=== PATIENT | female | born 1980 | race Caucasian/White ===

== ENCOUNTER 2017-06-05 00:28 | Emergency (ER) | payer OTHER ==
[~2017-06-05] VITALS: Ht 152.4 cm; Wt 79.4 kg
[~2017-06-05 00:28] MED LIST: 'PARAFON FORTE500 M1 PO; AMOXICILLIN500 M2 PO; ANAPROX DS550 MG PO; ATIVAN1 MG PO; AUGMENTIN 875 M1 TAB PO; AUGMENTIN 875875 MG PO; BENTYL10 MG PO; CIPRO500 MG PO; CIPROFLOXACIN500 MG PO; CLARITIN10 MG PO; CLINDAMYCIN HC300 MG PO; DARVOCET N 1001 TAB PO; DIFLUCAN150 MG PO; DOXYCYCLINE100 M3 PO; ELIMITE 5%60 GM T; FLAGYL500 MG PO; HYDROCODONE BIT1 T11 PO; IBU800 MG PO; LOMOTIL 0.025 M1 TAB PO; MOTRIN800 MG PO; Motrin,Rufen800 MG PO; NAPROSYN500 MG PO; NAPROXEN500 M1 PO; NORCO 325 MG-51 TAB PO; PEN-VEE K500 MG PO; PERCOCET 325 MG1 TA2 PO; PREDNISONE10 MG PO; PREDNISONE20 M1 PO; Phenergan25 MG PO; TRAMADOL HCL50 MG PO; ULTRAM50 MG PO; VALIUM10 MG PO; VENTOLIN H0.09 MG/AC INH; VIBRAMYCIN100 MG PO; VICODIN 5-3001 EACH PO; ZOFRAN ODT4 MG SL; ZOFRAN4 MG PO
[2017-06-05 01:07] LABS: BASO # 0.1 10*3/uL (0.0-0.1); BASO % 0.6 % (0.0-1.0); EOS # 0.3 10*3/uL (0.0-0.4); EOS % 2.5 % (1.0-4.0); HEMATOCRIT 42.4 % (37.0-47.0); HEMOGLOBIN 14.4 g/dl (12.0-16.0); LYMPH % 38.3 % (27.0-41.0); MEAN CELL VOLUME 93.8 fl (81.0-99.0); MEAN CORPUSCULAR HGB 31.9 pg (27.0-31.0); MEAN PLATELET VOLUME 9.5 fl (9.6-12.3); MONO # 0.7 10*3/uL (0.1-1.0); MONO % 6.8 % (3.0-9.0); NEUT # 5.4 10*3/uL (2.3-7.9); NEUT % 51.5 % (47.0-73.0); PLATELET COUNT AUTOMATED 262 10*3/uL (130-400); RED BLOOD COUNT 4.52 10*6/uL (4.10-5.10); RED CELL DISTRI WIDTH 12.7 % (0-14.5); WHITE BLOOD COUNT 10.5 10*3/uL (4.8-10.8)
[2017-06-05 01:23] LABS: ALBUMIN 3.4 gm/dl (3.1-4.5); ALKALINE PHOSPHATASE 91 U/L (45-117); BUN 11 mg/dl (7-24); CHLORIDE 106 mmol/L (98-107); CREATININE 0.93 mg/dL (0.55-1.02); POTASSIUM 3.8 mmol/L (3.5-5.1); SGOT/AST 13 IU/L (3-35); SGPT/ALT 15 U/L (12-78); SODIUM 140 mmol/L (136-145); TOTAL PROTEIN 6.9 gm/dL (6.4-8.2)
[2017-06-05 01:28] LABS: BILIRUBIN NEGATIVE (NEGATIVE); BLOOD 1+ (NEGATIVE); CLARITY CLEAR (CLEAR); COLOR YELLOW (YELLOW); GLUCOSE NEGATIVE (NEGATIVE); KETONE NEGATIVE (NEGATIVE); LEUKO ESTERASE 1+ (NEGATIVE); NITRITE NEGATIVE (NEGATIVE); SPECIFIC GRAVITY 1.015 (1.005-1.030)
[2017-06-05 01:35] LABS: BACTERIA 1+; RBC 16-20 rbc/hpf (0-2)
[2017-06-05] MEDS ORDERED: PYRIDIUM100 MG PO (02:51)
[2017-06-05] MEDS ORDERED: CIPRO500 MG PO (02:51)
== END 2017-06-05 03:07 | disposition home or self-care (01) ==
LOC: ED 00:28
PROVIDERS: Nurse Practitioner
DX: N39.0 Urinary tract infection, site not specified (principal); R10.32 Left lower quadrant pain; F17.200 Nicotine dependence, unspecified, uncomplicated; Z90.89 Acquired absence of other organs; Z90.710 Acquired absence of both cervix and uterus; Z88.2 Allergy status to sulfonamides

== ENCOUNTER 2017-08-14 13:25 | Emergency (ER) | payer OTHER ==
[~2017-08-14] VITALS: Ht 157.4 cm; Wt 81.6 kg
[~2017-08-14 13:25] MED LIST changes: +PYRIDIUM100 MG PO
[2017-08-14 14:11] LABS: BILIRUBIN 1+ (NEGATIVE); BLOOD 2+ (NEGATIVE); CLARITY SL CLOUDY (CLEAR); COLOR YELLOW (YELLOW); GLUCOSE NEGATIVE (NEGATIVE); KETONE TRACE (NEGATIVE); LEUKO ESTERASE TRACE (NEGATIVE); NITRITE NEGATIVE (NEGATIVE); PH 5.5 (5.0-9.0); SPECIFIC GRAVITY >= 1.030 (1.005-1.030)
[2017-08-14 14:13] LABS: BASO # 0.1 10*3/uL (0.0-0.1); BASO % 0.7 % (0.0-1.0); EOS # 0.2 10*3/uL (0.0-0.4); EOS % 2.1 % (1.0-4.0); HEMATOCRIT 44.7 % (37.0-47.0); LYMPH # 2.3 10*3/uL (1.3-4.4); LYMPH % 26.3 % (27.0-41.0); MEAN CELL VOLUME 92.5 fl (81.0-99.0); MEAN CORPUSCULAR HGB 31.1 pg (27.0-31.0); MEAN CORPUSCULAR HGB CONC 33.6 g/dl (33.0-37.0); MEAN PLATELET VOLUME 9.6 fl (9.6-12.3); MONO # 0.6 10*3/uL (0.1-1.0); MONO % 7.5 % (3.0-9.0); NEUT # 5.4 10*3/uL (2.3-7.9); PLATELET COUNT AUTOMATED 321 10*3/uL (130-400); RED BLOOD COUNT 4.83 10*6/uL (4.10-5.10); RED CELL DISTRI WIDTH 12.6 % (0-14.5); WHITE BLOOD COUNT 8.6 10*3/uL (4.8-10.8)
[2017-08-14 14:30] LABS: YEAST 2+
[2017-08-14 14:31] LABS: BACTERIA 1+; EPITHELIAL CELLS TNTC; MUCOUS 2+; RBC TNTC rbc/hpf (0-2)
[2017-08-14 14:38] LABS: ALBUMIN 3.2 gm/dl (3.1-4.5); ALKALINE PHOSPHATASE 110 U/L (45-117); BUN 3 mg/dl (7-24); CHLORIDE 105 mmol/L (98-107); LIPASE 80 U/L (73-393); POTASSIUM 3.5 mmol/L (3.5-5.1); SGOT/AST 15 IU/L (3-35); SGPT/ALT 15 U/L (12-78); SODIUM 139 mmol/L (136-145); TOTAL PROTEIN 7.1 gm/dL (6.4-8.2)
== END 2017-08-14 16:48 | disposition home or self-care (01) ==
LOC: ED 13:25
PROVIDERS: Physician Assistant
DX: B37.9 Candidiasis, unspecified (principal); R10.32 Left lower quadrant pain; Z88.2 Allergy status to sulfonamides; Z79.899 Other long term (current) drug therapy; Z90.89 Acquired absence of other organs

== ENCOUNTER 2018-02-01 12:26 | Emergency (ER) | payer OTHER ==
[~2018-02-01] VITALS: Ht 157.4 cm; Wt 66.7 kg
[2018-02-01] MEDS ORDERED: DOXYCYCLINE100 M3 PO (12:50)
[2018-02-01] MEDS ORDERED: NORCO 5-325 TA1 EACH PO (12:50)
[2018-02-01] MEDS ORDERED: Motrin,Rufen800 MG PO (12:50)
== END 2018-02-01 13:55 | disposition home or self-care (01) ==
LOC: ED 12:26
DX: L02.31 Cutaneous abscess of buttock (principal); Z88.2 Allergy status to sulfonamides

== ENCOUNTER 2018-04-12 16:33 | Emergency (ER) | payer OTHER ==
[~2018-04-12] VITALS: Ht 157.4 cm; Wt 63.5 kg
[~2018-04-12 16:33] MED LIST changes: +NORCO 5-325 TA1 EACH PO
[2018-04-12] MEDS ORDERED: CLINDAMYCIN HC300 MG PO (18:00)
[2018-04-12] MEDS ORDERED: NAPROSYN500 MG PO (18:00)
[2018-04-12] MEDS ORDERED: TYLENOL325 M1 PO (18:00)
== END 2018-04-12 18:05 | disposition home or self-care (01) ==
LOC: ED 16:33
DX: L02.31 Cutaneous abscess of buttock (principal); L73.2 Hidradenitis suppurativa; Z88.2 Allergy status to sulfonamides; F17.200 Nicotine dependence, unspecified, uncomplicated

== ENCOUNTER 2018-07-31 19:34 | Inpatient (IN) | payer SELFPAY ==
[~2018-07-31] VITALS: Ht 157.5 cm; Wt 57.4 kg
--- NOTE | ~2018-07-31 | CON ---
[place], [place] REPORT OF CONSULTATION NAME: BALDEV WALLS [facility] #: [id number] UNIT #: [id number] ROOM: 516 DOCTOR: BRANDIN REYES MD BIRTHDATE: [birth year] DOS: 08/02/2018 GASTROENDOSCOPIC REPORT HISTORY OF PRESENT ILLNESS: This is a 38-year-old patient who presented with chief complaint of diarrhea, abdominal cramp to Emergency Room. The patient has to be admitted for her investigation. Her white blood cell was 8.6, H and H of 14 and 40, differential within normal limits. Comprehensive metabolic panel, GFR greater than 60. Potassium was 3.2, which was supplemented. Liver function tests were normal. Surprisingly, her C-reactive protein was normal. Beta hCG urine was negative. Urinalysis, trace of blood, 3+ bacteria. CT scan of the abdomen done and diffuse mucosal thickening noticed of diffuse mucosal thickening noted of the distal and terminal ileum. The findings concerning for ileitis, possibly secondary to infectious diseases or inflammatory bowel diseases as we will address. Her potassium was corrected. B12, folate was done that was both low, folic 3.9. Vitamin D was 24. Vitamin B was 320 normal, stool cultures negative. C. diff negative, ova and parasite negative. No GERD, no cryptosporidium. PAST MEDICAL HISTORY: Associated with abdominal cramp and diarrhea. Concerned about diverticulitis, diverticulosis, irritable bowel syndrome, they all have been entertained as differential in her. PAST SURGICAL HISTORY: Cholecystectomy, appendectomy, bowel resection, hysterectomy, renal stent, T and A. SOCIAL HISTORY: Smoker, nonalcohol consumer. FAMILY HISTORY: Noncontributory. ALLERGIES: SULFA. MEDICATIONS: List has been reviewed including naproxen and ibuprofen and hydrocodone. REVIEW OF SYSTEMS: HEENT: Denies double vision, blurred vision. RESPIRATORY: Denies acute shortness of breath. CARDIOVASCULAR: Denies acute chest pain. DIGESTIVE SYSTEM: Abdominal pain, cramp, diarrhea. PHYSICAL EXAMINATION: VITAL SIGNS: Stable. HEENT: Within normal limit. NECK: Supple, no thyromegaly, no cervical lymphadenopathy. CHEST: Symmetric anatomy, equal expansion. No wheeze, no rhonchi. HEART: Normal sinus rhythm, no gallop, no murmur. ABDOMEN: Soft. No hepato-organomegaly. Bowel sounds within normal limits. EXTREMITIES: No cyanosis, no pedal edema. NEUROLOGIC: Alert, oriented to time, place, and person. [place], [place] REPORT OF CONSULTATION NAME: BALDEV WALLS UNIT #: [id number] ROOM: 516 DOCTOR: ERIC HODGE,BRANDIN BIRTHDATE: [birth year] IMPRESSION: Abdominal pain, diarrhea, ruling out Crohn's disease. Labs reviewed, hypokalemia has been corrected. Infectious Disease has been ruled out. Diverticulosis is known, renal stent UTI possibilities, work in progress for colonoscopy today. BRANDIN REYES MD CM:CONSTR:REPORT OF CONSULTATION 1122 08/02/18 7032 interface
--- NOTE | ~2018-07-31 | O ---
[place], [place] OPERATIVE NOTE NAME: BALDEV WALLS UNIT #: [id number] ROOM: 516 DOCTOR: ERIC HODGE,BRANDIN BIRTHDATE: [birth year] DOS: 08/02/2018 The patient has presented with abdominal pain, cramp, diarrhea has been already investigated hematologically and radiologically. PROCEDURE: Today's procedure part of investigation is colonoscopy plus biopsies. PREMEDICATION: Propofol. SCOPE: Olympus forwarding colonoscope 10L video. REPORT: After putting the patient in left lateral position and application of lubricant to the scope, the scope was introduced. Thereafter, under direct visualization, advanced through the length of colon without difficulty. Base of the cecum explored, appendiceal orifice identified except diverticulosis, no other pathology is seen. Terminal ileum with difficulty intubated. There is a long segment of terminal ileitis with ulceration, mucosal thickening, photographed, multiple biopsies obtained for documentation of Crohn's disease. The patient extubated, tolerated the procedure well. IMPRESSION AND PLAN: Crohn's disease, status post biopsy and photographic documentation. This patient requires to be on medication, optimal medication for her would be, except mesalamine, would be Humira; however, that is not available as inpatient coverage, I trust. I am going to see if Pentasa is covered for her. If it, so therefore, 1 gram q.i.d. of Pentasa total if it is 250 mg or 500 mg depending on availability and pharmacy and after that I am sure we are going to end up with Humira or Stelara or otherwise what biologic insurance company covers. Awaiting biopsy results for confirmation. Diet would be regular and activity ad jenny so far. BRANDIN REYES MD CM:OPRECORD:OPERATIVE NOTE 1122 12 BRANDIN REYES MD 08/02/182312 interface
[~2018-07-31 19:34] MED LIST changes: +TYLENOL325 M1 PO
[2018-07-31 19:36] VITALS: BP 117/85
[2018-07-31 20:15] LABS: BASO # 0.1 10*3/uL (0.0-0.1); BASO % 0.7 % (0.0-1.0); EOS # 0.3 10*3/uL (0.0-0.4); EOS % 3.1 % (1.0-4.0); HEMATOCRIT 40.9 % (37.0-47.0); LYMPH # 2.6 10*3/uL (1.3-4.4); LYMPH % 29.9 % (27.0-41.0); MEAN CELL VOLUME 94.7 fl (81.0-99.0); MEAN CORPUSCULAR HGB 32.4 pg (27.0-31.0); MEAN CORPUSCULAR HGB CONC 34.2 g/dl (33.0-37.0); MEAN PLATELET VOLUME 9.2 fl (9.6-12.3); MONO # 0.6 10*3/uL (0.1-1.0); MONO % 7.2 % (3.0-9.0); NEUT # 5.1 10*3/uL (2.3-7.9); NEUT % 58.8 % (47.0-73.0); PLATELET COUNT AUTOMATED 308 10*3/uL (130-400); RED BLOOD COUNT 4.32 10*6/uL (4.10-5.10); RED CELL DISTRI WIDTH 12.7 % (0-14.5); WHITE BLOOD COUNT 8.6 10*3/uL (4.8-10.8)
[2018-07-31 20:30] LABS: ALBUMIN 3.1 gm/dl (3.1-4.5); ALKALINE PHOSPHATASE 82 U/L (45-117); BUN 8 mg/dl (7-24); CHLORIDE 105 mmol/L (98-107); CREATININE 0.69 mg/dL (0.55-1.02); LIPASE 138 U/L (73-393); POTASSIUM 3.2 mmol/L (3.5-5.1); SGOT/AST 11 IU/L (3-35); SGPT/ALT 18 U/L (12-78); SODIUM 140 mmol/L (136-145); TOTAL PROTEIN 6.2 gm/dL (6.4-8.2)
[2018-07-31 20:40] VITALS: BP 127/78
[2018-07-31 21:01] LABS: BILIRUBIN NEGATIVE (NEGATIVE); BLOOD TRACE-INTACT (NEGATIVE); CLARITY SL CLOUDY (CLEAR); COLOR YELLOW (YELLOW); GLUCOSE NEGATIVE (NEGATIVE); KETONE NEGATIVE (NEGATIVE); LEUKO ESTERASE NEGATIVE (NEGATIVE); NITRITE NEGATIVE (NEGATIVE); SPECIFIC GRAVITY 1.015 (1.005-1.030); UROBILINOGEN 0.2 E.U./dl (0.2-1.0)
[2018-07-31 21:10] LABS: BACTERIA 3+
[2018-07-31 21:11] LABS: MUCOUS 2+; WBC 0-2 wbc/hpf (0-5)
[2018-07-31 22:00] VITALS: BP 102/56
[2018-08-01 00:45] VITALS: BP 101/70
[2018-08-01 04:00] VITALS: BP 111/63
[2018-08-01 06:41] LABS: BASO # 0.1 10*3/uL (0.0-0.1); BASO % 0.5 % (0.0-1.0); EOS # 0.1 10*3/uL (0.0-0.4); EOS % 1.5 % (1.0-4.0); HEMATOCRIT 41.1 % (37.0-47.0); HEMOGLOBIN 13.6 g/dl (12.0-16.0); LYMPH % 20.9 % (27.0-41.0); MEAN CELL VOLUME 97.2 fl (81.0-99.0); MEAN CORPUSCULAR HGB 32.2 pg (27.0-31.0); MEAN CORPUSCULAR HGB CONC 33.1 g/dl (33.0-37.0); MEAN PLATELET VOLUME 9.4 fl (9.6-12.3); MONO # 0.5 10*3/uL (0.1-1.0); MONO % 5.8 % (3.0-9.0); NEUT # 6.7 10*3/uL (2.3-7.9); NEUT % 71.1 % (47.0-73.0); PLATELET COUNT AUTOMATED 268 10*3/uL (130-400); RED BLOOD COUNT 4.23 10*6/uL (4.10-5.10); RED CELL DISTRI WIDTH 12.9 % (0-14.5); WHITE BLOOD COUNT 9.4 10*3/uL (4.8-10.8)
[2018-08-01 07:12] LABS: ALBUMIN 2.9 gm/dl (3.1-4.5); BUN 7 mg/dl (7-24); CHLORIDE 110 mmol/L (98-107); CHOLESTEROL 93 mg/dL (<200); CREATININE 0.67 mg/dL (0.55-1.02); PHOSPHOROUS 3.4 mg/dL (2.5-4.9); SGOT/AST 45 IU/L (3-35); SGPT/ALT 36 U/L (12-78); SODIUM 140 mmol/L (136-145); TOTAL PROTEIN 5.9 gm/dL (6.4-8.2); TRIGLYCERIDES 84 mg/dl (<150); VLDL CHOLESTEROL 17 mg/dL (6-40)
[2018-08-01 07:18] LABS: ALKALINE PHOSPHATASE 97 U/L (45-117); HDL CHOLESTEROL 32 mg/dl (40-60); LDL CHOLESTEROL 44 mg/dL (9-159)
[2018-08-01 07:25] LABS: POTASSIUM 4.2 mmol/L (3.5-5.1)
[2018-08-01 08:46] LABS: VITAMIN D, 25-HYDROXY 24.5 ng/mL (30-100)
[2018-08-01 12:00] VITALS: BP 102/69
[2018-08-01 16:00] VITALS: BP 101/59
[2018-08-01 20:00] VITALS: BP 89/51
[2018-08-01 20:10] VITALS: BP 82/62
[2018-08-02] VITALS (9 sets, daily range): BP systolic 11–123; BP diastolic 40–70
[2018-08-02 06:36] LABS: BASO # 0.1 10*3/uL (0.0-0.1); BASO % 0.8 % (0.0-1.0); EOS # 0.2 10*3/uL (0.0-0.4); HEMATOCRIT 38.6 % (37.0-47.0); HEMOGLOBIN 12.8 g/dl (12.0-16.0); LYMPH # 2.3 10*3/uL (1.3-4.4); MEAN CELL VOLUME 96.7 fl (81.0-99.0); MEAN CORPUSCULAR HGB 32.1 pg (27.0-31.0); MEAN CORPUSCULAR HGB CONC 33.2 g/dl (33.0-37.0); MEAN PLATELET VOLUME 9.7 fl (9.6-12.3); MONO # 0.5 10*3/uL (0.1-1.0); MONO % 6.2 % (3.0-9.0); NEUT # 4.9 10*3/uL (2.3-7.9); NEUT % 61.7 % (47.0-73.0); PLATELET COUNT AUTOMATED 263 10*3/uL (130-400); RED BLOOD COUNT 3.99 10*6/uL (4.10-5.10); RED CELL DISTRI WIDTH 12.8 % (0-14.5); WHITE BLOOD COUNT 7.9 10*3/uL (4.8-10.8)
[2018-08-02 06:53] LABS: BUN 6 mg/dl (7-24); CHLORIDE 107 mmol/L (98-107); CREATININE 0.58 mg/dL (0.55-1.02); PHOSPHOROUS 2.7 mg/dL (2.5-4.9); POTASSIUM 3.3 mmol/L (3.5-5.1); SODIUM 139 mmol/L (136-145)
[2018-08-03] VITALS: BP 93/59
[2018-08-03 06:34] LABS: BASO # 0.1 10*3/uL (0.0-0.1); BASO % 0.8 % (0.0-1.0); EOS # 0.2 10*3/uL (0.0-0.4); EOS % 2.9 % (1.0-4.0); HEMATOCRIT 36.3 % (37.0-47.0); HEMOGLOBIN 11.9 g/dl (12.0-16.0); LYMPH # 2.2 10*3/uL (1.3-4.4); LYMPH % 34.1 % (27.0-41.0); MEAN CELL VOLUME 97.1 fl (81.0-99.0); MEAN CORPUSCULAR HGB 31.8 pg (27.0-31.0); MEAN CORPUSCULAR HGB CONC 32.8 g/dl (33.0-37.0); MEAN PLATELET VOLUME 9.7 fl (9.6-12.3); MONO # 0.5 10*3/uL (0.1-1.0); MONO % 7.4 % (3.0-9.0); NEUT # 3.6 10*3/uL (2.3-7.9); NEUT % 54.5 % (47.0-73.0); PLATELET COUNT AUTOMATED 248 10*3/uL (130-400); RED BLOOD COUNT 3.74 10*6/uL (4.10-5.10); WHITE BLOOD COUNT 6.5 10*3/uL (4.8-10.8)
[2018-08-03 06:44] LABS: CHLORIDE 109 mmol/L (98-107); POTASSIUM 3.9 mmol/L (3.5-5.1); SODIUM 138 mmol/L (136-145)
[2018-08-03 06:51] LABS: ALBUMIN 2.4 gm/dl (3.1-4.5); ALKALINE PHOSPHATASE 71 U/L (45-117); BUN 7 mg/dl (7-24); SGOT/AST 10 IU/L (3-35); SGPT/ALT 20 U/L (12-78)
[2018-08-03 08:00] VITALS: BP 88/50
[2018-08-03 12:00] VITALS: BP 109/69
[2018-08-03 16:00] VITALS: BP 148/77
[2018-08-03 20:00] VITALS: BP 116/73
[2018-08-04] VITALS: BP 95/56
[2018-08-04 06:24] LABS: BASO % 0.6 % (0.0-1.0); EOS # 0.2 10*3/uL (0.0-0.4); EOS % 3.1 % (1.0-4.0); HEMATOCRIT 36.7 % (37.0-47.0); HEMOGLOBIN 12.2 g/dl (12.0-16.0); LYMPH # 1.9 10*3/uL (1.3-4.4); LYMPH % 26.3 % (27.0-41.0); MEAN CELL VOLUME 96.1 fl (81.0-99.0); MEAN CORPUSCULAR HGB 31.9 pg (27.0-31.0); MEAN CORPUSCULAR HGB CONC 33.2 g/dl (33.0-37.0); MEAN PLATELET VOLUME 9.4 fl (9.6-12.3); MONO # 0.5 10*3/uL (0.1-1.0); MONO % 7.5 % (3.0-9.0); NEUT # 4.4 10*3/uL (2.3-7.9); NEUT % 62.2 % (47.0-73.0); PLATELET COUNT AUTOMATED 245 10*3/uL (130-400); RED BLOOD COUNT 3.82 10*6/uL (4.10-5.10); RED CELL DISTRI WIDTH 12.9 % (0-14.5)
[2018-08-04 06:53] LABS: ALBUMIN 2.4 gm/dl (3.1-4.5); BUN 7 mg/dl (7-24); CHLORIDE 108 mmol/L (98-107); CREATININE 0.64 mg/dL (0.55-1.02); POTASSIUM 4.1 mmol/L (3.5-5.1); SGOT/AST 11 IU/L (3-35); SGPT/ALT 18 U/L (12-78); SODIUM 140 mmol/L (136-145)
[2018-08-04 06:55] LABS: ALKALINE PHOSPHATASE 65 U/L (45-117); TOTAL PROTEIN 5.5 gm/dL (6.4-8.2)
[2018-08-04 08:00] VITALS: BP 94/62
[2018-08-04 12:00] VITALS: BP 108/60
[2018-08-04] MEDS ORDERED: HUMIRA40 MG/0.3 SQ (15:11)
[2018-08-04] MEDS ORDERED: HUMIRA PEN80 MG/0.8 SQ (15:11)
[2018-08-04] MEDS ORDERED: NATURE'S BLEND F1 MG PO (15:11)
[2018-08-04] MEDS ORDERED: VITAMIN D32000 UNI1 PO (15:11)
== END 2018-08-04 17:30 | disposition home or self-care (01) | DRG 386 ==
LOC: ED 19:34 → EDHOLD 23:27 → 5E 23:27
PROVIDERS: Internal Medicine; Student in an Organized Health Care Education/Training Program
PROC: 0DBB8ZX Excision of Ileum, Via Natural or Artificial Opening Endoscopic, Diagnostic (ICD-10-PCS; principal; 2018-08-02)
DX: K50.00 Crohn's disease of small intestine without complications (principal); E44.0 Moderate protein-calorie malnutrition; K63.3 Ulcer of intestine; K52.9 Noninfective gastroenteritis and colitis, unspecified; E87.6 Hypokalemia; E86.0 Dehydration; R31.29 Other microscopic hematuria; R82.71 Bacteriuria; N20.0 Calculus of kidney; K57.90 Diverticulosis of intestine, part unspecified, without perforation or abscess without bleeding; Z90.49 Acquired absence of other specified parts of digestive tract; Z91.09 Other allergy status, other than to drugs and biological substances; Z72.0 Tobacco use; Z71.6 Tobacco abuse counseling; Z88.2 Allergy status to sulfonamides; Z87.440 Personal history of urinary (tract) infections; Z90.710 Acquired absence of both cervix and uterus; Z84.89 Family history of other specified conditions; Z68.23 Body mass index [BMI] 23.0-23.9, adult

== ENCOUNTER → 2018-09-07 | Outpatient (CLI) | payer SELFPAY ==
[~2018-09-07] MED LIST changes: +BALSALAZIDE DI750 MG PO; +Carafate1 GM/10 ML PO; +HUMIRA PEN80 MG/0.8 SQ; +HUMIRA40 MG/0.3 SQ; +NATURE'S BLEND F1 MG PO; +PANTOPRAZOLE SO40 MG PO; +VITAMIN D32000 UNI1 PO; +[UNRECOGNIZED DRUG - REMARK] PO
== END | disposition home or self-care (01) ==
LOC: RESCLI 02:44
DX: Z00.00 Encounter for general adult medical examination without abnormal findings (principal); K50.918 Crohn's disease, unspecified, with other complication; E55.9 Vitamin D deficiency, unspecified; E53.8 Deficiency of other specified B group vitamins; F17.210 Nicotine dependence, cigarettes, uncomplicated; Z79.899 Other long term (current) drug therapy; Z90.49 Acquired absence of other specified parts of digestive tract; Z71.6 Tobacco abuse counseling; Z88.2 Allergy status to sulfonamides; Z91.010 Allergy to peanuts

== ENCOUNTER 2018-10-29 03:47 | Inpatient (IN) | payer SELFPAY ==
[2018-10-29] VITALS (22 sets, daily range): BP systolic 84–112; BP diastolic 50–70
[~2018-10-29] VITALS: Ht 157.4 cm; Wt 59.4 kg
--- NOTE | ~2018-10-29 | O ---
[place], [place] OPERATIVE NOTE [id number] UN[facility] #: [id number] ROOM: 415 DOCTOR: BRANDIN REYES MD BIRTHDATE: [birth year] DOS: 10/30/2018 INDICATIONS: This is a 38-year-old patient, who is presented with chief complaint of abdominal pain, undergoing investigation. The patient with known history of established Crohn's colitis, status post bowel resection. She is on Humira therapy. PROCEDURE: Today's procedure part of investigation is panendoscopy plus biopsy. PREMEDICATION: Propofol. SCOPE: Olympus forward-viewing gastroscope Q10 video. REPORT: After putting the patient in left lateral position and application of lubricant to the scope, the scope was introduced. Thereafter, under direct visualization, advanced through the length of esophagus without difficulty. Gastric pouch was entered. Evidence of gastritis was noticed. As I entered the duodenum irregularity of the duodenum consistent with duodenitis and superficial ulcerations, multiple in D2 of the anatomy was noticed. Multiple biopsies obtained. Scope was gradually withdrawn. The patient extubated, tolerated the procedure well. IMPRESSION: Duodenitis, duodenal ulcers, status post multiple biopsies, gastritis, and history of Crohn's disease. PLAN AND DISCUSSION: We will continue with the scheduled Humira every other week. Supportive management otherwise. Labs and records have been reviewed. There is no point of acute concern. Followup with her own collarette separator. BRANDIN REYES MD CM:OPRECORD:OPERATIVE NOTE 1154 1209 BRANDIN REYES MD 11/01/18 5820 interface
--- NOTE | ~2018-10-29 | EKG ---
[place], [place] ELECTROCARDIOGRAM REPORT NAME: BALDEV WALLS UNIT #: [id number] ROOM: 415 DOCTOR: IANANY DRAFT REPORT BIRTHDATE: [birth year] [facility] Test Date: 2018-10-29 Test Time: 04:09:49 Pat Name: BALDEV WALLS Department: Room: 415 Gender: F Paramedical Aide: Janine Galarza : 1980 Requested By: MARTHA FLETCHER Order Number: [id number] Reading MD: Loretta Ojeda MD Measurements Intervals [place] Rate: 81 P: 68 LA: 156 QRS: 79 QRSD: 110 T: 52 QT: 386 QTc: 448 Interpretive Statements Sinus rhythm RSR' in V1 or V2, right VCD or RVH No previous ECG available for comparison Electronically Signed On 10-29-2018 7:27:26 PST by Loretta Ojeda MD CM:EKGRPT:ELECTROCARDIOGRAM REPORT [id number] MARTHA FLETCHER MD EPIPHANY DRAFT REPORT MARTHA FLETCHER MD
--- NOTE | ~2018-10-29 | CON ---
[place], [place] REPORT OF CONSULTATION NAME: BALDEV WALLS [facility] #: [id number] UNIT #: [id number] ROOM: 415 DOCTOR: BRANDIN REYES MD BIRTHDATE: [birth year] DOS: 10/30/2018 GASTROENDOSCOPIC CONSULTATION REPORT HISTORY OF PRESENT ILLNESS: A 38-year-old patient who presented with chief complaint of epigastric abdominal pain, undergoing investigation. The patient has been admitted through Emergency Room with white blood cell of 8, H and H of 13 and 38, differential within normal limit. Lactic acid normal. Comprehensive metabolic panel, INR 0.9. Chest x-ray, no acute cardiopulmonary. Comprehensive metabolic panel reassessed again, normal findings. Liver function tests, kidneys normal. CT scan of the abdomen and pelvis was done consistent with subtle ileitis, presumably inflammatory given history of Crohn's, so this is presumed be secondary to carrying a history of Crohn's disease; however, none substantiated. Urine cultures negative. CBC differentials within normal limits. PAST MEDICAL HISTORY: Diverticulosis, Crohn's, nephrolithiasis, irritable bowel syndrome, scabies. PAST SURGICAL HISTORY: Cholecystectomy, hysterectomy, renal stent, tonsillectomy, adenoidectomy, appendectomy. SOCIAL HISTORY: Smoker of a pack of cigarettes daily. Nonalcohol consumer. She is consumer of 6-pack of carbonated soda drinks per day. FAMILY HISTORY: Noncontributory. ALLERGIES: SULFA. MEDICATIONS: List was reviewed. She is on Humira for her Crohn's disease. REVIEW OF SYSTEMS: In general, HEENT: Denies double vision, blurred vision. RESPIRATORY: Denies shortness of breath. CARDIOVASCULAR: Denies chest pain. DIGESTIVE SYSTEM: Epigastric abdominal pain. PHYSICAL EXAMINATION: VITAL SIGNS: Stable. HEENT: Head normocephalic, nontraumatic. Mouth and buccal mucosa benign. NECK: Supple, no thyromegaly, no cervical lymphadenopathy. CHEST: Symmetric anatomy, equal expansion. No wheeze. No rhonchi. COPD pattern, however. HEART: Normal sinus rhythm, no gallop, no murmur. ABDOMEN: Soft. No hepato-organomegaly. Bowel sounds present. No pulsatile mass. EXTREMITIES: No cyanosis. No pedal edema. NEUROLOGIC: Alert, oriented to time, place, person. IMPRESSION: Epigastric abdominal pain, history of Crohn's disease, history of [place], [place] REPORT OF CONSULTATION NAME: BALDEV WALLS [facility] #: [id number] UNIT #: [id number] ROOM: 415 DOCTOR: ERIC HODGE,BRANDIN BIRTHDATE: [birth year] irritable bowel syndrome, the patient is on Humira. CT scan readings wall thickening and mucosal enhancement of the terminal ileum. This history has already been confirmed. Anastomotic sutures has been noticed in the abdomen. PLAN AND DISCUSSION: We are going to endoscopically assess the patient making sure she does not have peptic ulcer disease. As far as her Crohn's disease is concerned, she is already confirmed to have the disease and on medication. BRANDIN REYES MD CM:CONSTR:REPORT OF CONSULTATION 1140 10/31/18 0018 interface
[~2018-10-29 03:47] MED LIST changes: -BALSALAZIDE DI750 MG PO; -Carafate1 GM/10 ML PO; -PANTOPRAZOLE SO40 MG PO; -[UNRECOGNIZED DRUG - REMARK] PO
[2018-10-29 04:16] LABS: BASO % 0.5 % (0.0-1.0); EOS # 0.2 10*3/uL (0.0-0.4); EOS % 2.4 % (1.0-4.0); HEMATOCRIT 38.7 % (37.0-47.0); HEMOGLOBIN 13.2 g/dl (12.0-16.0); LYMPH # 2.5 10*3/uL (1.3-4.4); LYMPH % 31.4 % (27.0-41.0); MEAN CELL VOLUME 93.3 fl (81.0-99.0); MEAN CORPUSCULAR HGB 31.8 pg (27.0-31.0); MEAN CORPUSCULAR HGB CONC 34.1 g/dl (33.0-37.0); MEAN PLATELET VOLUME 9.4 fl (9.6-12.3); MONO # 0.6 10*3/uL (0.1-1.0); MONO % 7.7 % (3.0-9.0); NEUT # 4.7 10*3/uL (2.3-7.9); NEUT % 57.9 % (47.0-73.0); PLATELET COUNT AUTOMATED 275 10*3/uL (130-400); RED BLOOD COUNT 4.15 10*6/uL (4.10-5.10); WHITE BLOOD COUNT 8.1 10*3/uL (4.8-10.8)
[2018-10-29 04:26] LABS: INTERNATIONAL NORM RATIO 0.9 (2.0-3.5)
--- NOTE | 2018-10-29 04:38 | NUR ---
PATIENT REPORTS PAIN RELIEF WITH MEDICATION
[2018-10-29 04:39] LABS: ALBUMIN 2.7 gm/dl (3.1-4.5); ALKALINE PHOSPHATASE 86 U/L (45-117); BUN 16 mg/dl (7-24); CHLORIDE 103 mmol/L (98-107); CREATININE 0.64 mg/dL (0.55-1.02); LIPASE 133 U/L (73-393); POTASSIUM 4.1 mmol/L (3.5-5.1); SGOT/AST 9 IU/L (3-35); SGPT/ALT 10 U/L (12-78); SODIUM 137 mmol/L (136-145); TOTAL PROTEIN 6.2 gm/dL (6.4-8.2)
[2018-10-29 05:12] LABS: BILIRUBIN NEGATIVE (NEGATIVE); BLOOD NEGATIVE (NEGATIVE); CLARITY SL CLOUDY (CLEAR); COLOR YELLOW (YELLOW); GLUCOSE NEGATIVE (NEGATIVE); KETONE NEGATIVE (NEGATIVE); LEUKO ESTERASE NEGATIVE (NEGATIVE); NITRITE NEGATIVE (NEGATIVE); SPECIFIC GRAVITY <= 1.005 (1.005-1.030); UROBILINOGEN 0.2 E.U./dl (0.2-1.0)
[2018-10-29 05:22] LABS: BACTERIA 3+
--- NOTE | 2018-10-29 05:23 | NUR ---
PATIENT NOTED TO BE HYPOTENSIVE ON MONITOR. SPO2 91% ON ROOM AIR. UPON ENTERING THE PATIENT'S ROOM, SHE IS ASLEEP. 2L NC APPLIED. SPO2 NOW 95% ON 2L. DR GUERRERO AWARE. ANOTHER NS BOLUS STARTED.
--- NOTE | 2018-10-29 06:05 | NUR ---
PATIENT PLACED BACK ON O2 AFTER BEING REMOVED APPROX 5 MINUTES AGO FOR SPO2 OF 100% ON 2LNC. SPO2 DROPPED TO 91% WITHOUT O2
--- NOTE | 2018-10-29 07:23 | NUR ---
A 38, admitted to , under the services of FRANCESCO Esqueda DO with a diagnosis of ILEITIS, TERMINAL. Chief complaint is DIARRHEA. Patient arrived via bed from ER. Initial assessment completed. Vital signs taken and recorded. FRANCESCO ESQUEDA DO notified of admission to the unit. Orders received. See assessment for past medical history, medications and allergies. Patient and/or family oriented to unit. [facility] visitation policy reviewed. Clothing/patient valuable form completed. JERAMY MOLINA
--- NOTE | 2018-10-29 08:09 | NUR ---
24 HR chart check completed. Patient resting quietly with no c/o discomfort. Respirations easy and regular. Vital signs stable. No overt distress. ELLYN BOWER
[2018-10-29] MEDS ORDERED: [UNRECOGNIZED DRUG - REMARK] PO (08:57)
--- NOTE | 2018-10-29 09:05 | NUR ---
MEDICATED WITH PO NORCO ORDERED PER PT REQUEST FOR C/O PAIN TO LUQ RATED 10/10 AND "HURTING TO EVEN TALK".
[2018-10-29] MEDS ORDERED: BALSALAZIDE DI750 MG PO (10:34)
--- NOTE | 2018-10-29 11:00 | NUR ---
DR LEARY NOTIFIED THAT PT'S MEDS ARE RECONCILED.
--- NOTE | 2018-10-29 11:14 | NUR ---
MEDICATION EFFECTIVE FOR PAIN.
--- NOTE | 2018-10-29 14:32 | NUR ---
MEDICATED WITH PO NORCO ORDERED PER PT REQUEST FOR C/O LUQ PAIN RATED 10/10. PREVIOUS DOSE SOMEWHAT EFFECTIVE.
--- NOTE | 2018-10-29 16:08 | NUR ---
DR LEARY NOTIFIED OF PT'S C/O THAT PAIN MEDICATION IS NOT CURRENTLY EFFECTIVE AND THAT SHE WANTS A NICOTINE PATCH.
--- NOTE | 2018-10-29 17:43 | NUR ---
DR LEARY AWARE OF CONTINUED PAIN COMPLAINTS BY PT AND STATES TO GIVE NORCO NOW.
--- NOTE | 2018-10-29 18:00 | NUR ---
MEDICATED WITH PO NORCO ORDERED PER PT REQUEST FOR C/O PAIN TO LUQ. PREVIOUS DOSE NOT EFFECTIVE.
--- NOTE | 2018-10-29 18:45 | NUR ---
MEDICATION EFFECTIVE FOR PAIN AT THIS TIME.
[2018-10-30] VITALS (9 sets, daily range): BP systolic 101–138; BP diastolic 49–89
--- NOTE | 2018-10-30 02:32 | NUR ---
ZOFRAN GIVEN PER C/O NAUSEA WILL CONT TO MONTIOR
--- NOTE | 2018-10-30 03:31 | NUR ---
TYLENOL GIVEN PER REQUEST FOR C/O ABDOMINAL PAIN
[2018-10-30 06:09] LABS: BASO % 0.1 % (0.0-1.0); HEMATOCRIT 37.1 % (37.0-47.0); HEMOGLOBIN 12.4 g/dl (12.0-16.0); LYMPH % 14.8 % (27.0-41.0); MEAN CELL VOLUME 93.9 fl (81.0-99.0); MEAN CORPUSCULAR HGB 31.4 pg (27.0-31.0); MEAN CORPUSCULAR HGB CONC 33.4 g/dl (33.0-37.0); MEAN PLATELET VOLUME 9.9 fl (9.6-12.3); MONO # 0.2 10*3/uL (0.1-1.0); MONO % 2.2 % (3.0-9.0); NEUT # 5.6 10*3/uL (2.3-7.9); NEUT % 82.5 % (47.0-73.0); PLATELET COUNT AUTOMATED 268 10*3/uL (130-400); RED BLOOD COUNT 3.95 10*6/uL (4.10-5.10); RED CELL DISTRI WIDTH 11.9 % (0-14.5); WHITE BLOOD COUNT 6.7 10*3/uL (4.8-10.8)
[2018-10-30 06:23] LABS: BUN 10 mg/dl (7-24); CHLORIDE 109 mmol/L (98-107); CHOLESTEROL 102 mg/dL (<200); CREATININE 0.57 mg/dL (0.55-1.02); PHOSPHOROUS 2.4 mg/dL (2.5-4.9); POTASSIUM 4.2 mmol/L (3.5-5.1); SODIUM 140 mmol/L (136-145); TRIGLYCERIDES 61 mg/dl (<150); VLDL CHOLESTEROL 12 mg/dL (6-40)
--- NOTE | 2018-10-30 06:28 | NUR ---
PT NPO FOR EGD WITH DR REYES
[2018-10-30 06:32] LABS: HDL CHOLESTEROL 41 mg/dl (40-60); LDL CHOLESTEROL 49 mg/dL (9-159); THYROID STIM HORMONE (HS) 0.224 uIU/ml (0.358-4.75)
--- NOTE | 2018-10-30 09:00 | NUR ---
Lamp Assembler in to talk to patient. Patient states lives at home with ava. There are few steps in the home. Physician: [facility]acy: [facility] Home health services: none Patient's level of ADLs: INDEPENDENT Patient has working utilities: all working DME: none Follow-up physician's appointment after d/c: will be made by [facility] nurse director upon discharge Does patient want to access PORTAL?: no Discharge plan discussed with patient, patient lives at home with ava, she states she is independent in adls and ambulation, works, drives, patient states she will be going home when able and denies any home needs. BAILEE EDWARDS
--- NOTE | 2018-10-30 09:00 | NUR ---
case management also discussed with patient her not having any insurance, informed her that Janae from [employer] would be talking with her regaring help with paying the hospital bill. 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
[2018-10-30 09:09] LABS: VITAMIN D, 25-HYDROXY 30.8 ng/mL (30-100)
--- NOTE | 2018-10-30 10:00 | NUR ---
Pt taken off floor to OR for EGD.
--- NOTE | 2018-10-30 14:16 | NUR ---
Medicated with norco per prn order for complaints of abdominal pain.
--- NOTE | 2018-10-30 15:18 | NUR ---
Pt states she is still experiencing abdominal pain, pt is tearful holding left lower quad of abdomen. Pt had just finished eating lunch. Pt states norco given earlier has not helped. Spoke with Dr. Rodrigez, he states he is here on 4th floor and will come and see pt.
--- NOTE | 2018-10-30 15:36 | NUR ---
Medicated with morphine iv per prn order for complaints of abdominal pain.
--- NOTE | 2018-10-30 16:03 | NUR ---
Pt states that morphine was effective.
--- NOTE | 2018-10-30 20:59 | NUR ---
MEDICATED WITH PO NORCO ORDERED PER PT REQUEST FOR C/O PAIN RATED 5/10 TO ABDOMEN.
[2018-10-31] VITALS: BP 89/50
[2018-10-31 07:17] LABS: HEMOGLOBIN 12.3 g/dl (12.0-16.0); LYMPH # 1.7 10*3/uL (1.3-4.4); LYMPH % 27.2 % (27.0-41.0); MEAN CELL VOLUME 95.2 fl (81.0-99.0); MEAN CORPUSCULAR HGB 30.8 pg (27.0-31.0); MEAN CORPUSCULAR HGB CONC 32.4 g/dl (33.0-37.0); MEAN PLATELET VOLUME 9.6 fl (9.6-12.3); MONO # 0.3 10*3/uL (0.1-1.0); MONO % 5.4 % (3.0-9.0); NEUT # 4.2 10*3/uL (2.3-7.9); NEUT % 66.9 % (47.0-73.0); PLATELET COUNT AUTOMATED 267 10*3/uL (130-400); RED BLOOD COUNT 3.99 10*6/uL (4.10-5.10); WHITE BLOOD COUNT 6.3 10*3/uL (4.8-10.8)
[2018-10-31 07:38] LABS: BUN 9 mg/dl (7-24); CHLORIDE 108 mmol/L (98-107); CREATININE 0.54 mg/dL (0.55-1.02); POTASSIUM 4.1 mmol/L (3.5-5.1); SODIUM 141 mmol/L (136-145)
[2018-10-31 08:00] VITALS: BP 121/77
--- NOTE | 2018-10-31 09:00 | NUR ---
case management visits with patient, patient states she will be going home when able and denies any home needs
--- NOTE | 2018-10-31 09:34 | NUR ---
PT REQUESTED NORCO, ABDOMINAL PAIN 03/14.
[2018-10-31] MEDS ORDERED: NORCO 5-325 TA1 EACH PO (10:28)
[2018-10-31] MEDS ORDERED: PREDNISONE10 MG PO (10:28)
--- NOTE | 2018-10-31 11:45 | NUR ---
Discharge instructions reviewed with patient/family. Patient receptive and verbalizes understanding. Follow-up care understood, pt has seen resident clinic in the past and will call to make an appointment. understands to follow up with . iv removed, dressing applied. Written instructions given to patient/family. pt given norco rx. declined wheelchair for discharge SILVERIO MENDEZ
[2018-11-16] MEDS ORDERED: Carafate1 GM/10 ML PO (14:28)
[2018-11-16] MEDS ORDERED: PANTOPRAZOLE SO40 MG PO (14:28)
[2018-11-16] MEDS ORDERED: NORCO 5-325 TA1 EACH PO (14:59)
[2019-01-16] MEDS ORDERED: MEDROL DOSEPAK4 MG PO (10:00)
[2019-01-16] MEDS ORDERED: LOMOTIL 2.5-0.1 EACH PO (10:01)
[2019-02-08] MEDS ORDERED: IMURAN50 MG PO (09:31)
[2019-02-08] MEDS ORDERED: CARAFATE1 G1 PO (09:32)
[2019-02-11] MEDS ORDERED: IMURAN50 MG PO (10:26)
[2019-02-11] MEDS ORDERED: PREDNISONE10 MG PO (10:26)
[2019-02-11] MEDS ORDERED: BALSALAZIDE DI750 MG PO (10:26)
== END 2018-10-31 11:45 | disposition home or self-care (01) | DRG 385 ==
LOC: ED 03:47 → 4E 05:25 → EDHOLD 05:25 → 4E 05:39
PROVIDERS: Emergency Medicine Emergency Medical Services; Internal Medicine; ADMIT Internal Medicine
PROC: 0DB78ZX Excision of Stomach, Pylorus, Via Natural or Artificial Opening Endoscopic, Diagnostic (ICD-10-PCS; principal; 2018-10-30)
DX: K50.00 Crohn's disease of small intestine without complications (principal); E43 Unspecified severe protein-calorie malnutrition; I95.9 Hypotension, unspecified; K29.80 Duodenitis without bleeding; K26.9 Duodenal ulcer, unspecified as acute or chronic, without hemorrhage or perforation; K29.70 Gastritis, unspecified, without bleeding; R00.1 Bradycardia, unspecified; E87.8 Other disorders of electrolyte and fluid balance, not elsewhere classified; F17.210 Nicotine dependence, cigarettes, uncomplicated; K57.90 Diverticulosis of intestine, part unspecified, without perforation or abscess without bleeding; Z71.6 Tobacco abuse counseling; Z87.442 Personal history of urinary calculi; Z90.49 Acquired absence of other specified parts of digestive tract; Z90.710 Acquired absence of both cervix and uterus; Z88.2 Allergy status to sulfonamides; Z79.899 Other long term (current) drug therapy; Z82.0 Family history of epilepsy and other diseases of the nervous system; Z68.23 Body mass index [BMI] 23.0-23.9, adult

== ENCOUNTER 2018-11-24 12:27 | Inpatient (IN) | payer OTHER ==
[~2018-11-24] VITALS: Ht 157.4 cm; Wt 59.0 kg
[~2018-11-24 12:27] MED LIST changes: +BALSALAZIDE DI750 MG PO; +Carafate1 GM/10 ML PO; +PANTOPRAZOLE SO40 MG PO; +[UNRECOGNIZED DRUG - REMARK] PO
[2018-11-24 12:28] VITALS: BP 124/81
[2018-11-24 13:52] LABS: BILIRUBIN NEGATIVE (NEGATIVE); BLOOD 2+ (NEGATIVE); CLARITY CLEAR (CLEAR); COLOR YELLOW (YELLOW); GLUCOSE NEGATIVE (NEGATIVE); KETONE NEGATIVE (NEGATIVE); LEUKO ESTERASE NEGATIVE (NEGATIVE); NITRITE NEGATIVE (NEGATIVE); PH 5.5 (5.0-9.0); SPECIFIC GRAVITY 1.015 (1.005-1.030); UROBILINOGEN 0.2 E.U./dl (0.2-1.0)
[2018-11-24 13:56] LABS: BASO # 0.1 10*3/uL (0.0-0.1); BASO % 0.7 % (0.0-1.0); EOS # 0.2 10*3/uL (0.0-0.4); EOS % 2.2 % (1.0-4.0); HEMATOCRIT 44.8 % (37.0-47.0); LYMPH # 2.8 10*3/uL (1.3-4.4); LYMPH % 36.4 % (27.0-41.0); MEAN CELL VOLUME 95.1 fl (81.0-99.0); MEAN CORPUSCULAR HGB 31.8 pg (27.0-31.0); MEAN CORPUSCULAR HGB CONC 33.5 g/dl (33.0-37.0); MEAN PLATELET VOLUME 9.2 fl (9.6-12.3); MONO # 0.5 10*3/uL (0.1-1.0); MONO % 6.8 % (3.0-9.0); NEUT # 4.1 10*3/uL (2.3-7.9); NEUT % 53.6 % (47.0-73.0); PLATELET COUNT AUTOMATED 291 10*3/uL (130-400); RED BLOOD COUNT 4.71 10*6/uL (4.10-5.10); RED CELL DISTRI WIDTH 12.7 % (0-14.5); WHITE BLOOD COUNT 7.6 10*3/uL (4.8-10.8)
[2018-11-24 14:04] LABS: BACTERIA TRACE; MUCOUS 1+; WBC 0-2 wbc/hpf (0-5)
[2018-11-24 14:28] LABS: ALBUMIN 3.2 gm/dl (3.1-4.5); ALKALINE PHOSPHATASE 73 U/L (45-117); BUN 8 mg/dl (7-24); CHLORIDE 107 mmol/L (98-107); CREATININE 0.61 mg/dL (0.55-1.02); LIPASE 128 U/L (73-393); POTASSIUM 3.8 mmol/L (3.5-5.1); SGOT/AST 11 IU/L (3-35); SGPT/ALT 16 U/L (12-78); SODIUM 138 mmol/L (136-145); TOTAL PROTEIN 6.8 gm/dL (6.4-8.2)
--- NOTE | 2018-11-24 16:20 | NUR ---
THE FENTANYL DID HELP WITH THE PATIENTS PAIN LEVEL
[2018-11-24 17:00] VITALS: BP 107/62
--- NOTE | 2018-11-24 17:00 | NUR ---
A 38, admitted to , under the services of ISMAEL Murray DO with a diagnosis of EXACERBATION OF CROHNS DISEASE. Chief complaint is ABDOMINAL PAIN. Patient arrived via wheel chair from ER. Monitor applied. Initial assessment completed. Vital signs taken and recorded. ISMAEL MURRAY DO notified of admission to the unit. Orders received. See assessment for past medical history, medications and allergies. Patient and/or family oriented to unit. [facility] visitation policy reviewed. Clothing/patient valuable form completed. SHIRIN CUEVAS
--- NOTE | 2018-11-24 18:45 | NUR ---
PHYSICIAN NOTIFIED THAT PT MED REC IS UP TO DATE AT THIS TIME.
[2018-11-24 20:00] VITALS: BP 110/64
--- NOTE | 2018-11-24 20:18 | NUR ---
RAMONACO GIVEN PER ORDER FOR ABD PAIN RATED "8". SEE MAR.
--- NOTE | 2018-11-24 21:15 | NUR ---
DIAN EFFECTIVE PER PT.
[2018-11-25] VITALS: BP 102/69
--- NOTE | 2018-11-25 01:31 | NUR ---
24 HR chart check completed.
--- NOTE | 2018-11-25 02:02 | NUR ---
NORCO GIVEN PER ORDER FOR ABD PAIN RATED "7-8" PER PTAmeya GUY.
--- NOTE | 2018-11-25 04:00 | NUR ---
SLEEPING NO DISTRESS NOTED.
[2018-11-25 06:23] LABS: ALBUMIN 2.5 gm/dl (3.1-4.5); ALKALINE PHOSPHATASE 62 U/L (45-117); BASO % 0.1 % (0.0-1.0); BUN 9 mg/dl (7-24); CHLORIDE 110 mmol/L (98-107); CREATININE 0.47 mg/dL (0.55-1.02); EOS % 0.1 % (1.0-4.0); HEMOGLOBIN 12.5 g/dl (12.0-16.0); LYMPH # 1.4 10*3/uL (1.3-4.4); MEAN CELL VOLUME 95.6 fl (81.0-99.0); MEAN CORPUSCULAR HGB 32.2 pg (27.0-31.0); MEAN CORPUSCULAR HGB CONC 33.7 g/dl (33.0-37.0); MEAN PLATELET VOLUME 9.8 fl (9.6-12.3); MONO # 0.4 10*3/uL (0.1-1.0); MONO % 4.1 % (3.0-9.0); NEUT # 7.2 10*3/uL (2.3-7.9); NEUT % 79.3 % (47.0-73.0); PHOSPHOROUS 3.1 mg/dL (2.5-4.9); PLATELET COUNT AUTOMATED 247 10*3/uL (130-400); POTASSIUM 3.9 mmol/L (3.5-5.1); RED BLOOD COUNT 3.88 10*6/uL (4.10-5.10); RED CELL DISTRI WIDTH 12.6 % (0-14.5); SGOT/AST 10 IU/L (3-35); SGPT/ALT 13 U/L (12-78); SODIUM 140 mmol/L (136-145); TOTAL PROTEIN 5.5 gm/dL (6.4-8.2)
[2018-11-25 06:24] LABS: HEMATOCRIT 37.1 % (37.0-47.0)
[2018-11-25 06:29] LABS: ACT PARTIAL THROMBO TIME 23.4 SECONDS (20.8-31.5); INTERNATIONAL NORM RATIO 0.9 (2.0-3.5)
[2018-11-25 08:00] VITALS: BP 112/74
--- NOTE | 2018-11-25 08:45 | NUR ---
AWAKE, RESTING IN BED. RESPIRATIONS EASY. LUNGS CLEAR. PULSE OX 99% RA. ABD SOFT WITH NORMOACTIVE BOWEL SOUNDS. MEDCIATED WITH ZOFRAN IV PER PRN ORDER FOR COMPLAINTS OF NAUSEA PRIOR TO INITIATED CT PREP. OFFERED AND EDUCATED REGARDING TEDS, DECLINED. IV FLUIDS INFUSING PER ORDER. CALL LIGHT WITHIN REACH.
--- NOTE | 2018-11-25 09:45 | NUR ---
CT PREP COMPLETE
--- NOTE | 2018-11-25 10:00 | NUR ---
CT CANCELLED PER DR FONTAINE
--- NOTE | 2018-11-25 10:15 | NUR ---
dr saldana here to assess patient and discuss plan of care
--- NOTE | 2018-11-25 10:22 | NUR ---
MEDCIATED WITH NORCO PER PRN ORDER FOR COMPLAINTS OF ABD PAIN RATING AN 8. CALL LIGHT WITHIN REACH. WILL MONITOR
[2018-11-25 12:00] VITALS: BP 121/68
--- NOTE | 2018-11-25 12:00 | NUR ---
STATES RELIEF FROM EARLIER MEDS. CALL LIGHT WITHIN REACH. NO VOICED FURTHER COMPLAINTS
--- NOTE | 2018-11-25 13:00 | NUR ---
AMBULATED TO SHOWER.
--- NOTE | 2018-11-25 14:00 | NUR ---
RESTING IN BED WITH NO ACUTE DISTRESS NOTED. TOLERATING MEALS
[2018-11-25 16:00] VITALS: BP 119/72
--- NOTE | 2018-11-25 17:01 | NUR ---
REQUESTED AND RECEIVED NORCO PER PRN ORDER FOR COMPLAINTS OF ABD OAIN RATING A 9. CALL LIGHT WITHIN REACH. WILL MONITOR FOR EFFECTIVENESS
--- NOTE | 2018-11-25 18:00 | NUR ---
STATES RELIEF FROM EARLIER PAIN MEDS. CALL LIGHT WITHIN REACH. NO FURTHER VOICED COMPLAINTS
--- NOTE | 2018-11-25 19:45 | NUR ---
TYLENOL GIVEN PER ORDER FOR ABD PAIN RATED "7" PT. MORE BLOATED SINCE DRINKING PREP. ENCOURAGE PATIENT TO WALK TO HELP MOVE BOWELS. PT. UNDERSTOOD.
[2018-11-25 20:00] VITALS: BP 103/51
--- NOTE | 2018-11-25 22:00 | NUR ---
UP TO BATHROOM HAD FORMED STOOL
--- NOTE | 2018-11-25 23:12 | NUR ---
NORCO GIVEN PER ORDER FOR ABD PAIN RATED "7"
[2018-11-26] VITALS: BP 102/60
--- NOTE | 2018-11-26 00:12 | NUR ---
NORCO EFFECTIVE FOR ABD PAIN.
--- NOTE | 2018-11-26 03:06 | NUR ---
24 HR chart check completed.
[2018-11-26 06:20] LABS: BASO % 0.6 % (0.0-1.0); EOS # 0.1 10*3/uL (0.0-0.4); EOS % 1.1 % (1.0-4.0); HEMATOCRIT 36.7 % (37.0-47.0); HEMOGLOBIN 12.1 g/dl (12.0-16.0); LYMPH # 2.8 10*3/uL (1.3-4.4); LYMPH % 39.3 % (27.0-41.0); MEAN CELL VOLUME 96.3 fl (81.0-99.0); MEAN CORPUSCULAR HGB 31.8 pg (27.0-31.0); MEAN PLATELET VOLUME 9.4 fl (9.6-12.3); MONO # 0.5 10*3/uL (0.1-1.0); MONO % 7.3 % (3.0-9.0); NEUT # 3.7 10*3/uL (2.3-7.9); NEUT % 51.1 % (47.0-73.0); PLATELET COUNT AUTOMATED 234 10*3/uL (130-400); RED BLOOD COUNT 3.81 10*6/uL (4.10-5.10); RED CELL DISTRI WIDTH 12.6 % (0-14.5); WHITE BLOOD COUNT 7.2 10*3/uL (4.8-10.8)
--- NOTE | 2018-11-26 06:30 | NUR ---
NORCO GIVEN PER ORDER FOR ABD PAIN RATED "7".
[2018-11-26 06:57] LABS: ALBUMIN 2.6 gm/dl (3.1-4.5); ALKALINE PHOSPHATASE 59 U/L (45-117); BUN 11 mg/dl (7-24); CHLORIDE 108 mmol/L (98-107); CREATININE 0.54 mg/dL (0.55-1.02); POTASSIUM 3.8 mmol/L (3.5-5.1); SGOT/AST 13 IU/L (3-35); SGPT/ALT 15 U/L (12-78); SODIUM 141 mmol/L (136-145); TOTAL PROTEIN 5.6 gm/dL (6.4-8.2)
--- NOTE | 2018-11-26 07:25 | NUR ---
DIAN EFFECTIVE PER PT.
[2018-11-26 08:00] VITALS: BP 118/70
[2018-11-26] MEDS ORDERED: Carafate1 GM/10 ML PO (10:30)
[2018-11-26] MEDS ORDERED: PREDNISONE20 M1 PO (10:30)
[2018-11-26] MEDS ORDERED: HYDROCODONE-AC1 EAC1 PO (10:30)
--- NOTE | 2018-11-26 12:07 | NUR ---
Discharge instructions reviewed with patient/family. Patient receptive and verbalizes understanding. Follow-up care arranged. Written instructions given to patient/family. HEPLOCK REMOVED 2X2 APPLIED. AMBULATORY OFF THE FLOOR FOR DISCHARGE. PRESCRIPTIONS GIVEN TO PT. NATHANAEL SANTOS
[2019-01-16] MEDS ORDERED: MEDROL DOSEPAK4 MG PO (10:00)
[2019-01-16] MEDS ORDERED: LOMOTIL 2.5-0.1 EACH PO (10:01)
[2019-02-08] MEDS ORDERED: IMURAN50 MG PO (09:31)
[2019-02-08] MEDS ORDERED: CARAFATE1 G1 PO (09:32)
[2019-02-11] MEDS ORDERED: BALSALAZIDE DI750 MG PO (10:26)
[2019-02-11] MEDS ORDERED: IMURAN50 MG PO (10:26)
[2019-02-11] MEDS ORDERED: PREDNISONE10 MG PO (10:26)
== END 2018-11-26 12:08 | disposition home or self-care (01) | DRG 386 ==
LOC: ED 12:27 → EDHOLD 14:56 → 5E 16:06
PROVIDERS: Emergency Medicine; Internal Medicine; Internal Medicine Nephrology; ADMIT Internal Medicine
DX: K50.019 Crohn's disease of small intestine with unspecified complications (principal); E44.0 Moderate protein-calorie malnutrition; K57.30 Diverticulosis of large intestine without perforation or abscess without bleeding; N20.0 Calculus of kidney; L73.2 Hidradenitis suppurativa; K52.9 Noninfective gastroenteritis and colitis, unspecified; F17.210 Nicotine dependence, cigarettes, uncomplicated; Z90.49 Acquired absence of other specified parts of digestive tract; Z91.09 Other allergy status, other than to drugs and biological substances; Z88.2 Allergy status to sulfonamides; Z71.6 Tobacco abuse counseling; Z82.0 Family history of epilepsy and other diseases of the nervous system; Z68.23 Body mass index [BMI] 23.0-23.9, adult

== ENCOUNTER 2018-12-06 10:43 | Emergency (ER) | payer OTHER ==
[~2018-12-06] VITALS: Ht 157.4 cm; Wt 59.0 kg
[~2018-12-06 10:43] MED LIST changes: +HYDROCODONE-AC1 EAC1 PO
[2018-12-06 11:15] LABS: BASO # 0.1 10*3/uL (0.0-0.1); BASO % 0.5 % (0.0-1.0); EOS # 0.1 10*3/uL (0.0-0.4); EOS % 0.9 % (1.0-4.0); HEMOGLOBIN 14.5 g/dl (12.0-16.0); LYMPH # 3.3 10*3/uL (1.3-4.4); LYMPH % 32.5 % (27.0-41.0); MEAN CELL VOLUME 94.5 fl (81.0-99.0); MEAN CORPUSCULAR HGB 31.9 pg (27.0-31.0); MEAN CORPUSCULAR HGB CONC 33.7 g/dl (33.0-37.0); MEAN PLATELET VOLUME 8.7 fl (9.6-12.3); MONO # 0.5 10*3/uL (0.1-1.0); MONO % 4.9 % (3.0-9.0); NEUT # 6.1 10*3/uL (2.3-7.9); NEUT % 60.6 % (47.0-73.0); PLATELET COUNT AUTOMATED 328 10*3/uL (130-400); RED BLOOD COUNT 4.55 10*6/uL (4.10-5.10); RED CELL DISTRI WIDTH 12.8 % (0-14.5)
[2018-12-06 11:36] LABS: ALBUMIN 2.8 gm/dl (3.1-4.5); ALKALINE PHOSPHATASE 70 U/L (45-117); BUN 9 mg/dl (7-24); CHLORIDE 106 mmol/L (98-107); CREATININE 0.74 mg/dL (0.55-1.02); POTASSIUM 3.4 mmol/L (3.5-5.1); SGOT/AST 9 IU/L (3-35); SGPT/ALT 16 U/L (12-78); SODIUM 141 mmol/L (136-145); TOTAL PROTEIN 6.4 gm/dL (6.4-8.2)
[2018-12-06 11:50] LABS: BILIRUBIN NEGATIVE (NEGATIVE); BLOOD TRACE-INTACT (NEGATIVE); CLARITY SL CLOUDY (CLEAR); COLOR YELLOW (YELLOW); GLUCOSE NEGATIVE (NEGATIVE); KETONE NEGATIVE (NEGATIVE); LEUKO ESTERASE NEGATIVE (NEGATIVE); NITRITE NEGATIVE (NEGATIVE); PH 5.5 (5.0-9.0); SPECIFIC GRAVITY >= 1.030 (1.005-1.030); UROBILINOGEN 0.2 E.U./dl (0.2-1.0)
[2018-12-06] MEDS ORDERED: PREPARATION H26 GM T (14:06)
[2018-12-06] MEDS ORDERED: LOMOTIL 2.5-0.1 EACH PO (14:08)
[2019-01-16] MEDS ORDERED: MEDROL DOSEPAK4 MG PO (10:00)
[2019-01-16] MEDS ORDERED: LOMOTIL 2.5-0.1 EACH PO (10:01)
[2019-02-08] MEDS ORDERED: IMURAN50 MG PO (09:31)
[2019-02-08] MEDS ORDERED: CARAFATE1 G1 PO (09:32)
[2019-02-11] MEDS ORDERED: PREDNISONE10 MG PO (10:26)
[2019-02-11] MEDS ORDERED: BALSALAZIDE DI750 MG PO (10:26)
[2019-02-11] MEDS ORDERED: IMURAN50 MG PO (10:26)
== END 2018-12-06 14:17 | disposition home or self-care (01) ==
LOC: ED 10:43
PROVIDERS: Emergency Medicine
DX: R10.9 Unspecified abdominal pain (principal); R19.7 Diarrhea, unspecified; F12.90 Cannabis use, unspecified, uncomplicated; F17.210 Nicotine dependence, cigarettes, uncomplicated; K21.9 Gastro-esophageal reflux disease without esophagitis; Z90.89 Acquired absence of other organs; Z90.710 Acquired absence of both cervix and uterus; Z90.49 Acquired absence of other specified parts of digestive tract; Z98.890 Other specified postprocedural states; Z88.2 Allergy status to sulfonamides; Z79.899 Other long term (current) drug therapy

== ENCOUNTER 2018-12-08 08:25 | Inpatient (IN) | payer OTHER ==
[~2018-12-08] VITALS: Ht 157.4 cm; Wt 59.4 kg
[2018-12-08] VITALS (7 sets, daily range): BP systolic 100–124; BP diastolic 65–79
--- NOTE | ~2018-12-08 | CON ---
[place], [place] REPORT OF CONSULTATION NAME: BALDEV WALLS UNIT #: [id number] ROOM: 531 DOCTOR: BRANDIN REYES MD BIRTHDATE: [birth year] DOS: 12/08/2018 HISTORY OF PRESENT ILLNESS: The patient is a 38-year-old patient who presented with a chief complaint of abdominal pain, diarrhea, nausea, vomiting, history of Crohn's disease, on Humira. She presented to the Emergency Room with abdominal pain. PAST MEDICAL HISTORY: Associated nephrolithiasis, irritable bowel syndrome, as well as Crohn's disease, diverticulosis, on Crohn's therapy. PAST SURGICAL HISTORY: Appendectomy, cholecystectomy, bowel resection, renal stent, T and A, hysterectomy. SOCIAL HISTORY: Smoker of marijuana and carbonated soda consumer. ALLERGIES: SULFA. FAMILY HISTORY: Noncontributory. MEDICATIONS: List reviewed. REVIEW OF SYSTEMS: HEENT: Denies double vision or blurred vision. RESPIRATORY: Denies shortness of breath. CARDIOVASCULAR: Denies acute chest pain. DIGESTIVE SYSTEM: Nausea, vomiting, epigastric pain, diarrhea. PHYSICAL EXAMINATION: VITAL SIGNS: Stable. HEENT: Within normal limits. NECK: Supple. No thyromegaly. No cervical lymphadenopathy. CHEST: Symmetric anatomy, equal expansion. No wheeze. No rhonchi. HEART: Normal sinus rhythm. No gallop. No murmur. ABDOMEN: Soft. No hepato-organomegaly. Bowel sounds present. EXTREMITIES: There is no cyanosis. No pedal edema. NEUROLOGIC: Alert and oriented to time, place and person. LABORATORY DATA: Reviewed. Records reviewed. White blood cells of 11, otherwise differential within normal limits. Comprehensive metabolic panel, electrolyte balance. Bilirubin 0.1. Liver function test was normal. Urinalysis was appreciated. Lactic acid baseline 1.6. IMPRESSION: Crohn's disease, diarrhea, and possible unresponsiveness to even Humira therapy. PLAN AND DISCUSSION: We are going to proceed with colonoscopic and endoscopic evaluation for the patient's history of persistent epigastric abdominal pain and Crohn's disease [place], [place] REPORT OF CONSULTATION NAME: BALDEV WALLS UNIT #: [id number] ROOM: 531 DOCTOR: BRANDIN REYES MDDATE: [birth year] BRANDIN REYES MD CM:CONSTR:REPORT OF CONSULTATION 1507 12/09/18 0704 interface
--- NOTE | ~2018-12-08 | O ---
[place], [place] OPERATIVE NOTE NAME: BALDEV WALLS UNIT #: [id number] ROOM: 531 DOCTOR: ERIC HODGEBRANDIN BIRTHDATE: [birth year] DOS: 12/08/2018 IDENTIFICATION: The patient is a 38-year-old patient who presented with a chief complaint of epigastric abdominal pain, undergoing investigation for nausea, vomiting, diarrhea, Crohn's disease, on Humira therapy. PROCEDURE: Today's procedure part of investigation is panendoscopy and colonoscopy. PREMEDICATION: Propofol. SCOPE: Olympus forward-viewing gastroscope Q10 video. REPORT: After putting the patient in left lateral position and application of lubricant to the scope, the scope was introduced, thereafter under direct visualization advanced through the length of esophagus without difficulty. Esophagus, cervicothoracic distally carefully examined. Gastric pouch was entered, gastritis noted. Antral biopsy was obtained, duodenal patency, second and third part within normal limits. The patient was extubated, tolerated the procedure well. IMPRESSION: Gastritis status post biopsy. PLAN AND DISCUSSION: We are going to proceed with colonoscopy. IDENTIFICATION: The patient has presented with a chief complaint of epigastric abdominal pain, diarrhea, Crohn's, cramps, on Humira. PROCEDURE #2: Today's procedure part of investigation is colonoscopy and terminal ileoscopy and biopsy. PREMEDICATION: Propofol. SCOPE: Olympus forward-viewing colonoscope 10L video. REPORT: After putting the patient in left lateral position and application of lubricant to the scope, the scope was introduced, thereafter under direct visualization advanced through the length of colon without difficulty. Colon mucosa and vascularity carefully examined. Terminal ileum was entered. Diffuse ulceration of the terminal ileum was photographed. Multiple biopsies obtained. [place] Crohn's disease in the terminal ileum was identified. The patient was extubated after biopsy, tolerated the procedure well. IMPRESSION: Colonoscopy and status post terminal ileoscopy and biopsies, advanced Crohn's disease in the terminal ileum has been expressed. PLAN AND DISCUSSION: Continuation with Humira and supportive management. I am going to start her on a trial of metronidazole as well IV. Thank you very much indeed. [place], [place] OPERATIVE NOTE NAME: BALDEV WALLS UNIT #: [id number] ROOM: 531 DOCTOR: BRANDIN REYES MD BIRTHDATE: [birth year] BRANDIN REYES MD CM:OPRECORD:OPERATIVE NOTE 1507 [id number] BRANDIN REYES MD 12/09/18 0714 interface
[~2018-12-08 08:25] MED LIST changes: +LOMOTIL 2.5-0.1 EACH PO; +PREPARATION H26 GM T
--- NOTE | 2018-12-08 10:30 | NUR ---
Time: 1029 A 38 year old FEMALE admitted to under services of SAGAR DEVINE DO. Pt. arrived via ambulatory from ADMITTING Chief complaint: N/V/D. ANDREW FRAIRE
[2018-12-08 11:06] LABS: BASO # 0.1 10*3/uL (0.0-0.1); BASO % 0.5 % (0.0-1.0); EOS # 0.1 10*3/uL (0.0-0.4); EOS % 0.8 % (1.0-4.0); HEMATOCRIT 42.1 % (37.0-47.0); LYMPH # 3.4 10*3/uL (1.3-4.4); MEAN CELL VOLUME 95.2 fl (81.0-99.0); MEAN CORPUSCULAR HGB 31.7 pg (27.0-31.0); MEAN CORPUSCULAR HGB CONC 33.3 g/dl (33.0-37.0); MONO # 0.6 10*3/uL (0.1-1.0); MONO % 5.4 % (3.0-9.0); NEUT # 6.9 10*3/uL (2.3-7.9); NEUT % 61.8 % (47.0-73.0); PLATELET COUNT AUTOMATED 313 10*3/uL (130-400); RED BLOOD COUNT 4.42 10*6/uL (4.10-5.10); RED CELL DISTRI WIDTH 12.8 % (0-14.5); WHITE BLOOD COUNT 11.1 10*3/uL (4.8-10.8)
[2018-12-08 11:31] LABS: ALBUMIN 2.8 gm/dl (3.1-4.5); ALKALINE PHOSPHATASE 66 U/L (45-117); BUN 14 mg/dl (7-24); CHLORIDE 107 mmol/L (98-107); CREATININE 0.67 mg/dL (0.55-1.02); SGOT/AST 17 IU/L (3-35); SGPT/ALT 17 U/L (12-78); SODIUM 141 mmol/L (136-145); TOTAL PROTEIN 6.3 gm/dL (6.4-8.2)
--- NOTE | 2018-12-08 13:28 | NUR ---
2 3/4 L TAP WATER ENEMA & FLEETS UNTIL CLEAR. PT UNABLE TO TOLERATE ANY MORE AT THIS TIME. NOTIFIED OR. PT TRANSFERRED VIA BED TO OR FOR COLO.
--- NOTE | 2018-12-08 18:16 | NUR ---
NORCO 5/325 MG GIVEN FOR C/O PAIN TO ABD,04/14.
--- NOTE | 2018-12-08 22:00 | NUR ---
PATIENT'S HOME MED REQ UP TO DATE. DENIES COMPLAINTS OF PAIN OR DISCOMFORT AT THIS TIME. RESPIRATIONS REGULAR AND NON-LABORED. WILL CONTINUE TO MONITOR. CALL LIGHT IN REACH.
[2018-12-09] VITALS: BP 93/60
[2018-12-09 06:23] LABS: BASO # 0.1 10*3/uL (0.0-0.1); BASO % 0.7 % (0.0-1.0); EOS # 0.2 10*3/uL (0.0-0.4); EOS % 1.8 % (1.0-4.0); HEMATOCRIT 42.2 % (37.0-47.0); HEMOGLOBIN 13.5 g/dl (12.0-16.0); LYMPH # 3.6 10*3/uL (1.3-4.4); LYMPH % 39.8 % (27.0-41.0); MEAN CELL VOLUME 97.9 fl (81.0-99.0); MEAN CORPUSCULAR HGB 31.3 pg (27.0-31.0); MEAN PLATELET VOLUME 9.4 fl (9.6-12.3); MONO # 0.6 10*3/uL (0.1-1.0); MONO % 6.7 % (3.0-9.0); NEUT # 4.5 10*3/uL (2.3-7.9); NEUT % 50.3 % (47.0-73.0); PLATELET COUNT AUTOMATED 277 10*3/uL (130-400); RED BLOOD COUNT 4.31 10*6/uL (4.10-5.10); RED CELL DISTRI WIDTH 13.1 % (0-14.5)
[2018-12-09 06:52] LABS: ALBUMIN 2.8 gm/dl (3.1-4.5); ALKALINE PHOSPHATASE 59 U/L (45-117); BUN 10 mg/dl (7-24); CHLORIDE 109 mmol/L (98-107); PHOSPHOROUS 3.4 mg/dL (2.5-4.9); POTASSIUM 4.1 mmol/L (3.5-5.1); SGOT/AST 14 IU/L (3-35); SGPT/ALT 16 U/L (12-78); SODIUM 142 mmol/L (136-145); TOTAL PROTEIN 5.7 gm/dL (6.4-8.2)
[2018-12-09 08:00] VITALS: BP 102/60
[2018-12-09 12:00] VITALS: BP 115/85
[2018-12-09 16:00] VITALS: BP 115/85
[2018-12-09 20:00] VITALS: BP 112/66
[2018-12-10] VITALS: BP 104/71
[2018-12-10 08:00] VITALS: BP 105/63
[2018-12-10 12:00] VITALS: BP 110/73
--- NOTE | 2018-12-10 12:30 | NUR ---
MEDICATED WITH PRN NORCO PER ORDER AND REQUEST.
--- NOTE | 2018-12-10 15:11 | NUR ---
Discharge instructions reviewed with patient/family. Patient receptive and verbalizes understanding. Follow-up care arranged. Written instructions given to patient/family. MILLY JIANG
[2019-01-16] MEDS ORDERED: MEDROL DOSEPAK4 MG PO (10:00)
[2019-01-16] MEDS ORDERED: LOMOTIL 2.5-0.1 EACH PO (10:01)
[2019-02-08] MEDS ORDERED: IMURAN50 MG PO (09:31)
[2019-02-08] MEDS ORDERED: CARAFATE1 G1 PO (09:32)
[2019-02-11] MEDS ORDERED: PREDNISONE10 MG PO (10:26)
[2019-02-11] MEDS ORDERED: IMURAN50 MG PO (10:26)
[2019-02-11] MEDS ORDERED: BALSALAZIDE DI750 MG PO (10:26)
== END 2018-12-10 15:11 | disposition home or self-care (01) | DRG 392 ==
LOC: RESCLI 08:25 → 5E 09:43
PROVIDERS: Registered Nurse; ADMIT Emergency Medicine
PROC: 0DBB8ZX Excision of Ileum, Via Natural or Artificial Opening Endoscopic, Diagnostic (ICD-10-PCS; principal; 2018-12-08)
PROC: 0DB78ZX Excision of Stomach, Pylorus, Via Natural or Artificial Opening Endoscopic, Diagnostic (ICD-10-PCS; principal; 2018-12-08)
DX: K29.70 Gastritis, unspecified, without bleeding (principal); E44.0 Moderate protein-calorie malnutrition; K63.3 Ulcer of intestine; K57.90 Diverticulosis of intestine, part unspecified, without perforation or abscess without bleeding; L73.2 Hidradenitis suppurativa; E83.51 Hypocalcemia; F17.210 Nicotine dependence, cigarettes, uncomplicated; K58.0 Irritable bowel syndrome with diarrhea; Z87.442 Personal history of urinary calculi; Z90.49 Acquired absence of other specified parts of digestive tract; Z90.710 Acquired absence of both cervix and uterus; Z88.2 Allergy status to sulfonamides; Z79.899 Other long term (current) drug therapy; Z71.6 Tobacco abuse counseling; Z68.23 Body mass index [BMI] 23.0-23.9, adult

== ENCOUNTER → 2018-12-14 | Outpatient (CLI) | payer OTHER ==
[~2018-12-14] MED LIST changes: +CARAFATE1 G1 PO; +DICYCLOMINE HYD10 MG PO; +IMURAN50 MG PO; +MEDROL DOSEPAK4 MG PO
== END | disposition home or self-care (01) ==
LOC: RESCLI 02:59
DX: Z09 Encounter for follow-up examination after completed treatment for conditions other than malignant neoplasm (principal); K50.00 Crohn's disease of small intestine without complications; E43 Unspecified severe protein-calorie malnutrition; K50.918 Crohn's disease, unspecified, with other complication; E55.9 Vitamin D deficiency, unspecified; R19.7 Diarrhea, unspecified; K26.9 Duodenal ulcer, unspecified as acute or chronic, without hemorrhage or perforation; F17.200 Nicotine dependence, unspecified, uncomplicated; Z71.6 Tobacco abuse counseling; Z79.899 Other long term (current) drug therapy; Z88.2 Allergy status to sulfonamides; Z88.8 Allergy status to other drugs, medicaments and biological substances

== ENCOUNTER 2018-12-21 16:17 | Emergency (ER) | payer OTHER ==
[~2018-12-21] VITALS: Ht 157.4 cm; Wt 59.0 kg
[~2018-12-21 16:17] MED LIST changes: -CARAFATE1 G1 PO; -DICYCLOMINE HYD10 MG PO; -IMURAN50 MG PO; -MEDROL DOSEPAK4 MG PO
[2018-12-21 16:50] LABS: BASO # 0.1 10*3/uL (0.0-0.1); BASO % 0.8 % (0.0-1.0); EOS # 0.1 10*3/uL (0.0-0.4); EOS % 1.6 % (1.0-4.0); HEMOGLOBIN 13.9 g/dl (12.0-16.0); LYMPH # 3.1 10*3/uL (1.3-4.4); LYMPH % 40.7 % (27.0-41.0); MEAN CELL VOLUME 94.7 fl (81.0-99.0); MEAN CORPUSCULAR HGB 32.1 pg (27.0-31.0); MEAN CORPUSCULAR HGB CONC 33.9 g/dl (33.0-37.0); MEAN PLATELET VOLUME 9.4 fl (9.6-12.3); MONO # 0.5 10*3/uL (0.1-1.0); MONO % 6.9 % (3.0-9.0); NEUT # 3.8 10*3/uL (2.3-7.9); NEUT % 49.7 % (47.0-73.0); PLATELET COUNT AUTOMATED 304 10*3/uL (130-400); RED BLOOD COUNT 4.33 10*6/uL (4.10-5.10); RED CELL DISTRI WIDTH 12.6 % (0-14.5); WHITE BLOOD COUNT 7.7 10*3/uL (4.8-10.8)
[2018-12-21 17:00] LABS: ACT PARTIAL THROMBO TIME 25.1 SECONDS (20.8-31.5); INTERNATIONAL NORM RATIO 0.9 (2.0-3.5)
[2018-12-21 17:03] LABS: ALBUMIN 2.9 gm/dl (3.1-4.5); ALKALINE PHOSPHATASE 76 U/L (45-117); BUN 9 mg/dl (7-24); CHLORIDE 109 mmol/L (98-107); CREATININE 0.78 mg/dL (0.55-1.02); LIPASE 92 U/L (73-393); POTASSIUM 3.5 mmol/L (3.5-5.1); SGOT/AST 11 IU/L (3-35); SGPT/ALT 19 U/L (12-78); SODIUM 141 mmol/L (136-145); TOTAL PROTEIN 6.3 gm/dL (6.4-8.2)
[2018-12-21 17:14] LABS: BILIRUBIN NEGATIVE (NEGATIVE); BLOOD TRACE-INTACT (NEGATIVE); CLARITY CLEAR (CLEAR); COLOR YELLOW (YELLOW); GLUCOSE NEGATIVE (NEGATIVE); KETONE NEGATIVE (NEGATIVE); LEUKO ESTERASE NEGATIVE (NEGATIVE); NITRITE NEGATIVE (NEGATIVE); UROBILINOGEN 0.2 E.U./dl (0.2-1.0)
[2018-12-21 17:20] LABS: BACTERIA TRACE; RBC 0-2 rbc/hpf (0-2); WBC 0-2 wbc/hpf (0-5)
[2018-12-21] MEDS ORDERED: ZOFRAN4 MG PO (17:34)
[2019-01-16] MEDS ORDERED: MEDROL DOSEPAK4 MG PO (10:00)
[2019-01-16] MEDS ORDERED: LOMOTIL 2.5-0.1 EACH PO (10:01)
[2019-02-08] MEDS ORDERED: IMURAN50 MG PO (09:31)
[2019-02-08] MEDS ORDERED: CARAFATE1 G1 PO (09:32)
[2019-02-11] MEDS ORDERED: PREDNISONE10 MG PO (10:26)
[2019-02-11] MEDS ORDERED: BALSALAZIDE DI750 MG PO (10:26)
[2019-02-11] MEDS ORDERED: IMURAN50 MG PO (10:26)
== END 2018-12-21 18:02 | disposition home or self-care (01) ==
LOC: ED 16:17
PROVIDERS: Emergency Medicine
DX: K27.9 Peptic ulcer, site unspecified, unspecified as acute or chronic, without hemorrhage or perforation (principal); K21.9 Gastro-esophageal reflux disease without esophagitis; R19.7 Diarrhea, unspecified; R11.0 Nausea; R10.84 Generalized abdominal pain; F12.90 Cannabis use, unspecified, uncomplicated; F17.210 Nicotine dependence, cigarettes, uncomplicated; Z90.49 Acquired absence of other specified parts of digestive tract; Z90.710 Acquired absence of both cervix and uterus; Z98.890 Other specified postprocedural states; Z88.2 Allergy status to sulfonamides; Z79.899 Other long term (current) drug therapy

== ENCOUNTER → 2019-01-23 | Outpatient (CLI) | payer OTHER ==
[~2019-01-23] MED LIST changes: +CARAFATE1 G1 PO; +DICYCLOMINE HYD10 MG PO; +IMURAN50 MG PO; +MEDROL DOSEPAK4 MG PO
== END | disposition home or self-care (01) ==
LOC: RESCLI 01:32
DX: K50.00 Crohn's disease of small intestine without complications (principal); R19.7 Diarrhea, unspecified; E55.9 Vitamin D deficiency, unspecified; F17.200 Nicotine dependence, unspecified, uncomplicated; Z79.899 Other long term (current) drug therapy; Z88.2 Allergy status to sulfonamides; Z88.8 Allergy status to other drugs, medicaments and biological substances

== ENCOUNTER → 2019-03-01 | Outpatient (CLI) | payer OTHER | END | disposition home or self-care (01) | LOC: RESCLI 01:15 | DX: K50.919 Crohn's disease, unspecified, with unspecified complications (principal); J42 Unspecified chronic bronchitis; E55.9 Vitamin D deficiency, unspecified; E53.8 Deficiency of other specified B group vitamins; K26.9 Duodenal ulcer, unspecified as acute or chronic, without hemorrhage or perforation; Z71.6 Tobacco abuse counseling; Z72.0 Tobacco use; Z79.899 Other long term (current) drug therapy ==

== ENCOUNTER 2019-04-09 14:46 | Emergency (ER) | payer OTHER ==
[~2019-04-09] VITALS: Ht 157.4 cm; Wt 59.0 kg
[~2019-04-09 14:46] MED LIST changes: -DICYCLOMINE HYD10 MG PO
[2019-04-09 15:10] LABS: BASO # 0.1 10*3/uL (0.0-0.1); BASO % 0.8 % (0.0-1.0); EOS # 0.1 10*3/uL (0.0-0.4); EOS % 1.3 % (1.0-4.0); HEMOGLOBIN 14.4 g/dl (12.0-16.0); LYMPH # 2.4 10*3/uL (1.3-4.4); LYMPH % 33.6 % (27.0-41.0); MEAN CELL VOLUME 93.5 fl (81.0-99.0); MEAN CORPUSCULAR HGB 31.3 pg (27.0-31.0); MEAN CORPUSCULAR HGB CONC 33.5 g/dl (33.0-37.0); MEAN PLATELET VOLUME 9.6 fl (9.6-12.3); MONO # 0.4 10*3/uL (0.1-1.0); MONO % 5.3 % (3.0-9.0); NEUT # 4.2 10*3/uL (2.3-7.9); NEUT % 58.7 % (47.0-73.0); PLATELET COUNT AUTOMATED 323 10*3/uL (130-400); RED CELL DISTRI WIDTH 12.2 % (0-14.5); WHITE BLOOD COUNT 7.2 10*3/uL (4.8-10.8)
[2019-04-09 15:28] LABS: ALBUMIN 3.1 gm/dl (3.1-4.5); BUN 8 mg/dl (7-24); CHLORIDE 107 mmol/L (98-107); CREATININE 0.75 mg/dL (0.55-1.02); LIPASE 98 U/L (73-393); POTASSIUM 3.5 mmol/L (3.5-5.1); SGOT/AST 13 IU/L (3-35); SGPT/ALT 11 U/L (12-78); SODIUM 138 mmol/L (136-145); TOTAL PROTEIN 6.6 gm/dL (6.4-8.2)
[2019-04-09 15:29] LABS: ALKALINE PHOSPHATASE 92 U/L (45-117)
[2019-04-09 16:09] LABS: BILIRUBIN NEGATIVE (NEGATIVE); BLOOD NEGATIVE (NEGATIVE); CLARITY CLEAR (CLEAR); COLOR YELLOW (YELLOW); GLUCOSE NEGATIVE (NEGATIVE); KETONE NEGATIVE (NEGATIVE); LEUKO ESTERASE NEGATIVE (NEGATIVE); NITRITE NEGATIVE (NEGATIVE); UROBILINOGEN 0.2 E.U./dl (0.2-1.0)
[2019-04-09 16:18] LABS: BACTERIA 1+
[2019-04-09] MEDS ORDERED: DICYCLOMINE HYD10 MG PO (17:02)
== END 2019-04-09 17:12 | disposition home or self-care (01) ==
LOC: ED 14:46
PROVIDERS: Nurse Practitioner Family
DX: R10.32 Left lower quadrant pain (principal); R19.7 Diarrhea, unspecified; Z88.2 Allergy status to sulfonamides; Z79.899 Other long term (current) drug therapy; Z90.49 Acquired absence of other specified parts of digestive tract; Z90.710 Acquired absence of both cervix and uterus; F17.200 Nicotine dependence, unspecified, uncomplicated

== ENCOUNTER → 2019-04-16 | Outpatient (CLI) | payer OTHER ==
[~2019-04-16] MED LIST changes: +DICYCLOMINE HYD10 MG PO
[2019-04-17 06:07] LABS: HEPATITIS B SURFACE AB 006395 Non Reactive (.); HEPATITIS B SURFACE AG Negative (Negative)
== END | disposition home or self-care (01) ==
LOC: LAB 15:18
DX: R10.32 Left lower quadrant pain (principal); R93.89 Abnormal findings on diagnostic imaging of other specified body structures; R63.4 Abnormal weight loss; R19.7 Diarrhea, unspecified

== ENCOUNTER → 2019-05-22 | Outpatient (CLI) | payer OTHER ==
[2019-05-22 12:15] LABS: BASO # 0.1 10*3/uL (0.0-0.1); BASO % 0.8 % (0.0-1.0); EOS # 0.2 10*3/uL (0.0-0.4); EOS % 1.8 % (1.0-4.0); HEMATOCRIT 43.4 % (37.0-47.0); HEMOGLOBIN 14.5 g/dl (12.0-16.0); LYMPH # 3.7 10*3/uL (1.3-4.4); LYMPH % 43.4 % (27.0-41.0); MEAN CELL VOLUME 92.7 fl (81.0-99.0); MEAN CORPUSCULAR HGB CONC 33.4 g/dl (33.0-37.0); MEAN PLATELET VOLUME 9.3 fl (9.6-12.3); MONO # 0.5 10*3/uL (0.1-1.0); MONO % 5.8 % (3.0-9.0); NEUT # 4.1 10*3/uL (2.3-7.9); PLATELET COUNT AUTOMATED 349 10*3/uL (130-400); RED BLOOD COUNT 4.68 10*6/uL (4.10-5.10); RED CELL DISTRI WIDTH 12.3 % (0-14.5); WHITE BLOOD COUNT 8.5 10*3/uL (4.8-10.8)
[2019-05-22 12:49] LABS: ALBUMIN 3.2 gm/dl (3.1-4.5); ALKALINE PHOSPHATASE 98 U/L (45-117); BUN 9 mg/dl (7-24); CHLORIDE 106 mmol/L (98-107); CREATININE 0.65 mg/dL (0.55-1.02); POTASSIUM 3.6 mmol/L (3.5-5.1); SGOT/AST 11 IU/L (3-35); SGPT/ALT 12 U/L (12-78); SODIUM 137 mmol/L (136-145); TOTAL PROTEIN 6.8 gm/dL (6.4-8.2)
[2019-05-23 08:05] LABS: HEP B CORE AB TOTAL 006718 Negative (Negative); HEPATITIS B SURFACE AB 006395 Non Reactive (.)
[2019-05-29 02:05] LABS: TPMT GENOTYPE *1/*1 (.)
[2019-05-29 04:02] LABS: TPMT ACTIVITY 23.1 (.)
== END | disposition home or self-care (01) ==
LOC: LAB 11:15
PROVIDERS: Nurse Practitioner Family
DX: K50.018 Crohn's disease of small intestine with other complication (principal); R19.7 Diarrhea, unspecified

== ENCOUNTER 2019-09-26 09:50 | Inpatient (IN) | payer OTHER ==
[~2019-09-26] VITALS: Ht 157.5 cm; Wt 62.2 kg
--- NOTE | 2019-09-26 00:30 | NUR ---
PRN TORADOL EFFECTIVE, PT SLEEPING
[2019-09-26 09:53] VITALS: BP 112/68
[2019-09-26 11:20] LABS: BASO # 0.1 10*3/uL (0.0-0.1); BASO % 0.9 % (0.0-1.0); EOS # 0.1 10*3/uL (0.0-0.4); EOS % 1.7 % (1.0-4.0); HEMATOCRIT 46.8 % (37.0-47.0); HEMOGLOBIN 15.7 g/dl (12.0-16.0); LYMPH # 2.7 10*3/uL (1.3-4.4); LYMPH % 39.5 % (27.0-41.0); MEAN CELL VOLUME 99.6 fl (81.0-99.0); MEAN CORPUSCULAR HGB 33.4 pg (27.0-31.0); MEAN CORPUSCULAR HGB CONC 33.5 g/dl (33.0-37.0); MEAN PLATELET VOLUME 9.3 fl (9.6-12.3); MONO # 0.5 10*3/uL (0.1-1.0); MONO % 7.5 % (3.0-9.0); NEUT # 3.5 10*3/uL (2.3-7.9); NEUT % 50.1 % (47.0-73.0); PLATELET COUNT AUTOMATED 293 10*3/uL (130-400); WHITE BLOOD COUNT 6.9 10*3/uL (4.8-10.8)
[2019-09-26 11:37] LABS: ALBUMIN 3.7 gm/dl (3.1-4.5); ALKALINE PHOSPHATASE 74 U/L (45-117); BUN 10 mg/dl (7-24); CHLORIDE 108 mmol/L (98-107); CREATININE 0.78 mg/dL (0.55-1.02); LIPASE 120 U/L (73-393); POTASSIUM 4.1 mmol/L (3.5-5.1); SGOT/AST 13 IU/L (3-35); SGPT/ALT 20 U/L (12-78); SODIUM 138 mmol/L (136-145); TOTAL PROTEIN 7.2 gm/dL (6.4-8.2)
[2019-09-26 11:51] LABS: BILIRUBIN NEGATIVE (NEGATIVE); BLOOD 1+ (NEGATIVE); CLARITY CLOUDY (CLEAR); COLOR YELLOW (YELLOW); GLUCOSE NEGATIVE (NEGATIVE); KETONE NEGATIVE (NEGATIVE); SPECIFIC GRAVITY 1.025 (1.005-1.030)
[2019-09-26 11:52] LABS: LEUKO ESTERASE NEGATIVE (NEGATIVE); NITRITE NEGATIVE (NEGATIVE); UROBILINOGEN 0.2 E.U./dl (0.2-1.0)
[2019-09-26 11:56] LABS: BACTERIA TRACE; MUCOUS TRACE
[2019-09-26 12:06] VITALS: BP 92/53
--- NOTE | 2019-09-26 13:20 | NUR ---
THE PT IS RESTING ON THE BED. CALL LIGHT IS ON THE BED BESIDE THE PATIENT.
[2019-09-26 14:50] VITALS: BP 101/65
--- NOTE | 2019-09-26 14:50 | NUR ---
Time: 1449 A 39 year old FEMALE admitted to 5E under services of FRANCESCO ESQUEDA DO. Pt. arrived via wheel chair from ER. Chief complaint: FACIAL CELLULITIS, EXAC OF CHRONS. NATHANAEL SANTOS
[2019-09-26] MEDS ORDERED: PRILOSEC20 M1 PO (15:28)
[2019-09-26] MEDS ORDERED: PREDNISONE20 M1 PO (15:28)
[2019-09-26] MEDS ORDERED: REMICADE100 MG IM (15:29)
--- NOTE | 2019-09-26 15:33 | NUR ---
CALLED DR. BLANCO AWARE MEDICATIONS NEED ORDERED.
[2019-09-26 16:00] VITALS: BP 101/65
--- NOTE | 2019-09-26 17:02 | NUR ---
PT C/O HEADACHE AND RIGHT EAR PAIN. STATE TYLENOL WON'T HELP. MADE DR. BLANCO AWARE PT REQUESTING SOMETHING FOR PAIN. THEY WILL LOOK INTO IT. CALL LIGHT IN [facility].
--- NOTE | 2019-09-26 17:43 | NUR ---
PT GIVEN 1 TIME DOSE OF IV TORADOL PER PRN ORDER FOR C/O EAR PAIN. RATES PAIN /. EAR RED AND SWOLLEN. WILL MONITOR EFFECTIVENESS. IV ZOSYN INITATED AT THIS TIME PER SCHEDULED. CALL LIGHT WITHIN REACH.
[2019-09-26 20:00] VITALS: BP 90/60
--- NOTE | 2019-09-26 23:40 | NUR ---
SPOKE WITH DR. POSADA, PATIENT IS COMPLAINING OF EAR PAIN AND RECIEVED TORADOL EARLIER THAT WAS EFFECTIVE. ORDER RECIEVED FOR ONE TIME DOSE OF TORADOL 15MG.
[2019-09-27] VITALS: BP 112/66
[2019-09-27 06:24] LABS: BASO % 0.3 % (0.0-1.0); EOS # 0.1 10*3/uL (0.0-0.4); EOS % 1.9 % (1.0-4.0); HEMATOCRIT 41.8 % (37.0-47.0); HEMOGLOBIN 14.1 g/dl (12.0-16.0); LYMPH # 1.2 10*3/uL (1.3-4.4); LYMPH % 17.9 % (27.0-41.0); MEAN CORPUSCULAR HGB 32.7 pg (27.0-31.0); MEAN CORPUSCULAR HGB CONC 33.7 g/dl (33.0-37.0); MEAN PLATELET VOLUME 9.8 fl (9.6-12.3); MONO # 0.1 10*3/uL (0.1-1.0); MONO % 1.5 % (3.0-9.0); NEUT # 5.3 10*3/uL (2.3-7.9); NEUT % 78.1 % (47.0-73.0); PLATELET COUNT AUTOMATED 249 10*3/uL (130-400); RED BLOOD COUNT 4.31 10*6/uL (4.10-5.10); RED CELL DISTRI WIDTH 12.7 % (0-14.5); WHITE BLOOD COUNT 6.8 10*3/uL (4.8-10.8)
[2019-09-27 06:37] LABS: BUN 10 mg/dl (7-24); CHLORIDE 112 mmol/L (98-107); CREATININE 0.69 mg/dL (0.55-1.02); POTASSIUM 4.5 mmol/L (3.5-5.1); SODIUM 140 mmol/L (136-145)
[2019-09-27 08:00] VITALS: BP 124/74
--- NOTE | 2019-09-27 08:45 | NUR ---
PT SITTING UP IN BED. RESP-EASY AND REGULAR. C/O RIGHT EAR PAIN/HEADACHE AND ABD PAIN, RATES PAIN 6 ON PAIN SCALE 0-10. MEDICATED WITH NORCO PO PER PRN ORDER, SEE EMAR. CALL LIGHT IN REACH.
--- NOTE | 2019-09-27 10:00 | NUR ---
AMBULATORY IN ROOM. RESP-EASY AND REGULAR. STATES PAIN MEDICATION HELPED. CALL LIGHT IN REACH.
--- NOTE | 2019-09-27 10:30 | NUR ---
Dial Lathe Operator in to talk to patient. Patient states lives at home with her children. There are 16 steps in the home. [facility]ician[facility] Home health services: none Patient's level of ADLs: INDEPENDENT Patient has working utilities: yes DME: none Follow-up physician's appointment after d/c: she would like to follow up with Dr. Ocampo, will make appt prior to discharge Does patient want to access PORTAL?: no Discharge plan discussed with patient. She lives at home with her children. She is independent in her ADLs and ambulation. Discussed home health care services and she denies any home needs at this time. She would like to see Dr. Ocampo on discharge. When medically stable she will be discharged to home. She states he father will provide transportation on discharge. BRITTANY GRADY
[2019-09-27 12:00] VITALS: BP 130/96
[2019-09-27 16:00] VITALS: BP 130/79
--- NOTE | 2019-09-27 16:33 | NUR ---
PT MEDICATED WITH PO NORCO PER PRN ORDER FOR C/O ABD AND EAR PAIN. RATES PAIN 05/15. WILL MONITOR EFFECTIVENESS.
--- NOTE | 2019-09-27 18:15 | NUR ---
DIAN RELIEVING PAIN PER PT.
[2019-09-27 20:00] VITALS: BP 117/67
--- NOTE | 2019-09-27 21:13 | NUR ---
NOTIFIED DR. BLAKE OF PATIENT COMPLAINING OF EAR PAIN AND THAT THE PAIN PILL DIDN'T HELP AT ALL. NOTIFIED HER THAT PATIENT RECIEVED 15MG OF TORADOL LAST NIGHT AND SLEPT THROUGHOUT THE NIGHT WITHOUT PROBLEM. SHE STATED SHE WOULD PUT SOMETHING IN
--- NOTE | 2019-09-27 22:00 | NUR ---
PRN TORADOL EFFECTIVE FOR EAR PAIN PER PT
[2019-09-28] VITALS: BP 120/62; BP 136/90
[2019-09-28 06:36] LABS: HEMATOCRIT 39.7 % (37.0-47.0); HEMOGLOBIN 13.5 g/dl (12.0-16.0); MEAN CELL VOLUME 96.6 fl (81.0-99.0); MEAN CORPUSCULAR HGB 32.8 pg (27.0-31.0); PLATELET COUNT AUTOMATED 261 10*3/uL (130-400); RED BLOOD COUNT 4.11 10*6/uL (4.10-5.10); RED CELL DISTRI WIDTH 12.8 % (0-14.5); WHITE BLOOD COUNT 11.9 10*3/uL (4.8-10.8)
[2019-09-28 06:53] LABS: BUN 9 mg/dl (7-24); CHLORIDE 113 mmol/L (98-107); CREATININE 0.64 mg/dL (0.55-1.02); POTASSIUM 3.9 mmol/L (3.5-5.1); SODIUM 141 mmol/L (136-145)
[2019-09-28 06:58] LABS: TOTAL CELLS COUNTED 100 #CELLS
[2019-09-28 06:59] LABS: PLATELET SUFFICIENCY NORMAL (NORMAL)
[2019-09-28 08:00] VITALS: BP 113/81
[2019-09-28] MEDS ORDERED: AUGMENTIN 875-875 MG PO (11:02)
[2019-09-28] MEDS ORDERED: CIPROFLOXACIN2.5 M1 OT (11:02)
--- NOTE | 2019-09-28 11:34 | NUR ---
DR BLANCO CALLED RE: PT REQUESTING NORCO, MEDICATION NOT DUE FOR ANOTHER HOUR. NORCO IS ORDERED Q6. ORDERS RECEIVED- OK TO GIVE NOW.
--- NOTE | 2019-09-28 12:54 | NUR ---
Discharge instructions reviewed with patient/family. Patient receptive and verbalizes understanding. Follow-up care arranged. Written instructions given to patient/family. NITHIN PASCUAL
== END 2019-09-28 12:54 | disposition home or self-care (01) | DRG 115 ==
LOC: ED 09:50 → 5E 14:03 → EDHOLD 14:03 → 5E 14:34
PROVIDERS: Internal Medicine; Physician Assistant; ADMIT Internal Medicine
DX: H60.11 Cellulitis of right external ear (principal); K52.9 Noninfective gastroenteritis and colitis, unspecified; F17.210 Nicotine dependence, cigarettes, uncomplicated; K50.918 Crohn's disease, unspecified, with other complication; K27.9 Peptic ulcer, site unspecified, unspecified as acute or chronic, without hemorrhage or perforation; I95.89 Other hypotension; E86.1 Hypovolemia; E87.8 Other disorders of electrolyte and fluid balance, not elsewhere classified; Z88.1 Allergy status to other antibiotic agents; Z90.49 Acquired absence of other specified parts of digestive tract; Z79.899 Other long term (current) drug therapy

== ENCOUNTER 2019-10-14 18:51 | Inpatient (IN) | payer OTHER ==
[~2019-10-14] VITALS: Ht 157.5 cm; Wt 63.2 kg
[~2019-10-14 18:51] MED LIST changes: +AUGMENTIN 875-875 MG PO; +CIPROFLOXACIN2.5 M1 OT; +PRILOSEC20 M1 PO; +REMICADE100 MG IM
[2019-10-14 19:00] VITALS: BP 104/60
[2019-10-14 19:51] LABS: BILIRUBIN NEGATIVE (NEGATIVE); BLOOD 3+ (NEGATIVE); CLARITY SL CLOUDY (CLEAR); COLOR YELLOW (YELLOW); GLUCOSE NEGATIVE (NEGATIVE); KETONE NEGATIVE (NEGATIVE); LEUKO ESTERASE TRACE (NEGATIVE); NITRITE NEGATIVE (NEGATIVE); UROBILINOGEN 0.2 E.U./dl (0.2-1.0)
[2019-10-14 20:00] LABS: BACTERIA 1+; EPITHELIAL CELLS TNTC; MUCOUS 1+; RBC 21-30 rbc/hpf (0-2)
[2019-10-14 20:00] LABS: BASO # 0.1 10*3/uL (0.0-0.1); BASO % 0.7 % (0.0-1.0); EOS # 0.2 10*3/uL (0.0-0.4); EOS % 2.8 % (1.0-4.0); HEMOGLOBIN 13.8 g/dl (12.0-16.0); LYMPH # 3.1 10*3/uL (1.3-4.4); LYMPH % 35.8 % (27.0-41.0); MEAN CELL VOLUME 97.1 fl (81.0-99.0); MEAN CORPUSCULAR HGB 33.5 pg (27.0-31.0); MEAN CORPUSCULAR HGB CONC 34.5 g/dl (33.0-37.0); MEAN PLATELET VOLUME 9.4 fl (9.6-12.3); MONO # 0.7 10*3/uL (0.1-1.0); MONO % 7.7 % (3.0-9.0); NEUT # 4.6 10*3/uL (2.3-7.9); NEUT % 52.8 % (47.0-73.0); PLATELET COUNT AUTOMATED 255 10*3/uL (130-400); RED BLOOD COUNT 4.12 10*6/uL (4.10-5.10); RED CELL DISTRI WIDTH 12.7 % (0-14.5); WHITE BLOOD COUNT 8.6 10*3/uL (4.8-10.8)
[2019-10-14 20:16] LABS: ALBUMIN 3.1 gm/dl (3.1-4.5); ALKALINE PHOSPHATASE 67 U/L (45-117); BUN 8 mg/dl (7-24); CHLORIDE 110 mmol/L (98-107); CREATININE 0.75 mg/dL (0.55-1.02); POTASSIUM 3.6 mmol/L (3.5-5.1); SGOT/AST 18 IU/L (3-35); SGPT/ALT 28 U/L (12-78); SODIUM 142 mmol/L (136-145)
--- NOTE | 2019-10-14 20:25 | NUR ---
THE MORPHINE HAS HELPED WITH THE PATIENTS ABDOMINAL PAIN
[2019-10-14 21:17] VITALS: BP 95/58
--- NOTE | 2019-10-14 21:18 | NUR ---
PT RESTING IN BED STATES THAT SHE IS FEELING IMPROVED.
[2019-10-15 01:30] VITALS: BP 118/82
--- NOTE | 2019-10-15 01:30 | NUR ---
A 39, admitted to , under the services of SAGAR Devine DO with a diagnosis of ILEITIS, EXAC OF CROHNS. Chief complaint is ABD PAIN. Patient arrived via stretcher from ER. Monitor applied. Initial assessment completed. Vital signs taken and recorded. SAGAR DEVINE DO notified of admission to the unit. Orders received. See assessment for past medical history, medications and allergies. Patient and/or family oriented to unit. [facility] visitation policy reviewed. Clothing/patient valuable form completed. ROEL MORTENSEN
[2019-10-15 02:11] VITALS: BP 118/82
[2019-10-15 06:39] LABS: BASO # 0.1 10*3/uL (0.0-0.1); EOS # 0.3 10*3/uL (0.0-0.4); EOS % 3.9 % (1.0-4.0); HEMATOCRIT 39.4 % (37.0-47.0); HEMOGLOBIN 13.2 g/dl (12.0-16.0); LYMPH # 2.8 10*3/uL (1.3-4.4); LYMPH % 39.5 % (27.0-41.0); MEAN CELL VOLUME 99.7 fl (81.0-99.0); MEAN CORPUSCULAR HGB 33.4 pg (27.0-31.0); MEAN CORPUSCULAR HGB CONC 33.5 g/dl (33.0-37.0); MEAN PLATELET VOLUME 9.6 fl (9.6-12.3); MONO # 0.6 10*3/uL (0.1-1.0); MONO % 8.8 % (3.0-9.0); NEUT # 3.2 10*3/uL (2.3-7.9); NEUT % 46.5 % (47.0-73.0); PLATELET COUNT AUTOMATED 231 10*3/uL (130-400); RED BLOOD COUNT 3.95 10*6/uL (4.10-5.10); RED CELL DISTRI WIDTH 12.8 % (0-14.5)
[2019-10-15 06:59] LABS: BUN 8 mg/dl (7-24); CHLORIDE 111 mmol/L (98-107); CREATININE 0.68 mg/dL (0.55-1.02); PHOSPHOROUS 3.4 mg/dL (2.5-4.9); POTASSIUM 3.6 mmol/L (3.5-5.1); SODIUM 140 mmol/L (136-145)
--- NOTE | 2019-10-15 07:30 | NUR ---
PT MEDICATED WITH PRN NORCO FOR C/O ABDOMINAL PAIN. PT RATES PAIN 03/14. WILL MONITOR. BREAKFAST ORDERED.
[2019-10-15 08:00] VITALS: BP 92/55
--- NOTE | 2019-10-15 08:30 | NUR ---
PRN NORCO EFFECTIVE PER PT.
[2019-10-15 12:00] VITALS: BP 102/63
--- NOTE | 2019-10-15 12:06 | NUR ---
PT MEDICATED WITH PRN NORCO FOR C/O ABDOMINAL DISCOMFORT. WILL MONITOR.
--- NOTE | 2019-10-15 12:07 | NUR ---
PT C/O RIGHT LOWER QUAD ABDOMINAL PAIN, RATES PAIN 6 ON PAIN SCALE 0-10. MEDICATED WITH NORCO PO PER PRN ORDER, SEE EMAR. CALL LIGHT IN REACH.
--- NOTE | 2019-10-15 12:28 | NUR ---
Cigar Packer in to talk to patient. Patient states lives at HOME with BOYFRIEND AND HER KIDS. There are FEW steps in the home. [facility]ician: [facility] Home health services: NONE Patient's level of ADLs: INDEPENDENT Patient has working utilities: YES DME: NONE Follow-up physician's appointment after d/c: WILL BE MADE BY HOSPITALIST NURSE DIRECTOR ON DISCHARGE Does patient want to access PORTAL?: NO Discharge plan PT LIVES AT HOME WITH HER BOYFRIEND AND INDEPENDENT IN HER CARE. DENIES SHE WILL HAVE ANY NEEDS ON DISCHARGE. PLANS TO RETURN HOME WHEN MEDICALLY STABLE. WILL CONTINUE TO FOLLOW. STATES SHE WILL HAVE A RIDE HOME.. CHANDNI ROJO
--- NOTE | 2019-10-15 13:00 | NUR ---
PRN NORCO EFFECTIVE PER PT.
--- NOTE | 2019-10-15 13:20 | NUR ---
DR. REYES NOTIFIED OF CONSULT.
[2019-10-15 16:00] VITALS: BP 101/78
--- NOTE | 2019-10-15 17:05 | NUR ---
PT MEDICATED WITH PRN NORCO FOR C/O ABDOMINAL PAIN. PT REPORTS APPETITE IS NORMAL. RATES PAIN 7/10. WILL MONITOR.
--- NOTE | 2019-10-15 18:41 | NUR ---
PRN NORCO EFFECTIVE PER PT.
--- NOTE | 2019-10-15 19:49 | NUR ---
24 HR chart check completed.
[2019-10-15 20:00] VITALS: BP 120/68
--- NOTE | 2019-10-15 21:00 | NUR ---
RESTING IN BED WITH NO ACUTE DISTRESS NOTED. RESPIRATIONS EASY. LUNGS DIMINISHED, CLEAR. PULSE OX 97% RA. ABD SOFT WITH HYPERACTIVE BS. IV FLUIDS INFUSING PER ORDER. CALL LIGHT WITHIN REACH. NO VOICED COMPLAINTS
--- NOTE | 2019-10-15 21:19 | NUR ---
REQUESTED AND RECEIVED NORCO AND RESTORIL PER PRN ORDER FOR COMPLAINTS OF ABD PAIN RATING A 7. CALL LIGHT WITHIN REACH. WILL MONITOR FOR EFFECTIVENESS
--- NOTE | 2019-10-15 22:00 | NUR ---
MEDS EFFECTIVE. SLEEPING. RESPIRATIONS EASY. CALL LIGHT WITHIN REACH/
[2019-10-16] VITALS: BP 105/63
--- NOTE | 2019-10-16 | NUR ---
SLEEPING. NO DISTRESS NOTED. RESPIRATIONS EASY. VSS. IV FLUIDS MAINTAINED
--- NOTE | 2019-10-16 03:00 | NUR ---
REQUESTED AND RECEIVED NORCO PER PRN ORDER FOR COMPLAINTS OF ABD PAIN RATING A 7. CALL LIGHT WITHIN REACH. WILL MONITOR
--- NOTE | 2019-10-16 04:00 | NUR ---
EARLIER MEDS APPEAR EFFECTIVE. SLEEPING. RESPIRATIONS EASY. IV FLUIDS MAINTAINED. CALL LIGHT WITHIN REACH
[2019-10-16 06:46] LABS: BASO % 0.1 % (0.0-1.0); HEMATOCRIT 40.6 % (37.0-47.0); HEMOGLOBIN 13.7 g/dl (12.0-16.0); LYMPH # 1.4 10*3/uL (1.3-4.4); LYMPH % 18.5 % (27.0-41.0); MEAN CELL VOLUME 98.5 fl (81.0-99.0); MEAN CORPUSCULAR HGB 33.3 pg (27.0-31.0); MEAN CORPUSCULAR HGB CONC 33.7 g/dl (33.0-37.0); MEAN PLATELET VOLUME 9.8 fl (9.6-12.3); MONO # 0.2 10*3/uL (0.1-1.0); MONO % 2.1 % (3.0-9.0); NEUT # 5.9 10*3/uL (2.3-7.9); NEUT % 78.8 % (47.0-73.0); PLATELET COUNT AUTOMATED 248 10*3/uL (130-400); RED BLOOD COUNT 4.12 10*6/uL (4.10-5.10); RED CELL DISTRI WIDTH 12.5 % (0-14.5); WHITE BLOOD COUNT 7.5 10*3/uL (4.8-10.8)
--- NOTE | 2019-10-16 07:04 | NUR ---
AWAKENS, REQUESTED AND RECEIVED NORCO PER PRN ORDER FOR COMPLAINTS OF ABD PAIN RATING A 7. CALL LIGHT WITHIN REACH. WILL MONITOR FOR EFFECTIVENESS
[2019-10-16 08:00] VITALS: BP 109/67
--- NOTE | 2019-10-16 08:40 | NUR ---
REMAINS AWAKE, STATES RELIEF FROM EARLIER MEDS. RESPIRATIONS EASY. LUNGS DIMINISHED, CLEAR. PULSE OX 98% RA. ABD SOFT WITH HYPER BS. IV FLUIDS INFUSING PER ORDER. TOLERATING DIET. CALL LIGHT WITHIN REACH. NO VOICED COMPLAINTS
--- NOTE | 2019-10-16 10:00 | NUR ---
IV DISCONNECTED TO ALLOW PATIENT TO SHOWER
--- NOTE | 2019-10-16 11:14 | NUR ---
PT CONTINUES TO DENY NEEDS ON DISCHARGE. WILL CONTINUE TO FOLLOW.
[2019-10-16 12:00] VITALS: BP 116/63
--- NOTE | 2019-10-16 12:16 | NUR ---
PT COMPLAIN OF ABDOMINAL PAIN 03/14, NORCO GIVEN. WILL MONITOR FOR EFFECTIVENESS.
[2019-10-16] MEDS ORDERED: PREDNISONE10 MG PO (12:42)
[2019-10-16] MEDS ORDERED: FLAGYL500 MG PO (12:43)
[2019-10-16] MEDS ORDERED: CIPRO500 MG PO (12:43)
--- NOTE | 2019-10-16 14:02 | NUR ---
Discharge instructions reviewed with patient/family. Patient receptive and verbalizes understanding. Follow-up care understood. Written instructions given to patient/family. iv removed, dressing applied. pt has no questions on discharge instructions. understands to pick up and delivery driver new rx at pharmacy. SILVERIO MENDEZ
== END 2019-10-16 14:08 | disposition home or self-care (01) | DRG 245 ==
LOC: ED 18:51 → 5E 23:00 → EDHOLD 23:00 → 5E 10-15 00:12
PROVIDERS: Emergency Medicine; Internal Medicine; Internal Medicine Gastroenterology; ADMIT Emergency Medicine
DX: K50.918 Crohn's disease, unspecified, with other complication (principal); K52.9 Noninfective gastroenteritis and colitis, unspecified; K27.9 Peptic ulcer, site unspecified, unspecified as acute or chronic, without hemorrhage or perforation; E44.1 Mild protein-calorie malnutrition; E83.51 Hypocalcemia; F17.210 Nicotine dependence, cigarettes, uncomplicated; F12.90 Cannabis use, unspecified, uncomplicated; Z90.710 Acquired absence of both cervix and uterus; Z90.49 Acquired absence of other specified parts of digestive tract; Z68.25 Body mass index [BMI] 25.0-25.9, adult; Z88.1 Allergy status to other antibiotic agents; Z79.899 Other long term (current) drug therapy

== ENCOUNTER 2019-10-25 09:49 | Inpatient (IN) | payer OTHER ==
[~2019-10-25] VITALS: Ht 157.4 cm; Wt 68.7 kg
[2019-10-25 10:04] VITALS: BP 126/74
[2019-10-25 11:06] LABS: BASO # 0.1 10*3/uL (0.0-0.1); BASO % 0.6 % (0.0-1.0); EOS # 0.4 10*3/uL (0.0-0.4); EOS % 3.4 % (1.0-4.0); HEMATOCRIT 43.9 % (37.0-47.0); HEMOGLOBIN 14.4 g/dl (12.0-16.0); LYMPH # 4.2 10*3/uL (1.3-4.4); LYMPH % 38.6 % (27.0-41.0); MEAN CELL VOLUME 101.2 fl (81.0-99.0); MEAN CORPUSCULAR HGB 33.2 pg (27.0-31.0); MEAN CORPUSCULAR HGB CONC 32.8 g/dl (33.0-37.0); MEAN PLATELET VOLUME 9.1 fl (9.6-12.3); MONO # 0.8 10*3/uL (0.1-1.0); MONO % 7.6 % (3.0-9.0); NEUT # 5.2 10*3/uL (2.3-7.9); NEUT % 48.7 % (47.0-73.0); PLATELET COUNT AUTOMATED 273 10*3/uL (130-400); RED BLOOD COUNT 4.34 10*6/uL (4.10-5.10); RED CELL DISTRI WIDTH 12.8 % (0-14.5); WHITE BLOOD COUNT 10.8 10*3/uL (4.8-10.8)
[2019-10-25 11:18] LABS: ACT PARTIAL THROMBO TIME 23.5 SECONDS (20.0-32.1); INTERNATIONAL NORM RATIO 0.9 (2.0-3.5)
[2019-10-25 11:23] LABS: ALBUMIN 2.8 gm/dl (3.1-4.5); ALKALINE PHOSPHATASE 51 U/L (45-117); BUN 9 mg/dl (7-24); CHLORIDE 109 mmol/L (98-107); CREATININE 0.94 mg/dL (0.55-1.02); LIPASE 166 U/L (73-393); POTASSIUM 3.5 mmol/L (3.5-5.1); SGOT/AST 10 IU/L (3-35); SGPT/ALT 19 U/L (12-78); SODIUM 141 mmol/L (136-145); TOTAL PROTEIN 5.7 gm/dL (6.4-8.2)
[2019-10-25 12:10] LABS: BILIRUBIN NEGATIVE (NEGATIVE); CLARITY CLEAR (CLEAR); COLOR YELLOW (YELLOW); GLUCOSE NEGATIVE (NEGATIVE); KETONE NEGATIVE (NEGATIVE)
[2019-10-25 12:11] LABS: BLOOD 2+ (NEGATIVE)
[2019-10-25 12:16] LABS: CALCIUM OXALATE CRYSTALS 1+; LEUKO ESTERASE NEGATIVE (NEGATIVE); MUCOUS 1+; NITRITE NEGATIVE (NEGATIVE); UROBILINOGEN 0.2 E.U./dl (0.2-1.0)
[2019-10-25 16:15] VITALS: BP 96/54
--- NOTE | 2019-10-25 16:15 | NUR ---
Time: 1614 A 39 year old FEMALE admitted to 5E under services of DR. GEMA HODGE,[facility]. Pt. arrived via bed from ER. Chief complaint: ABDOMINAL PAIN. ANDREW FRAIRE
--- NOTE | 2019-10-25 16:48 | NUR ---
DR REYES NOTIFIED OF NEW CONSULT FOR HX OF CROHN'S DISEASE,ORDER RECIEVED.
--- NOTE | 2019-10-25 19:38 | NUR ---
DR. REYES CALLED IN & GIVEN INFORMATION REGARDING PATIENT. NO NEW ORDERS RECEIVED. DR. REYES STATED THAT HE WOULD SEE HER IN THE MORNING.
[2019-10-25 20:00] VITALS: BP 98/53
--- NOTE | 2019-10-25 21:33 | NUR ---
MEDICATED WITH TORADOL FOR C/O ABDOMINAL PAIN RATED AN 8/10.
[2019-10-26] VITALS: BP 96/55
--- NOTE | 2019-10-26 02:00 | NUR ---
RESTING IN BED WITH EYES CLOSED; TORADOL APPARENTLY EFFECTIVE.
--- NOTE | 2019-10-26 03:55 | NUR ---
ASKING FOR PAIN MEDICATION; LET PATIENT KNOW THAT IT WAS TOO SOON. ASKED FOR A SLEEPING PILL & INFORMED PATIENT THAT I COULD NOT GIVE HER A SLEEPING PILL AT THIS TIME. VERBALIZED UNDERSTANDING. THEN ASKED ABOUT HER DIET & STATED THAT SHE PROBABLY HAD TO WAIT FOR THE DR. I TOLD HER THAT THE DR. WOULD HAVE TO BE THE ONE TO CHANGE HER DIET. VERBALIZED UNDERSTANDING. CALL LIGHT WITHIN REACH. NO DISTRESS NOTED.
--- NOTE | 2019-10-26 05:37 | NUR ---
MEDICATED WITH TORADOL FOR C/O ABDOMINAL PAIN.
[2019-10-26 06:03] LABS: BASO % 0.3 % (0.0-1.0); EOS # 0.3 10*3/uL (0.0-0.4); EOS % 3.3 % (1.0-4.0); HEMATOCRIT 40.9 % (37.0-47.0); HEMOGLOBIN 13.5 g/dl (12.0-16.0); LYMPH # 3.6 10*3/uL (1.3-4.4); LYMPH % 40.5 % (27.0-41.0); MEAN PLATELET VOLUME 9.4 fl (9.6-12.3); MONO # 0.7 10*3/uL (0.1-1.0); MONO % 7.6 % (3.0-9.0); NEUT # 4.1 10*3/uL (2.3-7.9); NEUT % 47.3 % (47.0-73.0); PLATELET COUNT AUTOMATED 239 10*3/uL (130-400); RED BLOOD COUNT 4.09 10*6/uL (4.10-5.10); RED CELL DISTRI WIDTH 12.8 % (0-14.5); WHITE BLOOD COUNT 8.8 10*3/uL (4.8-10.8)
[2019-10-26 06:33] LABS: BUN 7 mg/dl (7-24); CHLORIDE 110 mmol/L (98-107); POTASSIUM 3.8 mmol/L (3.5-5.1); SODIUM 141 mmol/L (136-145)
[2019-10-26 06:34] LABS: CREATININE 0.77 mg/dL (0.55-1.02)
[2019-10-26 08:00] VITALS: BP 118/86
--- NOTE | 2019-10-26 08:15 | NUR ---
Blast Furnace Keeper in to talk to patient. Patient states lives at home with her boyfriend and children. There are 16 steps in the home. Physician: Dr. Kenneth Ocampo [facility] Home health services: none Patient's level of ADLs: INDEPENDENT Patient has working utilities: yes DME: none Follow-up physician's appointment after d/c: she prefers to make her own follow up appt after discharge Does patient want to access PORTAL?: no Discharge plan discussed with patient. She lives at home with her boyfriend and children. She is independent in her ADLs and ambulation. Discussed home health care services and she denies any home needs at this time. When medically stable she will be discharged to home. She states her father will provide transportation on discharge. BRITTANY GRADY
[2019-10-26 12:00] VITALS: BP 122/82
[2019-10-26 15:07] VITALS: BP 127/80
--- NOTE | 2019-10-26 16:00 | NUR ---
TORADOL 15 MG GIVEN FOR C/O ABDOMINAL PAIN,03/14.
--- NOTE | 2019-10-26 18:23 | NUR ---
DR REYES ROUNDED AND SPOKE TO PT.
[2019-10-26 20:00] VITALS: BP 111/65
--- NOTE | 2019-10-26 22:00 | NUR ---
PT RESTING IN BED TOLERATED ROUTINE IV MEDICATION. NO C/O AT THIS TIME. CALL LIGHT IN REACH.
[2019-10-26 23:56] VITALS: BP 112/65
--- NOTE | 2019-10-27 00:20 | NUR ---
PT C/O ABDOMINAL PAIN, RATES PAIN 7 ON PAIN SCALE 0-10. MEDICATED WITH TORADOL IV PER PRN ORDER, SEE EMAR. CALL LIGHT IN REACH.
--- NOTE | 2019-10-27 01:10 | NUR ---
PT SLEEPING IN BED. RESP-EASY AND REGULAR. MEDICATION SEEMS TO BE EFFECTIVE. CALL LIGHT IN REACH.
--- NOTE | 2019-10-27 06:00 | NUR ---
TOLERATED ROUTINE IV MEDICATION. NO C/O AT THIS TIME. CALL LIGHT IN REACH.
[2019-10-27 08:00] VITALS: BP 125/89
[2019-10-27 12:00] VITALS: BP 130/79
[2019-10-27 16:00] VITALS: BP 118/93
[2019-10-27 20:00] VITALS: BP 115/71
--- NOTE | 2019-10-27 21:33 | NUR ---
CALLED DR. RAUSCH FOR SLEEPING PILL PER PT REQUEST. ORDERS TAKEN AND REVIEWED.
--- NOTE | 2019-10-27 22:00 | NUR ---
PT RESTING IN BED. RESP-EASY AND REGULAR. TOLERATING IV ANTIBIOTICS WITH NO PROBLEM. NO C/O AT THIS TIME. CALL LIGHT IN REACH.
--- NOTE | 2019-10-27 22:30 | NUR ---
IV started left wrist with #22 angiocath after 1 attempts. The IV site was prepped with Chloraprep. Heparin lock attached. Sterile dressing applied. Patient tolerated precedure well. Procedure performed according to [facility] policy & procedure. NATHANAEL SANTOS
[2019-10-28] VITALS: BP 137/90; BP 94/54
--- NOTE | 2019-10-28 | NUR ---
RESTING IN BED. NO C/O AT THIS TIME. CALL LIGHT IN REACH. SEE SHIFT ASSESSMENT.
--- NOTE | 2019-10-28 01:00 | NUR ---
RESTING IN BED WITH EYES CLOSED. RESP-EASY AND REGULAR. MEDICATION SEEMS TO BE EFFECTIVE. CALL LIGHT IN REACH.
--- NOTE | 2019-10-28 05:50 | NUR ---
PT TOLERATING ROUTINE IV MEDICATION. NO C/O AT THIS TIME. CALL LIGHT IN REACH.
[2019-10-28 06:39] LABS: BASO % 0.3 % (0.0-1.0); EOS # 0.2 10*3/uL (0.0-0.4); EOS % 1.5 % (1.0-4.0); HEMATOCRIT 44.2 % (37.0-47.0); HEMOGLOBIN 14.7 g/dl (12.0-16.0); LYMPH # 3.3 10*3/uL (1.3-4.4); LYMPH % 27.5 % (27.0-41.0); MEAN CELL VOLUME 99.5 fl (81.0-99.0); MEAN CORPUSCULAR HGB 33.1 pg (27.0-31.0); MEAN CORPUSCULAR HGB CONC 33.3 g/dl (33.0-37.0); MEAN PLATELET VOLUME 9.1 fl (9.6-12.3); MONO % 7.9 % (3.0-9.0); NEUT # 7.5 10*3/uL (2.3-7.9); NEUT % 62.1 % (47.0-73.0); PLATELET COUNT AUTOMATED 254 10*3/uL (130-400); RED BLOOD COUNT 4.44 10*6/uL (4.10-5.10); RED CELL DISTRI WIDTH 12.7 % (0-14.5); WHITE BLOOD COUNT 12.1 10*3/uL (4.8-10.8)
[2019-10-28 06:50] LABS: BUN 13 mg/dl (7-24); CHLORIDE 110 mmol/L (98-107); CREATININE 0.86 mg/dL (0.55-1.02); SODIUM 142 mmol/L (136-145)
[2019-10-28 08:00] VITALS: BP 125/68
--- NOTE | 2019-10-28 08:06 | NUR ---
24 HR chart check completed.
--- NOTE | 2019-10-28 09:11 | NUR ---
RESTING IN BED WATCHING TV. RESPIRATIONS EASY. LUNGS DIMINISHED, CLEAR. PULSE OX 98% RA. ABD SOFT WITH HYPERACTIVE BOWEL SOUNDS, DENIES N/V/D. REQUESTED AND RECEIVED TORADOL PER PRN ORDER FOR COMPLAINTS OF LOWER ABD PAIN RATING A 10. CALL LIGHT WITHIN REACH. WILL MONITOR FOR EFECTIVENESS
--- NOTE | 2019-10-28 10:00 | NUR ---
MEDS APPEAR EFFECTIVE. TOLERARING BREAKFAST. CALL LIGHT WITHIN REACH. NO FURTHER VOICED COMPLAINTS
[2019-10-28 12:00] VITALS: BP 122/79
[2019-10-28] MEDS ORDERED: FLAGYL500 MG PO (12:28)
[2019-10-28] MEDS ORDERED: CIPRO500 MG PO (12:28)
[2019-10-28] MEDS ORDERED: MEDROL DOSEPAK4 MG PO (12:33)
--- NOTE | 2019-10-28 13:00 | NUR ---
AMBULATORY IN [place]. NO DISTRESS NOTED. NO VOICED COMPLAINTS
--- NOTE | 2019-10-28 13:52 | NUR ---
Discharge instructions reviewed with patient/family. Patient receptive and verbalizes understanding. Written instructions given to patient/family. PATIENT OFFERED A WC FOR D/C, DECLINED. AMBULATED OFF FLOOR IN CARE OF BOYFRIENMYRTLE LOPEZ
== END 2019-10-28 13:52 | disposition home or self-care (01) | DRG 245 ==
LOC: ED 09:49 → EDHOLD 14:16 → 5E 14:16
PROVIDERS: Nurse Practitioner Family; ADMIT Internal Medicine
DX: K50.90 Crohn's disease, unspecified, without complications (principal); K52.9 Noninfective gastroenteritis and colitis, unspecified; E44.1 Mild protein-calorie malnutrition; E83.51 Hypocalcemia; F41.9 Anxiety disorder, unspecified; Z68.27 Body mass index [BMI] 27.0-27.9, adult; Z90.49 Acquired absence of other specified parts of digestive tract; Z88.1 Allergy status to other antibiotic agents; Z79.899 Other long term (current) drug therapy; Z90.710 Acquired absence of both cervix and uterus; Z83.2 Family history of diseases of the blood and blood-forming organs and certain disorders involving the immune mechanism

== ENCOUNTER 2020-03-11 18:21 | Emergency (ER) | payer OTHER ==
[~2020-03-11] VITALS: Ht 157.4 cm; Wt 72.6 kg
[2020-03-11 20:17] LABS: BASO # 0.1 10*3/uL (0.0-0.1); BASO % 1.5 % (0.0-1.0); EOS # 0.2 10*3/uL (0.0-0.4); EOS % 3.7 % (1.0-4.0); HEMATOCRIT 41.7 % (37.0-47.0); LYMPH # 2.6 10*3/uL (1.3-4.4); LYMPH % 48.2 % (27.0-41.0); MEAN CORPUSCULAR HGB 32.3 pg (27.0-31.0); MEAN CORPUSCULAR HGB CONC 34.1 g/dl (33.0-37.0); MEAN PLATELET VOLUME 9.6 fl (9.6-12.3); MONO # 0.4 10*3/uL (0.1-1.0); MONO % 7.1 % (3.0-9.0); NEUT # 2.1 10*3/uL (2.3-7.9); NEUT % 39.3 % (47.0-73.0); PLATELET COUNT AUTOMATED 258 10*3/uL (130-400); RED BLOOD COUNT 4.39 10*6/uL (4.10-5.10); RED CELL DISTRI WIDTH 13.4 % (0-14.5); WHITE BLOOD COUNT 5.4 10*3/uL (4.8-10.8)
[2020-03-11 20:34] LABS: ALBUMIN 3.3 gm/dl (3.1-4.5); ALKALINE PHOSPHATASE 69 U/L (45-117); BUN 4 mg/dl (7-24); CHLORIDE 108 mmol/L (98-107); CREATININE 0.83 mg/dL (0.55-1.02); POTASSIUM 3.8 mmol/L (3.5-5.1); SGOT/AST 21 IU/L (3-35); SGPT/ALT 23 U/L (12-78); SODIUM 139 mmol/L (136-145); TOTAL PROTEIN 6.7 gm/dL (6.4-8.2)
[2020-03-11] MEDS ORDERED: AMOXICILLIN500 M2 PO (22:24)
== END 2020-03-11 23:30 | disposition home or self-care (01) ==
LOC: ED 18:21
PROVIDERS: Emergency Medicine
DX: K04.7 Periapical abscess without sinus (principal); F17.200 Nicotine dependence, unspecified, uncomplicated; Z88.2 Allergy status to sulfonamides; Z79.899 Other long term (current) drug therapy

== ENCOUNTER 2020-04-25 19:05 | Emergency (ER) | payer OTHER ==
[~2020-04-25] VITALS: Ht 157.4 cm; Wt 68.0 kg
[2020-04-25 20:18] LABS: BASO % 0.7 % (0.0-1.0); EOS # 0.2 10*3/uL (0.0-0.4); EOS % 2.5 % (1.0-4.0); HEMATOCRIT 39.6 % (37.0-47.0); LYMPH # 2.9 10*3/uL (1.3-4.4); LYMPH % 48.3 % (27.0-41.0); MEAN CELL VOLUME 95.9 fl (81.0-99.0); MEAN CORPUSCULAR HGB 32.7 pg (27.0-31.0); MEAN CORPUSCULAR HGB CONC 34.1 g/dl (33.0-37.0); MEAN PLATELET VOLUME 9.3 fl (9.6-12.3); MONO # 0.5 10*3/uL (0.1-1.0); MONO % 7.9 % (3.0-9.0); NEUT # 2.4 10*3/uL (2.3-7.9); NEUT % 40.4 % (47.0-73.0); PLATELET COUNT AUTOMATED 274 10*3/uL (130-400); RED BLOOD COUNT 4.13 10*6/uL (4.10-5.10); RED CELL DISTRI WIDTH 13.2 % (0-14.5)
[2020-04-25 20:33] LABS: BILIRUBIN NEGATIVE; BLOOD TRACE-INTACT (NEGATIVE); CLARITY CLEAR (CLEAR); COLOR YELLOW (YELLOW); GLUCOSE NEGATIVE; KETONE NEGATIVE; SPECIFIC GRAVITY 1.005 (1.005-1.030)
[2020-04-25 20:34] LABS: BACTERIA 1+; LEUKO ESTERASE 1+ (NEGATIVE); NITRITE NEGATIVE (NEGATIVE); RBC 0-2 rbc/hpf (0-2); UROBILINOGEN 0.2 E.U./dl (0.2-1.0)
[2020-04-25 20:39] LABS: ALBUMIN 3.1 gm/dl (3.1-4.5); ALKALINE PHOSPHATASE 70 U/L (45-117); BUN 8 mg/dl (7-24); CHLORIDE 107 mmol/L (98-107); CREATININE 0.75 mg/dL (0.55-1.02); LIPASE 140 U/L (73-393); POTASSIUM 3.7 mmol/L (3.5-5.1); SGOT/AST 14 IU/L (3-35); SGPT/ALT 18 U/L (12-78); SODIUM 139 mmol/L (136-145); TOTAL PROTEIN 6.5 gm/dL (6.4-8.2)
[2020-04-25] MEDS ORDERED: FLAGYL500 MG PO (21:20)
[2020-04-25] MEDS ORDERED: CIPRO500 MG PO (21:20)
== END 2020-04-25 22:13 | disposition home or self-care (01) ==
LOC: ED 19:05
PROVIDERS: Physician Assistant
DX: K52.9 Noninfective gastroenteritis and colitis, unspecified (principal); A59.9 Trichomoniasis, unspecified; F17.200 Nicotine dependence, unspecified, uncomplicated; Z88.2 Allergy status to sulfonamides; Z79.899 Other long term (current) drug therapy

== ENCOUNTER 2020-06-01 12:17 | Emergency (ER) | payer OTHER ==
[~2020-06-01] VITALS: Ht 157.4 cm; Wt 72.6 kg
[2020-06-01 13:34] LABS: BASO # 0.1 10*3/uL (0.0-0.1); BASO % 0.8 % (0.0-1.0); EOS # 0.1 10*3/uL (0.0-0.4); EOS % 1.6 % (1.0-4.0); HEMATOCRIT 43.6 % (37.0-47.0); LYMPH # 2.5 10*3/uL (1.3-4.4); LYMPH % 39.7 % (27.0-41.0); MEAN CELL VOLUME 95.8 fl (81.0-99.0); MEAN CORPUSCULAR HGB 32.5 pg (27.0-31.0); MEAN CORPUSCULAR HGB CONC 33.9 g/dl (33.0-37.0); MEAN PLATELET VOLUME 9.2 fl (9.6-12.3); MONO # 0.4 10*3/uL (0.1-1.0); MONO % 6.7 % (3.0-9.0); NEUT # 3.2 10*3/uL (2.3-7.9); PLATELET COUNT AUTOMATED 288 10*3/uL (130-400); RED BLOOD COUNT 4.55 10*6/uL (4.10-5.10); RED CELL DISTRI WIDTH 12.7 % (0-14.5); WHITE BLOOD COUNT 6.3 10*3/uL (4.8-10.8)
[2020-06-01 13:51] LABS: ALBUMIN 3.4 gm/dl (3.1-4.5); ALKALINE PHOSPHATASE 75 U/L (45-117); BUN 9 mg/dl (7-24); CHLORIDE 107 mmol/L (98-107); CREATININE 0.73 mg/dL (0.55-1.02); POTASSIUM 3.8 mmol/L (3.5-5.1); SGOT/AST 16 IU/L (3-35); SGPT/ALT 22 U/L (12-78); SODIUM 138 mmol/L (136-145); TOTAL PROTEIN 6.9 gm/dL (6.4-8.2)
[2020-06-01] MEDS ORDERED: CEPHALEXIN500 M1 PO (15:06)
== END 2020-06-01 15:25 | disposition home or self-care (01) ==
LOC: ED 12:17
PROVIDERS: Physician Assistant
DX: L02.31 Cutaneous abscess of buttock (principal); R42 Dizziness and giddiness; R19.7 Diarrhea, unspecified; F17.200 Nicotine dependence, unspecified, uncomplicated; Z88.2 Allergy status to sulfonamides; Z79.899 Other long term (current) drug therapy

== ENCOUNTER 2020-08-18 20:35 | Emergency (ER) | payer OTHER ==
[~2020-08-18] VITALS: Ht 157.4 cm; Wt 72.6 kg
[~2020-08-18 20:35] MED LIST changes: +CEPHALEXIN500 M1 PO
[2020-08-18] MEDS ORDERED: LOMOTIL 2.5-0.1 EACH PO (21:00)
[2020-08-18] MEDS ORDERED: BENTYL PO (21:00)
[2020-08-18 21:36] LABS: BILIRUBIN Negative (Negative); BLOOD Negative (Negative); CLARITY Cloudy (Clear); COLOR Yellow (Yellow); GLUCOSE Negative (Negative); KETONE Negative (Negative); LEUKO ESTERASE Trace (Negative); NITRITE Negative (Negative); PH 7.5 (4.5-8.0)
[2020-08-18 21:40] LABS: BASO % 0.4 % (0.0-1.0); EOS # 0.1 10*3/uL (0.0-0.4); EOS % 1.9 % (1.0-4.0); LYMPH # 3.7 10*3/uL (1.3-4.4); LYMPH % 49.3 % (27.0-41.0); MEAN CELL VOLUME 95.4 fl (81.0-99.0); MEAN CORPUSCULAR HGB 31.9 pg (27.0-31.0); MEAN CORPUSCULAR HGB CONC 33.4 g/dl (33.0-37.0); MEAN PLATELET VOLUME 9.2 fl (9.6-12.3); MONO # 0.6 10*3/uL (0.1-1.0); MONO % 7.5 % (3.0-9.0); NEUT % 40.8 % (47.0-73.0); PLATELET COUNT AUTOMATED 297 10*3/uL (130-400); RED BLOOD COUNT 4.61 10*6/uL (4.10-5.10); RED CELL DISTRI WIDTH 12.6 % (0-14.5); WHITE BLOOD COUNT 7.4 10*3/uL (4.8-10.8)
[2020-08-18 21:54] LABS: BACTERIA 2+; RBC 0-2 rbc/hpf (0-2)
[2020-08-18 21:55] LABS: ALBUMIN 3.5 gm/dl (3.1-4.5); ALKALINE PHOSPHATASE 86 U/L (45-117); BUN 8 mg/dl (7-24); CHLORIDE 104 mmol/L (98-107); CREATININE 0.84 mg/dL (0.55-1.02); POTASSIUM 3.5 mmol/L (3.5-5.1); SGOT/AST 21 IU/L (3-35); SGPT/ALT 17 U/L (12-78); SODIUM 138 mmol/L (136-145); TOTAL PROTEIN 7.2 gm/dL (6.4-8.2)
== END 2020-08-19 01:49 | disposition home or self-care (01) ==
LOC: ED 20:35
PROVIDERS: Emergency Medicine
DX: R10.31 Right lower quadrant pain (principal); R10.32 Left lower quadrant pain; R19.7 Diarrhea, unspecified; Z88.2 Allergy status to sulfonamides; Z79.899 Other long term (current) drug therapy; Z87.891 Personal history of nicotine dependence

== ENCOUNTER 2020-10-11 13:21 | Inpatient (IN) | payer OTHER ==
[~2020-10-11] VITALS: Ht 157.4 cm; Wt 1.8 kg
[2020-10-11 13:38] VITALS: BP 136/87
[2020-10-11 14:08] LABS: BASO % 0.1 % (0.0-1.0); EOS % 0.1 % (1.0-4.0); HEMATOCRIT 47.8 % (37.0-47.0); LYMPH # 1.7 10*3/uL (1.3-4.4); LYMPH % 20.4 % (27.0-41.0); MEAN CORPUSCULAR HGB 32.8 pg (27.0-31.0); MEAN CORPUSCULAR HGB CONC 33.5 g/dl (33.0-37.0); MEAN PLATELET VOLUME 9.3 fl (9.6-12.3); MONO # 0.3 10*3/uL (0.1-1.0); MONO % 3.5 % (3.0-9.0); NEUT # 6.1 10*3/uL (2.3-7.9); NEUT % 75.5 % (47.0-73.0); PLATELET COUNT AUTOMATED 321 10*3/uL (130-400); RED BLOOD COUNT 4.88 10*6/uL (4.10-5.10); RED CELL DISTRI WIDTH 12.5 % (0-14.5); WHITE BLOOD COUNT 8.1 10*3/uL (4.8-10.8)
[2020-10-11 14:24] LABS: ALBUMIN 3.7 gm/dl (3.1-4.5); ALKALINE PHOSPHATASE 102 U/L (45-117); BUN 9 mg/dl (7-24); CHLORIDE 109 mmol/L (98-107); CREATININE 0.77 mg/dL (0.55-1.02); LIPASE 82 U/L (73-393); POTASSIUM 3.9 mmol/L (3.5-5.1); SGOT/AST 17 IU/L (3-35); SGPT/ALT 25 U/L (12-78); SODIUM 139 mmol/L (136-145); TOTAL PROTEIN 7.8 gm/dL (6.4-8.2)
[2020-10-11 17:14] VITALS: BP 122/79
[2020-10-11] MEDS ORDERED: VITAMIN D325 MCG PO (17:22)
[2020-10-11 20:00] VITALS: BP 123/78
[2020-10-12] VITALS: BP 111/72
[2020-10-12 07:14] LABS: BASO % 0.4 % (0.0-1.0); EOS # 0.1 10*3/uL (0.0-0.4); EOS % 1.9 % (1.0-4.0); HEMATOCRIT 40.2 % (37.0-47.0); LYMPH # 2.3 10*3/uL (1.3-4.4); LYMPH % 43.9 % (27.0-41.0); MEAN CELL VOLUME 98.3 fl (81.0-99.0); MEAN CORPUSCULAR HGB 32.5 pg (27.0-31.0); MEAN CORPUSCULAR HGB CONC 33.1 g/dl (33.0-37.0); MEAN PLATELET VOLUME 9.6 fl (9.6-12.3); MONO # 0.5 10*3/uL (0.1-1.0); MONO % 8.7 % (3.0-9.0); NEUT # 2.4 10*3/uL (2.3-7.9); NEUT % 44.9 % (47.0-73.0); PLATELET COUNT AUTOMATED 272 10*3/uL (130-400); RED BLOOD COUNT 4.09 10*6/uL (4.10-5.10); RED CELL DISTRI WIDTH 12.6 % (0-14.5); WHITE BLOOD COUNT 5.3 10*3/uL (4.8-10.8)
[2020-10-12 07:44] LABS: ALBUMIN 2.9 gm/dl (3.1-4.5); ALKALINE PHOSPHATASE 76 U/L (45-117); BUN 8 mg/dl (7-24); CHLORIDE 111 mmol/L (98-107); POTASSIUM 3.9 mmol/L (3.5-5.1); SGOT/AST 15 IU/L (3-35); SODIUM 140 mmol/L (136-145)
[2020-10-12 07:45] LABS: SGPT/ALT 21 U/L (12-78); TOTAL PROTEIN 6.1 gm/dL (6.4-8.2)
[2020-10-12 08:00] VITALS: BP 104/84
[2020-10-12 12:00] VITALS: BP 126/80
== END 2020-10-12 16:05 | disposition home or self-care (01) | DRG 241 ==
LOC: ED 13:21 → EDHOLD 16:43 → 5E 16:43
PROVIDERS: Student in an Organized Health Care Education/Training Program; ADMIT Internal Medicine; ATTEND Internal Medicine
DX: K29.70 Gastritis, unspecified, without bleeding (principal); Z96.0 Presence of urogenital implants; F17.210 Nicotine dependence, cigarettes, uncomplicated; K50.90 Crohn's disease, unspecified, without complications; K57.90 Diverticulosis of intestine, part unspecified, without perforation or abscess without bleeding; Z88.2 Allergy status to sulfonamides; Z79.899 Other long term (current) drug therapy; Z90.49 Acquired absence of other specified parts of digestive tract; Z90.710 Acquired absence of both cervix and uterus; Z87.442 Personal history of urinary calculi; Z87.11 Personal history of peptic ulcer disease; Z71.6 Tobacco abuse counseling

== ENCOUNTER → 2020-10-27 | Outpatient (CLI) | payer OTHER ==
[~2020-10-27] MED LIST changes: +VITAMIN D325 MCG PO
== END | disposition home or self-care (01) ==
LOC: MAMMO 09:00
PROVIDERS: ATTEND Internal Medicine
DX: Z12.31 Encounter for screening mammogram for malignant neoplasm of breast (principal); N64.89 Other specified disorders of breast

== ENCOUNTER 2020-12-20 21:39 | Emergency (ER) | payer OTHER ==
[~2020-12-20] VITALS: Ht 157.4 cm; Wt 81.6 kg
[2020-12-20] MEDS ORDERED: AMOXICILLIN500 M2 PO (22:27)
[2020-12-20] MEDS ORDERED: MEDROL DOSEPAK4 MG PO (22:27)
== END 2020-12-20 22:30 ==
LOC: ED 21:39
DX: S30.861A Insect bite (nonvenomous) of abdominal wall, initial encounter (principal); M54.16 Radiculopathy, lumbar region; H65.92 Unspecified nonsuppurative otitis media, left ear; J45.909 Unspecified asthma, uncomplicated; Z88.2 Allergy status to sulfonamides; Z79.899 Other long term (current) drug therapy; Z90.49 Acquired absence of other specified parts of digestive tract; Z98.890 Other specified postprocedural states; Z90.711 Acquired absence of uterus with remaining cervical stump; W57.XXXA Bitten or stung by nonvenomous insect and other nonvenomous arthropods, initial encounter; Y93.89 Activity, other specified; Y92.89 Other specified places as the place of occurrence of the external cause; Y99.8 Other external cause status

== ENCOUNTER → 2021-01-29 | Outpatient (CLI) | payer OTHER ==
[~2021-01-29] MED LIST changes: +MERCAPTOPURINE50 M1 PO
== END | disposition home or self-care (01) ==
LOC: US 08:34
PROVIDERS: ATTEND Internal Medicine
DX: K76.89 Other specified diseases of liver (principal); K50.00 Crohn's disease of small intestine without complications; Z90.710 Acquired absence of both cervix and uterus; Z90.49 Acquired absence of other specified parts of digestive tract

== ENCOUNTER 2021-02-23 18:09 | Emergency (ER) | payer OTHER ==
[~2021-02-23] VITALS: Wt 84.8 kg
[2021-02-23 20:25] LABS: BASO % 0.5 % (0.0-1.0); EOS % 0.4 % (1.0-4.0); HEMATOCRIT 43.3 % (37.0-47.0); LYMPH # 1.8 10*3/uL (1.3-4.4); LYMPH % 22.2 % (27.0-41.0); MEAN CELL VOLUME 97.3 fl (81.0-99.0); MEAN CORPUSCULAR HGB 33.7 pg (27.0-31.0); MEAN CORPUSCULAR HGB CONC 34.6 g/dl (33.0-37.0); MEAN PLATELET VOLUME 9.3 fl (9.6-12.3); MONO # 0.2 10*3/uL (0.1-1.0); MONO % 2.9 % (3.0-9.0); NEUT # 5.9 10*3/uL (2.3-7.9); NEUT % 73.6 % (47.0-73.0); PLATELET COUNT AUTOMATED 274 10*3/uL (130-400); RED BLOOD COUNT 4.45 10*6/uL (4.10-5.10)
[2021-02-23 20:40] LABS: ALBUMIN 3.5 gm/dl (3.1-4.5); ALKALINE PHOSPHATASE 66 U/L (45-117); BUN 8 mg/dl (7-24); CHLORIDE 106 mmol/L (98-107); CREATININE 0.85 mg/dL (0.55-1.02); POTASSIUM 4.2 mmol/L (3.5-5.1); SGOT/AST 16 IU/L (3-35); SGPT/ALT 21 U/L (12-78); SODIUM 138 mmol/L (136-145); TOTAL PROTEIN 6.9 gm/dL (6.4-8.2)
[2021-02-23 21:20] LABS: BILIRUBIN Negative (Negative); BLOOD Negative (Negative); CLARITY Cloudy (Clear); COLOR Yellow (Yellow); GLUCOSE Negative (Negative); KETONE Negative (Negative); LEUKO ESTERASE Negative (Negative); NITRITE Negative (Negative)
[2021-02-23 21:45] LABS: BACTERIA TRACE
[2021-02-23 21:46] LABS: WBC 0-2 wbc/hpf (0-5)
[2021-02-24] MEDS ORDERED: CLINDAMYCIN HC300 MG PO (00:21)
== END 2021-02-24 00:37 | disposition home or self-care (01) ==
LOC: ED 18:09
PROVIDERS: Emergency Medicine
DX: K04.7 Periapical abscess without sinus (principal); Z88.2 Allergy status to sulfonamides; Z79.899 Other long term (current) drug therapy; Z90.49 Acquired absence of other specified parts of digestive tract; Z98.890 Other specified postprocedural states; Z90.711 Acquired absence of uterus with remaining cervical stump

== ENCOUNTER 2021-03-14 20:24 | Emergency (ER) | payer OTHER ==
[~2021-03-14] VITALS: Ht 157.4 cm; Wt 86.2 kg
[2021-03-14 22:09] LABS: BASO % 0.4 % (0.0-1.0); EOS % 0.3 % (1.0-4.0); HEMATOCRIT 41.3 % (37.0-47.0); LYMPH # 1.6 10*3/uL (1.3-4.4); LYMPH % 22.6 % (27.0-41.0); MEAN CELL VOLUME 97.9 fl (81.0-99.0); MEAN CORPUSCULAR HGB 33.6 pg (27.0-31.0); MEAN CORPUSCULAR HGB CONC 34.4 g/dl (33.0-37.0); MEAN PLATELET VOLUME 9.4 fl (9.6-12.3); MONO # 0.4 10*3/uL (0.1-1.0); MONO % 5.2 % (3.0-9.0); NEUT # 5.1 10*3/uL (2.3-7.9); NEUT % 70.9 % (47.0-73.0); PLATELET COUNT AUTOMATED 291 10*3/uL (130-400); RED BLOOD COUNT 4.22 10*6/uL (4.10-5.10); RED CELL DISTRI WIDTH 12.9 % (0-14.5); WHITE BLOOD COUNT 7.3 10*3/uL (4.8-10.8)
[2021-03-14 22:26] LABS: ALBUMIN 3.3 gm/dl (3.1-4.5); ALKALINE PHOSPHATASE 56 U/L (45-117); BUN 6 mg/dl (7-24); CHLORIDE 107 mmol/L (98-107); CREATININE 0.75 mg/dL (0.55-1.02); POTASSIUM 3.9 mmol/L (3.5-5.1); SGOT/AST 14 IU/L (3-35); SGPT/ALT 23 U/L (12-78); SODIUM 139 mmol/L (136-145); TOTAL PROTEIN 6.6 gm/dL (6.4-8.2)
[2021-03-15] MEDS ORDERED: AMOXICILLIN500 M2 PO (01:08)
== END 2021-03-15 01:28 | disposition home or self-care (01) ==
LOC: ED 20:24
PROVIDERS: Emergency Medicine
DX: K02.9 Dental caries, unspecified (principal); R22.0 Localized swelling, mass and lump, head; F17.200 Nicotine dependence, unspecified, uncomplicated; Z88.2 Allergy status to sulfonamides; Z79.2 Long term (current) use of antibiotics; Z79.899 Other long term (current) drug therapy; Z87.42 Personal history of other diseases of the female genital tract; Z87.442 Personal history of urinary calculi; Z90.49 Acquired absence of other specified parts of digestive tract; Z90.711 Acquired absence of uterus with remaining cervical stump; Z90.89 Acquired absence of other organs

== ENCOUNTER 2021-05-14 08:22 | Emergency (ER) | payer MEDICARE, MEDICAID ==
[~2021-05-14] VITALS: Ht 157.4 cm; Wt 86.6 kg
[2021-05-14 09:10] LABS: BASO % 0.7 % (0.0-1.0); EOS # 0.1 10*3/uL (0.0-0.4); EOS % 1.8 % (1.0-4.0); HEMATOCRIT 41.6 % (37.0-47.0); LYMPH # 2.5 10*3/uL (1.3-4.4); LYMPH % 44.7 % (27.0-41.0); MEAN CELL VOLUME 97.7 fl (81.0-99.0); MEAN CORPUSCULAR HGB 33.6 pg (27.0-31.0); MEAN CORPUSCULAR HGB CONC 34.4 g/dl (33.0-37.0); MEAN PLATELET VOLUME 9.6 fl (9.6-12.3); MONO # 0.4 10*3/uL (0.1-1.0); NEUT # 2.5 10*3/uL (2.3-7.9); NEUT % 44.6 % (47.0-73.0); PLATELET COUNT AUTOMATED 256 10*3/uL (130-400); RED BLOOD COUNT 4.26 10*6/uL (4.10-5.10); RED CELL DISTRI WIDTH 12.9 % (0-14.5); WHITE BLOOD COUNT 5.5 10*3/uL (4.8-10.8)
[2021-05-14 09:22] LABS: BILIRUBIN Negative (Negative); BLOOD 1+ (Negative); CLARITY Clear (Clear); COLOR Yellow (Yellow); GLUCOSE Negative (Negative); KETONE Trace (Negative); LEUKO ESTERASE 2+ (Negative); NITRITE Negative (Negative)
[2021-05-14 09:33] LABS: BACTERIA TRACE; MUCOUS TRACE
[2021-05-14 09:46] LABS: ALKALINE PHOSPHATASE 69 U/L (45-117); BUN 7 mg/dl (7-24); CHLORIDE 109 mmol/L (98-107); LIPASE 117 U/L (73-393); POTASSIUM 4.1 mmol/L (3.5-5.1); SGOT/AST 21 IU/L (3-35); SGPT/ALT 25 U/L (12-78); SODIUM 137 mmol/L (136-145); TOTAL PROTEIN 6.8 gm/dL (6.4-8.2)
[2021-05-14] MEDS ORDERED: CIPRO500 MG PO (11:30)
== END 2021-05-14 11:34 | disposition home or self-care (01) ==
LOC: ED 08:22
PROVIDERS: Family Medicine
DX: N39.0 Urinary tract infection, site not specified (principal); F17.200 Nicotine dependence, unspecified, uncomplicated; Z88.2 Allergy status to sulfonamides; Z79.899 Other long term (current) drug therapy

== ENCOUNTER 2021-06-17 09:08 | Emergency (ER) | payer OTHER, MEDICAID ==
[~2021-06-17] VITALS: Ht 157.4 cm; Wt 86.2 kg
== END 2021-06-17 11:09 | disposition left against medical advice (07) ==
LOC: ED 09:08
DX: R10.9 Unspecified abdominal pain (principal); R51.9 Headache, unspecified; Z53.21 Procedure and treatment not carried out due to patient leaving prior to being seen by health care provider

== ENCOUNTER 2021-06-24 19:53 | Emergency (ER) | payer OTHER, MEDICAID ==
[~2021-06-24] VITALS: Ht 157.4 cm; Wt 86.2 kg
[2021-06-24] MEDS ORDERED: DICYCLOMINE HCL10 MG PO (20:01)
[2021-06-24] MEDS ORDERED: STELARA90 MG/1 ML SQ (20:02)
[2021-06-24 20:23] LABS: BASO # 0.1 10*3/uL (0.0-0.1); BASO % 0.9 % (0.0-1.0); EOS # 0.1 10*3/uL (0.0-0.4); EOS % 1.6 % (1.0-4.0); HEMATOCRIT 43.6 % (37.0-47.0); LYMPH # 2.6 10*3/uL (1.3-4.4); LYMPH % 39.8 % (27.0-41.0); MEAN CORPUSCULAR HGB 32.8 pg (27.0-31.0); MEAN CORPUSCULAR HGB CONC 34.2 g/dl (33.0-37.0); MEAN PLATELET VOLUME 9.4 fl (9.6-12.3); MONO # 0.5 10*3/uL (0.1-1.0); MONO % 7.6 % (3.0-9.0); NEUT # 3.2 10*3/uL (2.3-7.9); NEUT % 49.9 % (47.0-73.0); PLATELET COUNT AUTOMATED 286 10*3/uL (130-400); RED BLOOD COUNT 4.54 10*6/uL (4.10-5.10); RED CELL DISTRI WIDTH 12.3 % (0-14.5); WHITE BLOOD COUNT 6.4 10*3/uL (4.8-10.8)
[2021-06-24 20:42] LABS: ALBUMIN 3.2 gm/dl (3.1-4.5); ALKALINE PHOSPHATASE 78 U/L (45-117); BUN 7 mg/dl (7-24); CHLORIDE 107 mmol/L (98-107); LIPASE 112 U/L (73-393); POTASSIUM 3.8 mmol/L (3.5-5.1); SGOT/AST 30 IU/L (3-35); SGPT/ALT 30 U/L (12-78); SODIUM 138 mmol/L (136-145); TOTAL PROTEIN 6.9 gm/dL (6.4-8.2)
== END 2021-06-24 22:49 | disposition home or self-care (01) ==
LOC: ED 19:53
PROVIDERS: Physician Assistant
DX: R10.9 Unspecified abdominal pain (principal); R19.7 Diarrhea, unspecified; R11.0 Nausea; F17.200 Nicotine dependence, unspecified, uncomplicated; Z88.2 Allergy status to sulfonamides; Z79.899 Other long term (current) drug therapy; Z90.49 Acquired absence of other specified parts of digestive tract; Z90.711 Acquired absence of uterus with remaining cervical stump; Z90.89 Acquired absence of other organs; Z98.890 Other specified postprocedural states

== ENCOUNTER 2021-07-20 15:08 | Emergency (ER) | payer OTHER, MEDICAID ==
[~2021-07-20] VITALS: Wt 89.4 kg
[~2021-07-20 15:08] MED LIST changes: +DICYCLOMINE HCL10 MG PO; +STELARA90 MG/1 ML SQ
[2021-07-24] MEDS ORDERED: PREDNISONE10 MG PO (13:35)
[2021-07-24] MEDS ORDERED: METRONIDAZOLE500 M1 PO (13:37)
== END 2021-07-20 19:20 | disposition left against medical advice (07) ==
LOC: ED 15:08
DX: R19.7 Diarrhea, unspecified (principal); Z53.21 Procedure and treatment not carried out due to patient leaving prior to being seen by health care provider

== ENCOUNTER 2021-08-24 10:31 | Emergency (ER) | payer OTHER, MEDICAID ==
[~2021-08-24] VITALS: Wt 88.5 kg
[~2021-08-24 10:31] MED LIST changes: +METRONIDAZOLE500 M1 PO
[2021-08-24 12:05] LABS: BASO # 0.1 10*3/uL (0.0-0.1); BASO % 0.8 % (0.0-1.0); EOS # 0.2 10*3/uL (0.0-0.4); HEMATOCRIT 47.2 % (37.0-47.0); LYMPH # 3.1 10*3/uL (1.3-4.4); LYMPH % 39.8 % (27.0-41.0); MEAN CELL VOLUME 96.1 fl (81.0-99.0); MEAN CORPUSCULAR HGB 32.6 pg (27.0-31.0); MEAN CORPUSCULAR HGB CONC 33.9 g/dl (33.0-37.0); MEAN PLATELET VOLUME 9.6 fl (9.6-12.3); MONO # 0.6 10*3/uL (0.1-1.0); MONO % 7.1 % (3.0-9.0); NEUT # 3.9 10*3/uL (2.3-7.9); PLATELET COUNT AUTOMATED 307 10*3/uL (130-400); RED BLOOD COUNT 4.91 10*6/uL (4.10-5.10); RED CELL DISTRI WIDTH 12.2 % (0-14.5); WHITE BLOOD COUNT 7.8 10*3/uL (4.8-10.8)
[2021-08-24 12:18] LABS: ALBUMIN 3.4 gm/dl (3.1-4.5); ALKALINE PHOSPHATASE 93 U/L (45-117); BUN 7 mg/dl (7-24); CHLORIDE 108 mmol/L (98-107); CREATININE 0.87 mg/dL (0.55-1.02); LIPASE 138 U/L (73-393); POTASSIUM 4.3 mmol/L (3.5-5.1); SGOT/AST 17 IU/L (3-35); SGPT/ALT 21 U/L (12-78); SODIUM 136 mmol/L (136-145); TOTAL PROTEIN 7.4 gm/dL (6.4-8.2)
[2021-08-24 12:42] LABS: BILIRUBIN Negative (Negative); BLOOD 1+ (Negative); CLARITY Clear (Clear); COLOR Yellow (Yellow); GLUCOSE Negative (Negative); KETONE Negative (Negative); LEUKO ESTERASE Negative (Negative); NITRITE Negative (Negative); UROBILINOGEN 0.2 E.U./dl (0.0-1.0)
[2021-08-24 13:03] LABS: BACTERIA TRACE
[2021-08-24] MEDS ORDERED: METRONIDAZOLE500 M1 PO (13:47)
[2021-08-24] MEDS ORDERED: CIPRO500 MG PO (13:47)
== END 2021-08-24 14:02 | disposition home or self-care (01) ==
LOC: ED 10:31
PROVIDERS: Nurse Practitioner Family
DX: K57.30 Diverticulosis of large intestine without perforation or abscess without bleeding (principal)

== ENCOUNTER 2021-09-08 10:07 | Emergency (ER) | payer OTHER, MEDICAID ==
[~2021-09-08] VITALS: Wt 86.2 kg
[2021-09-08] MEDS ORDERED: ZOFRAN4 MG PO (13:00)
== END 2021-09-08 13:07 | disposition home or self-care (01) ==
LOC: ED 10:07
DX: H57.89 Other specified disorders of eye and adnexa (principal); Z20.822 Contact with and (suspected) exposure to COVID-19; F17.200 Nicotine dependence, unspecified, uncomplicated; Z88.2 Allergy status to sulfonamides; Z79.899 Other long term (current) drug therapy

== ENCOUNTER 2021-10-15 07:38 | Emergency (ER) | payer OTHER, MEDICAID ==
[~2021-10-15] VITALS: Wt 83.0 kg
[2021-10-15 08:33] LABS: BASO % 0.6 % (0.0-1.0); EOS # 0.2 10*3/uL (0.0-0.4); EOS % 2.9 % (1.0-4.0); HEMATOCRIT 42.9 % (37.0-47.0); LYMPH # 2.4 10*3/uL (1.3-4.4); LYMPH % 38.2 % (27.0-41.0); MEAN CELL VOLUME 94.7 fl (81.0-99.0); MEAN CORPUSCULAR HGB 32.9 pg (27.0-31.0); MEAN CORPUSCULAR HGB CONC 34.7 g/dl (33.0-37.0); MEAN PLATELET VOLUME 9.6 fl (9.6-12.3); MONO # 0.4 10*3/uL (0.1-1.0); NEUT # 3.2 10*3/uL (2.3-7.9); NEUT % 51.1 % (47.0-73.0); PLATELET COUNT AUTOMATED 280 10*3/uL (130-400); RED BLOOD COUNT 4.53 10*6/uL (4.10-5.10); WHITE BLOOD COUNT 6.3 10*3/uL (4.8-10.8)
[2021-10-15 08:59] LABS: ALBUMIN 3.1 gm/dl (3.1-4.5); ALKALINE PHOSPHATASE 87 U/L (45-117); BUN 13 mg/dl (7-24); CHLORIDE 110 mmol/L (98-107); CREATININE 0.86 mg/dL (0.55-1.02); LIPASE 184 U/L (73-393); SGOT/AST 14 IU/L (3-35); SGPT/ALT 24 U/L (12-78); SODIUM 137 mmol/L (136-145); TOTAL PROTEIN 6.7 gm/dL (6.4-8.2)
[2021-10-15 09:03] LABS: BILIRUBIN Negative (Negative); BLOOD Trace-Lysed (Negative); CLARITY Clear (Clear); COLOR Yellow (Yellow); GLUCOSE Negative (Negative); KETONE Negative (Negative); LEUKO ESTERASE 2+ (Negative); NITRITE Negative (Negative); UROBILINOGEN 0.2 E.U./dl (0.0-1.0)
[2021-10-15 09:21] LABS: WBC 21-30 wbc/hpf (0-5)
[2021-10-15] MEDS ORDERED: PHENERGAN25 M3 PO (11:55)
[2021-10-15] MEDS ORDERED: HYDROCODONE-AC1 EAC1 PO (11:55)
[2021-10-15] MEDS ORDERED: PREDNISONE10 MG PO (11:55)
== END 2021-10-15 11:56 | disposition home or self-care (01) ==
LOC: ED 07:38
PROVIDERS: Emergency Medicine
DX: A59.9 Trichomoniasis, unspecified (principal); K50.90 Crohn's disease, unspecified, without complications; Z88.2 Allergy status to sulfonamides; Z79.899 Other long term (current) drug therapy; Z90.49 Acquired absence of other specified parts of digestive tract; Z98.890 Other specified postprocedural states; Z87.891 Personal history of nicotine dependence

== ENCOUNTER 2021-10-24 19:09 | Emergency (ER) | payer OTHER, MEDICAID ==
[~2021-10-24] VITALS: Ht 157.4 cm; Wt 83.9 kg
[~2021-10-24 19:09] MED LIST changes: +PHENERGAN25 M3 PO
[2021-10-24 19:54] LABS: BASO # 0.1 10*3/uL (0.0-0.1); BASO % 0.7 % (0.0-1.0); EOS # 0.2 10*3/uL (0.0-0.4); EOS % 1.7 % (1.0-4.0); HEMATOCRIT 44.7 % (37.0-47.0); LYMPH # 3.5 10*3/uL (1.3-4.4); LYMPH % 36.6 % (27.0-41.0); MEAN CELL VOLUME 95.9 fl (81.0-99.0); MEAN CORPUSCULAR HGB 32.6 pg (27.0-31.0); MONO # 0.7 10*3/uL (0.1-1.0); MONO % 7.3 % (3.0-9.0); NEUT # 5.1 10*3/uL (2.3-7.9); NEUT % 52.8 % (47.0-73.0); PLATELET COUNT AUTOMATED 309 10*3/uL (130-400); RED BLOOD COUNT 4.66 10*6/uL (4.10-5.10); RED CELL DISTRI WIDTH 13.2 % (0-14.5); WHITE BLOOD COUNT 9.6 10*3/uL (4.8-10.8)
[2021-10-24 20:10] LABS: ALKALINE PHOSPHATASE 70 U/L (45-117); BUN 9 mg/dl (7-24); CHLORIDE 103 mmol/L (98-107); CREATININE 0.94 mg/dL (0.55-1.02); LIPASE 144 U/L (73-393); POTASSIUM 3.4 mmol/L (3.5-5.1); SGOT/AST 13 IU/L (3-35); SGPT/ALT 21 U/L (12-78); SODIUM 137 mmol/L (136-145); TOTAL PROTEIN 6.5 gm/dL (6.4-8.2)
== END 2021-10-24 23:02 | disposition home or self-care (01) ==
LOC: ED 19:09
PROVIDERS: Physician Assistant
DX: K50.90 Crohn's disease, unspecified, without complications (principal); F17.200 Nicotine dependence, unspecified, uncomplicated; Z90.710 Acquired absence of both cervix and uterus; Z90.89 Acquired absence of other organs; Z90.49 Acquired absence of other specified parts of digestive tract; Z79.899 Other long term (current) drug therapy; Z88.2 Allergy status to sulfonamides

== ENCOUNTER 2021-10-30 15:42 | Emergency (ER) | payer OTHER, MEDICAID ==
[~2021-10-30] VITALS: Ht 157.4 cm; Wt 86.2 kg
[2021-10-30] MEDS ORDERED: PENICILLIN-VK500 MG PO (17:41)
== END 2021-10-30 17:58 | disposition home or self-care (01) ==
LOC: ED 15:42
DX: K02.9 Dental caries, unspecified (principal); L98.9 Disorder of the skin and subcutaneous tissue, unspecified; Z88.2 Allergy status to sulfonamides; Z79.899 Other long term (current) drug therapy; Z90.49 Acquired absence of other specified parts of digestive tract; Z98.890 Other specified postprocedural states; Z90.710 Acquired absence of both cervix and uterus; Z90.89 Acquired absence of other organs; Z87.891 Personal history of nicotine dependence

== ENCOUNTER 2021-11-10 18:33 | Emergency (ER) | payer OTHER, MEDICAID ==
[~2021-11-10] VITALS: Ht 157.4 cm; Wt 88.5 kg
[~2021-11-10 18:33] MED LIST changes: +PENICILLIN-VK500 MG PO
[2021-11-10 19:13] LABS: BASO # 0.1 10*3/uL (0.0-0.1); BASO % 0.7 % (0.0-1.0); EOS # 0.2 10*3/uL (0.0-0.4); EOS % 2.4 % (1.0-4.0); HEMATOCRIT 42.7 % (37.0-47.0); LYMPH # 2.8 10*3/uL (1.3-4.4); LYMPH % 37.1 % (27.0-41.0); MEAN CELL VOLUME 94.7 fl (81.0-99.0); MEAN CORPUSCULAR HGB CONC 34.9 g/dl (33.0-37.0); MEAN PLATELET VOLUME 9.3 fl (9.6-12.3); MONO # 0.5 10*3/uL (0.1-1.0); MONO % 5.9 % (3.0-9.0); NEUT # 4.1 10*3/uL (2.3-7.9); NEUT % 53.5 % (47.0-73.0); PLATELET COUNT AUTOMATED 304 10*3/uL (130-400); RED BLOOD COUNT 4.51 10*6/uL (4.10-5.10); RED CELL DISTRI WIDTH 12.6 % (0-14.5); WHITE BLOOD COUNT 7.6 10*3/uL (4.8-10.8)
[2021-11-10 19:34] LABS: ALKALINE PHOSPHATASE 83 U/L (45-117); BUN 11 mg/dl (7-24); CHLORIDE 106 mmol/L (98-107); CREATININE 0.84 mg/dL (0.55-1.02); LIPASE 149 U/L (73-393); POTASSIUM 3.4 mmol/L (3.5-5.1); SGOT/AST 14 IU/L (3-35); SGPT/ALT 24 U/L (12-78); SODIUM 138 mmol/L (136-145); TOTAL PROTEIN 6.7 gm/dL (6.4-8.2)
[2021-11-10] MEDS ORDERED: PREDNISONE20 M1 PO (19:48)
== END 2021-11-10 20:04 | disposition home or self-care (01) ==
LOC: ED 18:33
PROVIDERS: Internal Medicine
DX: K50.90 Crohn's disease, unspecified, without complications (principal); E87.6 Hypokalemia; Z88.2 Allergy status to sulfonamides; Z79.899 Other long term (current) drug therapy; Z90.49 Acquired absence of other specified parts of digestive tract; Z98.890 Other specified postprocedural states; Z90.89 Acquired absence of other organs; Z90.710 Acquired absence of both cervix and uterus; Z87.891 Personal history of nicotine dependence

== ENCOUNTER 2022-01-05 20:49 | Emergency (ER) | payer OTHER, MEDICAID ==
[~2022-01-05] VITALS: Ht 157.4 cm; Wt 89.4 kg
[2022-01-06 01:32] LABS: BASO # 0.1 10*3/uL (0.0-0.1); BASO % 0.9 % (0.0-1.0); EOS # 0.2 10*3/uL (0.0-0.4); HEMATOCRIT 42.9 % (37.0-47.0); LYMPH # 2.8 10*3/uL (1.3-4.4); MEAN CELL VOLUME 95.5 fl (81.0-99.0); MEAN CORPUSCULAR HGB 32.3 pg (27.0-31.0); MEAN CORPUSCULAR HGB CONC 33.8 g/dl (33.0-37.0); MEAN PLATELET VOLUME 9.4 fl (9.6-12.3); MONO # 0.6 10*3/uL (0.1-1.0); MONO % 7.6 % (3.0-9.0); NEUT # 3.7 10*3/uL (2.3-7.9); NEUT % 50.2 % (47.0-73.0); PLATELET COUNT AUTOMATED 280 10*3/uL (130-400); RED BLOOD COUNT 4.49 10*6/uL (4.10-5.10); RED CELL DISTRI WIDTH 12.5 % (0-14.5); WHITE BLOOD COUNT 7.4 10*3/uL (4.8-10.8)
[2022-01-06 01:48] LABS: ALKALINE PHOSPHATASE 76 U/L (45-117); BUN 15 mg/dl (7-24); CHLORIDE 108 mmol/L (98-107); CREATININE 0.85 mg/dL (0.55-1.02); POTASSIUM 3.5 mmol/L (3.5-5.1); SGOT/AST 18 IU/L (3-35); SGPT/ALT 17 U/L (12-78); SODIUM 140 mmol/L (136-145); TOTAL PROTEIN 6.6 gm/dL (6.4-8.2)
[2022-01-06] MEDS ORDERED: METRONIDAZOLE500 M1 PO ×2 (04:49→05:08)
[2022-01-06] MEDS ORDERED: PREDNISONE10 M1 PO (04:49)
== END 2022-01-06 05:15 | disposition home or self-care (01) ==
LOC: ED 20:49
PROVIDERS: Emergency Medicine
DX: S86.911A Strain of unspecified muscle(s) and tendon(s) at lower leg level, right leg, initial encounter (principal); S80.11XA Contusion of right lower leg, initial encounter; K50.90 Crohn's disease, unspecified, without complications; Z88.2 Allergy status to sulfonamides; Z79.899 Other long term (current) drug therapy; Z90.49 Acquired absence of other specified parts of digestive tract; Z98.890 Other specified postprocedural states; Z90.89 Acquired absence of other organs; Z87.891 Personal history of nicotine dependence; X50.1XXA Overexertion from prolonged static or awkward postures, initial encounter; Y93.89 Activity, other specified; Y92.89 Other specified places as the place of occurrence of the external cause; Y99.8 Other external cause status

== ENCOUNTER 2022-03-30 21:15 | Emergency (ER) | payer OTHER, MEDICAID ==
[~2022-03-30] VITALS: Ht 157.4 cm; Wt 86.2 kg
[~2022-03-30 21:15] MED LIST changes: +PREDNISONE10 M1 PO
[2022-03-30 21:53] LABS: BILIRUBIN Negative (Negative); BLOOD Negative (Negative); CLARITY Turbid (Clear); COLOR Dark Yellow (Yellow); GLUCOSE Negative (Negative); KETONE Trace (Negative); LEUKO ESTERASE 2+ (Negative); NITRITE Negative (Negative)
[2022-03-30 21:54] LABS: BASO # 0.1 10*3/uL (0.0-0.1); BASO % 0.6 % (0.0-1.0); EOS # 0.3 10*3/uL (0.0-0.4); EOS % 2.7 % (1.0-4.0); HEMATOCRIT 42.7 % (37.0-47.0); LYMPH # 3.8 10*3/uL (1.3-4.4); LYMPH % 39.7 % (27.0-41.0); MEAN CELL VOLUME 94.3 fl (81.0-99.0); MEAN CORPUSCULAR HGB 32.9 pg (27.0-31.0); MEAN CORPUSCULAR HGB CONC 34.9 g/dl (33.0-37.0); MEAN PLATELET VOLUME 9.7 fl (9.6-12.3); MONO # 0.7 10*3/uL (0.1-1.0); MONO % 7.1 % (3.0-9.0); NEUT # 4.7 10*3/uL (2.3-7.9); NEUT % 49.6 % (47.0-73.0); PLATELET COUNT AUTOMATED 314 10*3/uL (130-400); RED BLOOD COUNT 4.53 10*6/uL (4.10-5.10); RED CELL DISTRI WIDTH 12.8 % (0-14.5); WHITE BLOOD COUNT 9.6 10*3/uL (4.8-10.8)
[2022-03-30 22:07] LABS: BACTERIA 1+; EPITHELIAL CELLS TNTC
[2022-03-30 22:12] LABS: ALKALINE PHOSPHATASE 85 U/L (45-117); BUN 5 mg/dl (7-24); CHLORIDE 109 mmol/L (98-107); CREATININE 0.85 mg/dL (0.55-1.02); LIPASE 278 U/L (73-393); POTASSIUM 3.6 mmol/L (3.5-5.1); SGOT/AST 18 IU/L (3-35); SGPT/ALT 18 U/L (12-78); SODIUM 143 mmol/L (136-145); TOTAL PROTEIN 6.7 gm/dL (6.4-8.2)
[2022-03-30] MEDS ORDERED: FLAGYL 375375 MG PO (22:27)
[2022-03-31] MEDS ORDERED: CEFDINIR300 MG PO (01:49)
== END 2022-03-31 02:00 | disposition home or self-care (01) ==
LOC: ED 21:15
PROVIDERS: Emergency Medicine
DX: N39.0 Urinary tract infection, site not specified (principal); A59.9 Trichomoniasis, unspecified; A59.01 Trichomonal vulvovaginitis; Z88.2 Allergy status to sulfonamides; Z79.899 Other long term (current) drug therapy; Z90.49 Acquired absence of other specified parts of digestive tract; Z90.89 Acquired absence of other organs; Z90.710 Acquired absence of both cervix and uterus; Z87.891 Personal history of nicotine dependence; Z98.890 Other specified postprocedural states

== ENCOUNTER 2022-04-16 22:07 | Emergency (ER) | payer OTHER, MEDICAID ==
[~2022-04-16] VITALS: Ht 157.4 cm; Wt 86.2 kg
[~2022-04-16 22:07] MED LIST changes: +CEFDINIR300 MG PO; +FLAGYL 375375 MG PO
[2022-04-16 23:45] LABS: BASO # 0.1 10*3/uL (0.0-0.1); BASO % 0.8 % (0.0-1.0); EOS # 0.3 10*3/uL (0.0-0.4); EOS % 2.9 % (1.0-4.0); HEMATOCRIT 42.3 % (37.0-47.0); LYMPH # 3.3 10*3/uL (1.3-4.4); LYMPH % 37.5 % (27.0-41.0); MEAN CELL VOLUME 94.4 fl (81.0-99.0); MEAN PLATELET VOLUME 10.5 fl (9.6-12.3); MONO # 0.6 10*3/uL (0.1-1.0); MONO % 7.2 % (3.0-9.0); NEUT # 4.5 10*3/uL (2.3-7.9); NEUT % 51.3 % (47.0-73.0); PLATELET COUNT AUTOMATED 314 10*3/uL (130-400); RED BLOOD COUNT 4.48 10*6/uL (4.10-5.10); RED CELL DISTRI WIDTH 13.2 % (0-14.5); WHITE BLOOD COUNT 8.7 10*3/uL (4.8-10.8)
[2022-04-17 00:05] LABS: ALKALINE PHOSPHATASE 81 U/L (45-117); BUN 9 mg/dl (7-24); CHLORIDE 106 mmol/L (98-107); CREATININE 0.68 mg/dL (0.55-1.02); LIPASE 163 U/L (73-393); POTASSIUM 3.7 mmol/L (3.5-5.1); SGOT/AST 25 IU/L (3-35); SGPT/ALT 18 U/L (12-78); SODIUM 141 mmol/L (136-145); TOTAL PROTEIN 6.2 gm/dL (6.4-8.2)
[2022-04-17 01:03] LABS: BILIRUBIN Negative (Negative); BLOOD Trace-Lysed (Negative); CLARITY Clear (Clear); COLOR Yellow (Yellow); GLUCOSE Negative (Negative); KETONE Negative (Negative); LEUKO ESTERASE Negative (Negative); NITRITE Negative (Negative); PH 7.5 (4.5-8.0); SPECIFIC GRAVITY >= 1.030 (1.001-1.030)
[2022-04-17 01:14] LABS: RBC 0-2 rbc/hpf (0-2); WBC 0-2 wbc/hpf (0-5)
[2022-04-17] MEDS ORDERED: PREDNISONE10 M1 PO (03:24)
== END 2022-04-17 03:56 | disposition home or self-care (01) ==
LOC: ED 22:07
PROVIDERS: Emergency Medicine
DX: K50.90 Crohn's disease, unspecified, without complications (principal); Z88.2 Allergy status to sulfonamides; Z79.899 Other long term (current) drug therapy; Z90.89 Acquired absence of other organs; Z90.49 Acquired absence of other specified parts of digestive tract; Z98.890 Other specified postprocedural states; Z87.891 Personal history of nicotine dependence

== ENCOUNTER 2022-04-22 18:38 | Emergency (ER) | payer OTHER, MEDICAID ==
[~2022-04-22] VITALS: Wt 86.2 kg
[2022-04-22] MEDS ORDERED: Percocet 325 MG1 TAB PO (19:32)
[2022-04-22] MEDS ORDERED: PREDNISONE10 MG PO (19:32)
[2022-04-22] MEDS ORDERED: CYCLOBENZAPRINE10 MG PO (19:32)
== END 2022-04-22 20:41 | disposition home or self-care (01) ==
LOC: ED 18:38
DX: S29.019A Strain of muscle and tendon of unspecified wall of thorax, initial encounter (principal); Z88.2 Allergy status to sulfonamides; Z79.899 Other long term (current) drug therapy; Z90.49 Acquired absence of other specified parts of digestive tract; Z90.89 Acquired absence of other organs; Z90.710 Acquired absence of both cervix and uterus; Z98.890 Other specified postprocedural states; Z87.891 Personal history of nicotine dependence; X58.XXXA Exposure to other specified factors, initial encounter; Y93.89 Activity, other specified; Y92.89 Other specified places as the place of occurrence of the external cause; Y99.8 Other external cause status

== ENCOUNTER 2022-04-29 18:44 | Emergency (ER) | payer OTHER, MEDICAID ==
[~2022-04-29] VITALS: Wt 86.2 kg
[~2022-04-29 18:44] MED LIST changes: +CYCLOBENZAPRINE10 MG PO; +Percocet 325 MG1 TAB PO
[2022-04-29 21:03] LABS: BILIRUBIN Negative (Negative); BLOOD Trace-Intact (Negative); CLARITY Cloudy (Clear); COLOR Yellow (Yellow); GLUCOSE Negative (Negative); KETONE Negative (Negative); LEUKO ESTERASE Trace (Negative); NITRITE Negative (Negative); PH 6.5 (4.5-8.0); SPECIFIC GRAVITY 1.015 (1.001-1.030)
[2022-04-29 21:11] LABS: BASO % 0.4 % (0.0-1.0); EOS # 0.2 10*3/uL (0.0-0.4); EOS % 1.7 % (1.0-4.0); HEMATOCRIT 43.6 % (37.0-47.0); LYMPH # 3.3 10*3/uL (1.3-4.4); MEAN CELL VOLUME 95.4 fl (81.0-99.0); MEAN CORPUSCULAR HGB 32.6 pg (27.0-31.0); MEAN CORPUSCULAR HGB CONC 34.2 g/dl (33.0-37.0); MEAN PLATELET VOLUME 8.9 fl (9.6-12.3); MONO # 0.7 10*3/uL (0.1-1.0); MONO % 6.2 % (3.0-9.0); NEUT % 62.1 % (47.0-73.0); PLATELET COUNT AUTOMATED 312 10*3/uL (130-400); RED BLOOD COUNT 4.57 10*6/uL (4.10-5.10); WHITE BLOOD COUNT 11.2 10*3/uL (4.8-10.8)
[2022-04-29 21:31] LABS: BUN 7 mg/dl (7-24); CHLORIDE 107 mmol/L (98-107); CREATININE 0.76 mg/dL (0.55-1.02); POTASSIUM 3.5 mmol/L (3.5-5.1); SODIUM 139 mmol/L (136-145)
[2022-04-29 21:55] LABS: BACTERIA 2+; EPITHELIAL CELLS 16-20; RBC 16-20 rbc/hpf (0-2)
== END 2022-04-29 23:10 | disposition home or self-care (01) ==
LOC: ED 18:44
PROVIDERS: Emergency Medicine
DX: R10.31 Right lower quadrant pain (principal); Z88.2 Allergy status to sulfonamides; Z79.899 Other long term (current) drug therapy; Z90.49 Acquired absence of other specified parts of digestive tract; Z98.890 Other specified postprocedural states; Z90.89 Acquired absence of other organs; F17.200 Nicotine dependence, unspecified, uncomplicated

== ENCOUNTER 2022-05-21 18:41 | Emergency (ER) | payer OTHER, MEDICAID ==
[~2022-05-21] VITALS: Ht 157.4 cm; Wt 86.2 kg
== END 2022-05-21 20:56 | disposition left against medical advice (07) ==
LOC: ED 18:41
DX: Z53.21 Procedure and treatment not carried out due to patient leaving prior to being seen by health care provider (principal)

== ENCOUNTER 2022-05-23 19:02 | Emergency (ER) | payer OTHER, MEDICAID ==
[~2022-05-23] VITALS: Ht 157.4 cm; Wt 86.2 kg
[2022-05-23 20:12] LABS: BASO # 0.1 10*3/uL (0.0-0.1); BASO % 0.7 % (0.0-1.0); EOS # 0.2 10*3/uL (0.0-0.4); HEMATOCRIT 42.9 % (37.0-47.0); LYMPH # 3.2 10*3/uL (1.3-4.4); LYMPH % 36.6 % (27.0-41.0); MEAN CORPUSCULAR HGB 33.1 pg (27.0-31.0); MEAN CORPUSCULAR HGB CONC 34.5 g/dl (33.0-37.0); MONO # 0.6 10*3/uL (0.1-1.0); MONO % 6.8 % (3.0-9.0); NEUT # 4.7 10*3/uL (2.3-7.9); NEUT % 53.6 % (47.0-73.0); PLATELET COUNT AUTOMATED 300 10*3/uL (130-400); RED BLOOD COUNT 4.47 10*6/uL (4.10-5.10); RED CELL DISTRI WIDTH 12.7 % (0-14.5); WHITE BLOOD COUNT 8.7 10*3/uL (4.8-10.8)
[2022-05-23 20:23] LABS: ACT PARTIAL THROMBO TIME 27.4 SECONDS (20.0-32.1); INTERNATIONAL NORM RATIO 0.9 (2.0-3.5)
[2022-05-23 20:38] LABS: ALKALINE PHOSPHATASE 81 U/L (45-117); BUN 7 mg/dl (7-24); CHLORIDE 110 mmol/L (98-107); CREATININE 0.84 mg/dL (0.55-1.02); LIPASE 137 U/L (73-393); POTASSIUM 3.8 mmol/L (3.5-5.1); SGOT/AST 15 IU/L (3-35); SGPT/ALT 19 U/L (12-78); SODIUM 142 mmol/L (136-145); TOTAL PROTEIN 6.6 gm/dL (6.4-8.2)
[2022-05-24] MEDS ORDERED: METRONIDAZOLE500 M1 PO (01:16)
[2022-05-24] MEDS ORDERED: PREDNISONE20 M1 PO (01:16)
== END 2022-05-24 01:26 | disposition home or self-care (01) ==
LOC: ED 19:02
PROVIDERS: Family Medicine
DX: K50.90 Crohn's disease, unspecified, without complications (principal); Z88.2 Allergy status to sulfonamides; Z79.899 Other long term (current) drug therapy; Z90.49 Acquired absence of other specified parts of digestive tract; Z90.89 Acquired absence of other organs; Z90.710 Acquired absence of both cervix and uterus; Z98.890 Other specified postprocedural states; Z87.891 Personal history of nicotine dependence

== ENCOUNTER 2022-05-31 19:36 | Emergency (ER) | payer OTHER, MEDICAID ==
[~2022-05-31] VITALS: Ht 157.4 cm; Wt 86.2 kg
[2022-05-31] MEDS ORDERED: CYCLOBENZAPRINE5 M3 PO (22:02)
[2022-05-31] MEDS ORDERED: NAPROSYN500 MG PO (22:02)
== END 2022-05-31 21:56 | disposition home or self-care (01) ==
LOC: ED 19:36
DX: M25.511 Pain in right shoulder (principal); Z88.2 Allergy status to sulfonamides; Z79.899 Other long term (current) drug therapy; Z90.49 Acquired absence of other specified parts of digestive tract; Z98.890 Other specified postprocedural states; Z90.710 Acquired absence of both cervix and uterus; Z87.891 Personal history of nicotine dependence

== ENCOUNTER 2022-07-16 12:20 | Emergency (ER) | payer MEDICARE ==
[~2022-07-16] VITALS: Ht 157.4 cm; Wt 86.2 kg
[~2022-07-16 12:20] MED LIST changes: +CYCLOBENZAPRINE5 M3 PO
[2022-07-16] MEDS ORDERED: STELARA90 MG/1 ML SQ (12:33)
[2022-07-16 13:22] LABS: BASO % 0.4 % (0.0-1.0); EOS # 0.2 10*3/uL (0.0-0.4); HEMATOCRIT 41.8 % (37.0-47.0); LYMPH # 2.4 10*3/uL (1.3-4.4); LYMPH % 31.2 % (27.0-41.0); MEAN CELL VOLUME 95.4 fl (81.0-99.0); MEAN CORPUSCULAR HGB 32.6 pg (27.0-31.0); MEAN CORPUSCULAR HGB CONC 34.2 g/dl (33.0-37.0); MEAN PLATELET VOLUME 9.5 fl (9.6-12.3); MONO # 0.5 10*3/uL (0.1-1.0); MONO % 6.2 % (3.0-9.0); NEUT # 4.6 10*3/uL (2.3-7.9); NEUT % 60.1 % (47.0-73.0); PLATELET COUNT AUTOMATED 280 10*3/uL (130-400); RED BLOOD COUNT 4.38 10*6/uL (4.10-5.10); RED CELL DISTRI WIDTH 12.7 % (0-14.5); WHITE BLOOD COUNT 7.6 10*3/uL (4.8-10.8)
[2022-07-16 13:28] LABS: BILIRUBIN Negative (Negative); BLOOD Trace-Lysed (Negative); CLARITY Cloudy (Clear); COLOR Dark Yellow (Yellow); GLUCOSE Negative (Negative); KETONE Trace (Negative); LEUKO ESTERASE 1+ (Negative); NITRITE Negative (Negative); PH 5.5 (4.5-8.0); SPECIFIC GRAVITY >= 1.030 (1.001-1.030)
[2022-07-16 13:39] LABS: EPITHELIAL CELLS 16-20; MUCOUS 1+
[2022-07-16 13:41] LABS: ALKALINE PHOSPHATASE 79 U/L (45-117); BUN 9 mg/dl (7-24); CHLORIDE 107 mmol/L (98-107); LIPASE 150 U/L (73-393); POTASSIUM 3.6 mmol/L (3.5-5.1); SGOT/AST 14 IU/L (3-35); SGPT/ALT 18 U/L (12-78); SODIUM 138 mmol/L (136-145); TOTAL PROTEIN 6.4 gm/dL (6.4-8.2)
[2022-07-16 13:42] LABS: BACTERIA 2+; CALCIUM OXALATE CRYSTALS Trace
[2022-07-16] MEDS ORDERED: MEDROL DOSEPAK4 MG PO (14:49)
[2022-07-16] MEDS ORDERED: ONDANSETRON4 MG SL (14:49)
[2022-07-16] MEDS ORDERED: METRONIDAZOLE500 M1 PO (14:49)
== END 2022-07-16 15:02 | disposition home or self-care (01) ==
LOC: ED 12:20
PROVIDERS: Nurse Practitioner Family
DX: K50.90 Crohn's disease, unspecified, without complications (principal); A59.9 Trichomoniasis, unspecified; R19.7 Diarrhea, unspecified; F17.200 Nicotine dependence, unspecified, uncomplicated; Z88.2 Allergy status to sulfonamides; Z79.899 Other long term (current) drug therapy; Z90.49 Acquired absence of other specified parts of digestive tract; Z90.710 Acquired absence of both cervix and uterus; Z98.890 Other specified postprocedural states

== ENCOUNTER 2022-08-17 19:06 | Emergency (ER) | payer MEDICARE ==
[~2022-08-17] VITALS: Ht 157.4 cm; Wt 86.2 kg
[~2022-08-17 19:06] MED LIST changes: +ONDANSETRON4 MG SL
[2022-08-17 21:34] LABS: BASO # 0.1 10*3/uL (0.0-0.1); BASO % 0.8 % (0.0-1.0); EOS # 0.2 10*3/uL (0.0-0.4); EOS % 2.4 % (1.0-4.0); LYMPH # 3.3 10*3/uL (1.3-4.4); MEAN CELL VOLUME 95.2 fl (81.0-99.0); MEAN CORPUSCULAR HGB 32.7 pg (27.0-31.0); MEAN CORPUSCULAR HGB CONC 34.3 g/dl (33.0-37.0); MEAN PLATELET VOLUME 9.3 fl (9.6-12.3); MONO # 0.6 10*3/uL (0.1-1.0); MONO % 7.5 % (3.0-9.0); NEUT # 4.2 10*3/uL (2.3-7.9); NEUT % 50.1 % (47.0-73.0); PLATELET COUNT AUTOMATED 318 10*3/uL (130-400); RED BLOOD COUNT 4.62 10*6/uL (4.10-5.10); RED CELL DISTRI WIDTH 12.8 % (0-14.5); WHITE BLOOD COUNT 8.4 10*3/uL (4.8-10.8)
[2022-08-17 22:07] LABS: ALKALINE PHOSPHATASE 82 U/L (46-116); BUN < 5 mg/dl (9-23); CHLORIDE 105 mmol/L (98-107); CREATININE 0.76 mg/dL (0.55-1.02); LIPASE 35 U/L (12-53); POTASSIUM 3.6 mmol/L (3.4-5.1); SGPT/ALT 13 U/L (10-49); SODIUM 141 mmol/L (136-145); TOTAL PROTEIN 6.6 gm/dL (6.0-8.0)
[2022-08-17 22:59] LABS: BILIRUBIN Negative (Negative); BLOOD Trace-Lysed (Negative); CLARITY Clear (Clear); COLOR Yellow (Yellow); GLUCOSE Negative (Negative); KETONE Negative (Negative); LEUKO ESTERASE Negative (Negative); NITRITE Negative (Negative); PH 6.5 (4.5-8.0); SPECIFIC GRAVITY >= 1.030 (1.001-1.030)
[2022-08-17] MEDS ORDERED: CIPRO500 MG PO (23:16)
[2022-08-17] MEDS ORDERED: METRONIDAZOLE500 M1 PO (23:16)
[2022-08-17 23:37] LABS: WBC 0-2 wbc/hpf (0-5)
== END 2022-08-18 00:01 | disposition home or self-care (01) ==
LOC: ED 19:06
PROVIDERS: Physician Assistant
DX: K50.90 Crohn's disease, unspecified, without complications (principal); Z88.2 Allergy status to sulfonamides; Z90.49 Acquired absence of other specified parts of digestive tract; Z90.89 Acquired absence of other organs; Z90.710 Acquired absence of both cervix and uterus; Z98.890 Other specified postprocedural states; F17.200 Nicotine dependence, unspecified, uncomplicated

== ENCOUNTER 2022-08-24 21:51 | Emergency (ER) | payer MEDICARE ==
[~2022-08-24] VITALS: Ht 157.4 cm; Wt 86.2 kg
[2022-08-24 23:37] LABS: BASO # 0.1 10*3/uL (0.0-0.1); BASO % 0.6 % (0.0-1.0); EOS # 0.2 10*3/uL (0.0-0.4); EOS % 2.4 % (1.0-4.0); HEMATOCRIT 41.9 % (37.0-47.0); LYMPH # 2.7 10*3/uL (1.3-4.4); LYMPH % 32.7 % (27.0-41.0); MEAN CELL VOLUME 93.9 fl (81.0-99.0); MEAN CORPUSCULAR HGB 33.2 pg (27.0-31.0); MEAN CORPUSCULAR HGB CONC 35.3 g/dl (33.0-37.0); MEAN PLATELET VOLUME 9.2 fl (9.6-12.3); MONO # 0.5 10*3/uL (0.1-1.0); MONO % 6.1 % (3.0-9.0); NEUT # 4.9 10*3/uL (2.3-7.9); PLATELET COUNT AUTOMATED 327 10*3/uL (130-400); RED BLOOD COUNT 4.46 10*6/uL (4.10-5.10); RED CELL DISTRI WIDTH 12.7 % (0-14.5); WHITE BLOOD COUNT 8.4 10*3/uL (4.8-10.8)
[2022-08-24 23:50] LABS: ALKALINE PHOSPHATASE 75 U/L (46-116); BUN 8 mg/dl (9-23); CHLORIDE 108 mmol/L (98-107); CREATININE 0.68 mg/dL (0.55-1.02); LIPASE 66 U/L (12-53); POTASSIUM 3.6 mmol/L (3.4-5.1); SGPT/ALT 11 U/L (10-49); SODIUM 138 mmol/L (136-145); TOTAL PROTEIN 6.4 gm/dL (6.0-8.0)
[2022-08-25] MEDS ORDERED: PREDNISONE20 M1 PO (01:53)
== END 2022-08-25 02:10 | disposition home or self-care (01) ==
LOC: ED 21:51
PROVIDERS: Internal Medicine
DX: R19.7 Diarrhea, unspecified (principal); Z90.49 Acquired absence of other specified parts of digestive tract; Z90.710 Acquired absence of both cervix and uterus; Z90.89 Acquired absence of other organs; Z98.51 Tubal ligation status; F17.200 Nicotine dependence, unspecified, uncomplicated; Z88.2 Allergy status to sulfonamides

== ENCOUNTER → 2022-09-13 | Outpatient (CLI) | payer MEDICARE ==
[2022-09-15 16:08] LABS: 5-HIAA, URINE 2.5 mg/L (Undefined); 5-HIAA, URINE, 24 HR 3.1 mg/24 hr (0.0-14.9)
== END | disposition home or self-care (01) ==
LOC: LAB 09-11 09:15
PROVIDERS: Student in an Organized Health Care Education/Training Program; ATTEND Internal Medicine
DX: K52.9 Noninfective gastroenteritis and colitis, unspecified (principal); A04.72 Enterocolitis due to Clostridium difficile, not specified as recurrent

== ENCOUNTER → 2022-09-21 | Outpatient (CLI) | payer MEDICARE | END | disposition home or self-care (01) | LOC: RAD 07:43 | PROVIDERS: ATTEND Internal Medicine | DX: M25.511 Pain in right shoulder (principal); M40.40 Postural lordosis, site unspecified ==

== ENCOUNTER 2022-10-01 21:00 | Emergency (ER) | payer MEDICARE ==
[~2022-10-01] VITALS: Ht 157.4 cm; Wt 81.6 kg
[2022-10-01 22:13] LABS: BASO # 0.1 10*3/uL (0.0-0.1); BASO % 0.5 % (0.0-1.0); EOS # 0.3 10*3/uL (0.0-0.4); HEMATOCRIT 44.6 % (37.0-47.0); LYMPH # 3.2 10*3/uL (1.3-4.4); LYMPH % 34.3 % (27.0-41.0); MEAN CELL VOLUME 98.7 fl (81.0-99.0); MEAN CORPUSCULAR HGB 33.2 pg (27.0-31.0); MEAN CORPUSCULAR HGB CONC 33.6 g/dl (33.0-37.0); MEAN PLATELET VOLUME 8.9 fl (9.6-12.3); MONO # 0.7 10*3/uL (0.1-1.0); MONO % 7.6 % (3.0-9.0); NEUT % 54.3 % (47.0-73.0); PLATELET COUNT AUTOMATED 277 10*3/uL (130-400); RED BLOOD COUNT 4.52 10*6/uL (4.10-5.10); RED CELL DISTRI WIDTH 13.1 % (0-14.5); WHITE BLOOD COUNT 9.3 10*3/uL (4.8-10.8)
[2022-10-01 22:29] LABS: ALKALINE PHOSPHATASE 68 U/L (46-116); BUN 8 mg/dl (9-23); CHLORIDE 103 mmol/L (98-107); POTASSIUM 3.6 mmol/L (3.4-5.1); SGPT/ALT 14 U/L (10-49); TOTAL PROTEIN 6.1 gm/dL (6.0-8.0)
[2022-10-01] MEDS ORDERED: COMPAZINE10 M1 PO (23:33)
== END 2022-10-02 00:15 | disposition home or self-care (01) ==
LOC: ED 21:00
PROVIDERS: Emergency Medicine
DX: K50.90 Crohn's disease, unspecified, without complications (principal); R19.7 Diarrhea, unspecified; Z88.2 Allergy status to sulfonamides; Z90.49 Acquired absence of other specified parts of digestive tract; Z90.89 Acquired absence of other organs; Z90.710 Acquired absence of both cervix and uterus; Z98.890 Other specified postprocedural states; F17.200 Nicotine dependence, unspecified, uncomplicated

== ENCOUNTER 2022-11-11 20:29 | Emergency (ER) | payer MEDICARE ==
[~2022-11-11] VITALS: Ht 157.4 cm; Wt 81.6 kg
[~2022-11-11 20:29] MED LIST changes: +COMPAZINE10 M1 PO
[2022-11-11] MEDS ORDERED: PHENERGAN25 M3 PO (22:12)
== END 2022-11-11 22:20 | disposition home or self-care (01) ==
LOC: ED 20:29
DX: M25.561 Pain in right knee (principal); K50.90 Crohn's disease, unspecified, without complications; Z88.2 Allergy status to sulfonamides; Z90.49 Acquired absence of other specified parts of digestive tract; Z90.89 Acquired absence of other organs; Z90.710 Acquired absence of both cervix and uterus; Z98.890 Other specified postprocedural states; Z87.891 Personal history of nicotine dependence

== ENCOUNTER 2022-11-24 21:19 | Emergency (ER) | payer MEDICARE ==
[~2022-11-24] VITALS: Ht 157.4 cm; Wt 81.6 kg
[2022-11-25 00:11] LABS: BASO # 0.1 10*3/uL (0.0-0.1); EOS # 0.3 10*3/uL (0.0-0.4); EOS % 3.5 % (1.0-4.0); HEMATOCRIT 41.8 % (37.0-47.0); LYMPH # 3.1 10*3/uL (1.3-4.4); MEAN CELL VOLUME 97.7 fl (81.0-99.0); MEAN CORPUSCULAR HGB 33.2 pg (27.0-31.0); MEAN PLATELET VOLUME 9.2 fl (9.6-12.3); MONO # 0.5 10*3/uL (0.1-1.0); NEUT # 4.2 10*3/uL (2.3-7.9); NEUT % 51.3 % (47.0-73.0); PLATELET COUNT AUTOMATED 275 10*3/uL (130-400); RED BLOOD COUNT 4.28 10*6/uL (4.10-5.10); RED CELL DISTRI WIDTH 12.9 % (0-14.5); WHITE BLOOD COUNT 8.2 10*3/uL (4.8-10.8)
[2022-11-25 00:27] LABS: ALKALINE PHOSPHATASE 71 U/L (46-116); BUN 7 mg/dl (9-23); CHLORIDE 106 mmol/L (98-107); SGPT/ALT 9 U/L (10-49)
[2022-11-25 02:48] LABS: BILIRUBIN Negative (Negative); BLOOD 1+ (Negative); CLARITY Clear (Clear); COLOR Yellow (Yellow); GLUCOSE Negative (Negative); KETONE Negative (Negative); LEUKO ESTERASE Negative (Negative); NITRITE Negative (Negative); PH 5.5 (4.5-8.0); UROBILINOGEN 0.2 E.U./dl (0.0-1.0)
[2022-11-25 03:08] LABS: WBC 0-2 wbc/hpf (0-5)
[2022-11-26] MEDS ORDERED: METRONIDAZOLE500 M1 PO (22:59)
[2022-11-26] MEDS ORDERED: PREDNISONE20 M1 PO (22:59)
[2022-11-26] MEDS ORDERED: CIPRO500 MG PO (22:59)
== END 2022-11-25 04:43 | disposition home or self-care (01) ==
LOC: ED 21:19
PROVIDERS: Emergency Medicine
DX: K50.90 Crohn's disease, unspecified, without complications (principal); E87.6 Hypokalemia; F32.A Depression, unspecified; R19.7 Diarrhea, unspecified; J45.909 Unspecified asthma, uncomplicated; Z90.49 Acquired absence of other specified parts of digestive tract; Z88.2 Allergy status to sulfonamides; Z90.710 Acquired absence of both cervix and uterus; Z90.89 Acquired absence of other organs; Z98.890 Other specified postprocedural states; F17.200 Nicotine dependence, unspecified, uncomplicated; F12.90 Cannabis use, unspecified, uncomplicated; Z79.899 Other long term (current) drug therapy

== ENCOUNTER 2022-11-26 20:53 | Emergency (ER) | payer MEDICARE ==
[~2022-11-26] VITALS: Ht 157.4 cm; Wt 86.2 kg
[2022-11-26] MEDS ORDERED: METRONIDAZOLE500 M1 PO (22:59)
[2022-11-26] MEDS ORDERED: CIPRO500 MG PO (22:59)
[2022-11-26] MEDS ORDERED: PREDNISONE20 M1 PO (22:59)
== END 2022-11-26 23:19 | disposition home or self-care (01) ==
LOC: ED 20:53
DX: K50.90 Crohn's disease, unspecified, without complications (principal); Z88.2 Allergy status to sulfonamides; Z90.49 Acquired absence of other specified parts of digestive tract; Z90.89 Acquired absence of other organs; Z90.710 Acquired absence of both cervix and uterus; Z98.890 Other specified postprocedural states

== ENCOUNTER 2022-12-14 21:10 | Emergency (ER) | payer MEDICARE ==
[~2022-12-14] VITALS: Ht 157.4 cm; Wt 86.2 kg
[2022-12-14 23:12] LABS: BASO # 0.1 10*3/uL (0.0-0.1); BASO % 0.6 % (0.0-1.0); EOS # 0.2 10*3/uL (0.0-0.4); EOS % 2.7 % (1.0-4.0); LYMPH # 2.9 10*3/uL (1.3-4.4); LYMPH % 37.5 % (27.0-41.0); MEAN CELL VOLUME 95.8 fl (81.0-99.0); MEAN CORPUSCULAR HGB 33.6 pg (27.0-31.0); MEAN CORPUSCULAR HGB CONC 35.1 g/dl (33.0-37.0); MEAN PLATELET VOLUME 9.3 fl (9.6-12.3); MONO # 0.5 10*3/uL (0.1-1.0); MONO % 5.7 % (3.0-9.0); NEUT # 4.2 10*3/uL (2.3-7.9); NEUT % 53.2 % (47.0-73.0); PLATELET COUNT AUTOMATED 294 10*3/uL (130-400); RED BLOOD COUNT 4.28 10*6/uL (4.10-5.10); RED CELL DISTRI WIDTH 12.7 % (0-14.5); WHITE BLOOD COUNT 7.8 10*3/uL (4.8-10.8)
[2022-12-14 23:28] LABS: ALKALINE PHOSPHATASE 71 U/L (46-116); BUN 5 mg/dl (9-23); CHLORIDE 108 mmol/L (98-107); LIPASE 46 U/L (12-53); POTASSIUM 3.3 mmol/L (3.4-5.1); SGPT/ALT 7 U/L (10-49)
[2022-12-15 00:33] LABS: BILIRUBIN Negative (Negative); BLOOD 1+ (Negative); CLARITY Cloudy (Clear); COLOR Dark Yellow (Yellow); GLUCOSE Negative (Negative); KETONE Negative (Negative); LEUKO ESTERASE Trace (Negative); NITRITE Negative (Negative); SPECIFIC GRAVITY >= 1.030 (1.001-1.030)
[2022-12-15 00:39] LABS: CALCIUM OXALATE CRYSTALS 2+; MUCOUS 1+
[2022-12-15] MEDS ORDERED: METRONIDAZOLE500 M1 PO (04:40)
[2022-12-15] MEDS ORDERED: CIPRO500 MG PO (04:40)
[2022-12-15] MEDS ORDERED: PREDNISONE10 M1 PO (04:40)
[2022-12-15] MEDS ORDERED: TRAMADOL HCL50 MG PO (04:56)
== END 2022-12-15 04:49 | disposition home or self-care (01) ==
LOC: ED 21:10
PROVIDERS: Emergency Medicine
DX: K50.10 Crohn's disease of large intestine without complications (principal); R10.9 Unspecified abdominal pain; R91.1 Solitary pulmonary nodule; F32.A Depression, unspecified; J45.909 Unspecified asthma, uncomplicated; Z88.8 Allergy status to other drugs, medicaments and biological substances; Z88.2 Allergy status to sulfonamides; E87.6 Hypokalemia; Z90.49 Acquired absence of other specified parts of digestive tract; Z90.89 Acquired absence of other organs; Z90.710 Acquired absence of both cervix and uterus; Z98.890 Other specified postprocedural states; F17.200 Nicotine dependence, unspecified, uncomplicated; F12.90 Cannabis use, unspecified, uncomplicated

== ENCOUNTER 2022-12-29 19:50 | Emergency (ER) | payer MEDICARE ==
[~2022-12-29] VITALS: Ht 157.4 cm; Wt 86.2 kg
[2022-12-29 20:24] LABS: BILIRUBIN Negative (Negative); BLOOD 2+ (Negative); CLARITY Clear (Clear); COLOR Dark Yellow (Yellow); GLUCOSE Negative (Negative); KETONE Trace (Negative); LEUKO ESTERASE Trace (Negative); NITRITE Negative (Negative); PH 5.5 (4.5-8.0); SPECIFIC GRAVITY 1.025 (1.001-1.030)
[2022-12-29 20:30] LABS: BASO # 0.1 10*3/uL (0.0-0.1); EOS # 0.1 10*3/uL (0.0-0.4); EOS % 1.7 % (1.0-4.0); HEMATOCRIT 43.7 % (37.0-47.0); LYMPH % 39.2 % (27.0-41.0); MEAN CELL VOLUME 96.5 fl (81.0-99.0); MEAN CORPUSCULAR HGB 33.3 pg (27.0-31.0); MEAN CORPUSCULAR HGB CONC 34.6 g/dl (33.0-37.0); MEAN PLATELET VOLUME 9.4 fl (9.6-12.3); MONO # 0.5 10*3/uL (0.1-1.0); MONO % 6.9 % (3.0-9.0); NEUT # 3.9 10*3/uL (2.3-7.9); NEUT % 50.8 % (47.0-73.0); PLATELET COUNT AUTOMATED 307 10*3/uL (130-400); RED BLOOD COUNT 4.53 10*6/uL (4.10-5.10); RED CELL DISTRI WIDTH 12.5 % (0-14.5); WHITE BLOOD COUNT 7.7 10*3/uL (4.8-10.8)
[2022-12-29 20:31] LABS: RBC 16-20 rbc/hpf (0-2)
[2022-12-29 20:32] LABS: BACTERIA 1+; MUCOUS 2+
[2022-12-29 20:47] LABS: ALKALINE PHOSPHATASE 80 U/L (46-116); BUN 6 mg/dl (9-23); CHLORIDE 103 mmol/L (98-107); POTASSIUM 3.1 mmol/L (3.4-5.1); SGPT/ALT 13 U/L (10-49); TOTAL PROTEIN 6.5 gm/dL (6.0-8.0)
== END 2022-12-29 21:05 | disposition home or self-care (01) ==
LOC: ED 19:50
PROVIDERS: Internal Medicine
DX: K50.90 Crohn's disease, unspecified, without complications (principal); R10.9 Unspecified abdominal pain; E87.6 Hypokalemia; F32.A Depression, unspecified; J45.909 Unspecified asthma, uncomplicated; Z88.8 Allergy status to other drugs, medicaments and biological substances; Z88.2 Allergy status to sulfonamides; Z90.49 Acquired absence of other specified parts of digestive tract; Z90.89 Acquired absence of other organs; Z90.710 Acquired absence of both cervix and uterus; Z98.890 Other specified postprocedural states; F17.200 Nicotine dependence, unspecified, uncomplicated; F12.90 Cannabis use, unspecified, uncomplicated

== ENCOUNTER 2023-01-08 19:28 | Emergency (ER) | payer MEDICARE ==
[~2023-01-08] VITALS: Ht 157.4 cm; Wt 72.6 kg
== END 2023-01-08 20:00 | disposition home or self-care (01) ==
LOC: ED 19:28
DX: S80.861A Insect bite (nonvenomous), right lower leg, initial encounter (principal); F17.200 Nicotine dependence, unspecified, uncomplicated; Z88.2 Allergy status to sulfonamides; Z90.49 Acquired absence of other specified parts of digestive tract; Z98.890 Other specified postprocedural states; Z90.710 Acquired absence of both cervix and uterus; Z90.89 Acquired absence of other organs; W57.XXXA Bitten or stung by nonvenomous insect and other nonvenomous arthropods, initial encounter; Y93.89 Activity, other specified; Y92.89 Other specified places as the place of occurrence of the external cause; Y99.8 Other external cause status

== ENCOUNTER 2023-01-21 20:01 | Emergency (ER) | payer MEDICARE ==
[~2023-01-21] VITALS: Ht 157.4 cm; Wt 77.1 kg
[2023-01-21 20:30] LABS: BASO # 0.1 10*3/uL (0.0-0.1); BASO % 0.9 % (0.0-1.0); EOS # 0.3 10*3/uL (0.0-0.4); EOS % 3.3 % (1.0-4.0); HEMATOCRIT 44.4 % (37.0-47.0); LYMPH # 3.1 10*3/uL (1.3-4.4); LYMPH % 38.4 % (27.0-41.0); MEAN CELL VOLUME 97.4 fl (81.0-99.0); MEAN CORPUSCULAR HGB CONC 34.9 g/dl (33.0-37.0); MEAN PLATELET VOLUME 9.4 fl (9.6-12.3); MONO # 0.5 10*3/uL (0.1-1.0); MONO % 6.3 % (3.0-9.0); NEUT # 4.1 10*3/uL (2.3-7.9); PLATELET COUNT AUTOMATED 280 10*3/uL (130-400); RED BLOOD COUNT 4.56 10*6/uL (4.10-5.10); RED CELL DISTRI WIDTH 12.8 % (0-14.5)
[2023-01-21 20:53] LABS: ALKALINE PHOSPHATASE 84 U/L (46-116); CHLORIDE 105 mmol/L (98-107); POTASSIUM 3.7 mmol/L (3.4-5.1); SGPT/ALT 10 U/L (10-49); TOTAL PROTEIN 6.3 gm/dL (6.0-8.0)
[2023-01-21 21:02] LABS: BUN < 5 mg/dl (9-23)
[2023-01-21] MEDS ORDERED: PREDNISONE10 MG PO (21:23)
== END 2023-01-21 21:29 | disposition home or self-care (01) ==
LOC: ED 20:01
PROVIDERS: Student in an Organized Health Care Education/Training Program
DX: R10.30 Lower abdominal pain, unspecified (principal); R10.84 Generalized abdominal pain; R11.2 Nausea with vomiting, unspecified; R19.7 Diarrhea, unspecified; F32.A Depression, unspecified; J45.909 Unspecified asthma, uncomplicated; Z88.8 Allergy status to other drugs, medicaments and biological substances; Z88.2 Allergy status to sulfonamides; Z90.49 Acquired absence of other specified parts of digestive tract; Z90.89 Acquired absence of other organs; Z98.890 Other specified postprocedural states; Z90.710 Acquired absence of both cervix and uterus; F17.200 Nicotine dependence, unspecified, uncomplicated; F12.90 Cannabis use, unspecified, uncomplicated

== ENCOUNTER 2023-02-03 21:26 | Emergency (ER) | payer MEDICARE ==
[~2023-02-03] VITALS: Ht 157.4 cm; Wt 74.8 kg
[2023-02-03 22:13] LABS: BASO # 0.1 10*3/uL (0.0-0.1); BASO % 0.7 % (0.0-1.0); BILIRUBIN Negative (Negative); BLOOD 1+ (Negative); CLARITY Clear (Clear); COLOR Yellow (Yellow); EOS # 0.2 10*3/uL (0.0-0.4); EOS % 2.4 % (1.0-4.0); GLUCOSE Negative (Negative); KETONE Negative (Negative); LEUKO ESTERASE Negative (Negative); LYMPH # 3.6 10*3/uL (1.3-4.4); LYMPH % 40.7 % (27.0-41.0); MEAN CELL VOLUME 96.2 fl (81.0-99.0); MEAN CORPUSCULAR HGB 33.1 pg (27.0-31.0); MEAN CORPUSCULAR HGB CONC 34.4 g/dl (33.0-37.0); MEAN PLATELET VOLUME 9.4 fl (9.6-12.3); MONO # 0.6 10*3/uL (0.1-1.0); MONO % 6.7 % (3.0-9.0); NEUT # 4.3 10*3/uL (2.3-7.9); NEUT % 49.2 % (47.0-73.0); NITRITE Negative (Negative); PLATELET COUNT AUTOMATED 289 10*3/uL (130-400); RED BLOOD COUNT 4.68 10*6/uL (4.10-5.10); RED CELL DISTRI WIDTH 12.6 % (0-14.5); UROBILINOGEN 0.2 E.U./dl (0.0-1.0); WHITE BLOOD COUNT 8.7 10*3/uL (4.8-10.8)
[2023-02-03] MEDS ORDERED: DICYCLOMINE HCL10 MG PO (22:19)
[2023-02-03 22:28] LABS: WBC 0-2 wbc/hpf (0-5)
[2023-02-03 22:33] LABS: ALKALINE PHOSPHATASE 80 U/L (46-116); CHLORIDE 105 mmol/L (98-107); LIPASE 31 U/L (12-53); POTASSIUM 3.2 mmol/L (3.4-5.1); SGPT/ALT 12 U/L (10-49); TOTAL PROTEIN 6.5 gm/dL (6.0-8.0)
[2023-02-03 22:49] LABS: BUN < 5 mg/dl (9-23)
== END 2023-02-03 23:00 | disposition home or self-care (01) ==
LOC: ED 21:26
PROVIDERS: Student in an Organized Health Care Education/Training Program
DX: K50.10 Crohn's disease of large intestine without complications (principal); R19.7 Diarrhea, unspecified; F17.200 Nicotine dependence, unspecified, uncomplicated; Z88.2 Allergy status to sulfonamides; Z79.899 Other long term (current) drug therapy; Z90.49 Acquired absence of other specified parts of digestive tract; Z90.711 Acquired absence of uterus with remaining cervical stump; Z90.89 Acquired absence of other organs

== ENCOUNTER 2023-02-25 20:42 | Emergency (ER) | payer MEDICARE ==
[~2023-02-25] VITALS: Ht 157.4 cm; Wt 77.1 kg
[2023-02-25 21:50] LABS: BILIRUBIN Negative (Negative); BLOOD 1+ (Negative); CLARITY Turbid (Clear); COLOR Dark Yellow (Yellow); GLUCOSE Negative (Negative); KETONE Trace (Negative); LEUKO ESTERASE Trace (Negative); NITRITE Negative (Negative); PH 5.5 (4.5-8.0); SPECIFIC GRAVITY 1.025 (1.001-1.030)
[2023-02-25 21:51] LABS: BASO # 0.1 10*3/uL (0.0-0.1); BASO % 0.9 % (0.0-1.0); EOS # 0.3 10*3/uL (0.0-0.4); EOS % 3.2 % (1.0-4.0); HEMATOCRIT 43.3 % (37.0-47.0); LYMPH # 3.2 10*3/uL (1.3-4.4); LYMPH % 38.9 % (27.0-41.0); MEAN CELL VOLUME 95.2 fl (81.0-99.0); MEAN CORPUSCULAR HGB 33.4 pg (27.0-31.0); MEAN CORPUSCULAR HGB CONC 35.1 g/dl (33.0-37.0); MEAN PLATELET VOLUME 9.5 fl (9.6-12.3); MONO # 0.6 10*3/uL (0.1-1.0); MONO % 6.8 % (3.0-9.0); NEUT # 4.1 10*3/uL (2.3-7.9); PLATELET COUNT AUTOMATED 341 10*3/uL (130-400); RED BLOOD COUNT 4.55 10*6/uL (4.10-5.10); WHITE BLOOD COUNT 8.2 10*3/uL (4.8-10.8)
[2023-02-25 21:55] LABS: BACTERIA 3+; EPITHELIAL CELLS 16-20; RBC 0-2 rbc/hpf (0-2)
[2023-02-25 22:13] LABS: ALKALINE PHOSPHATASE 78 U/L (46-116); CHLORIDE 104 mmol/L (98-107); POTASSIUM 3.4 mmol/L (3.4-5.1); SGPT/ALT 16 U/L (10-49); TOTAL PROTEIN 6.5 gm/dL (6.0-8.0)
[2023-02-25 22:14] LABS: BUN < 5 mg/dl (9-23)
[2023-02-25] MEDS ORDERED: PREDNISONE10 MG PO (22:30)
[2023-02-25] MEDS ORDERED: DICYCLOMINE HCL10 MG PO (22:30)
== END 2023-02-25 22:52 | disposition home or self-care (01) ==
LOC: ED 20:42
PROVIDERS: Student in an Organized Health Care Education/Training Program
DX: K50.10 Crohn's disease of large intestine without complications (principal); R11.2 Nausea with vomiting, unspecified; R19.7 Diarrhea, unspecified; F17.200 Nicotine dependence, unspecified, uncomplicated; Z88.2 Allergy status to sulfonamides; Z79.899 Other long term (current) drug therapy; Z90.49 Acquired absence of other specified parts of digestive tract; Z90.711 Acquired absence of uterus with remaining cervical stump; Z90.89 Acquired absence of other organs

== ENCOUNTER 2023-03-27 22:18 | Emergency (ER) | payer MEDICARE ==
[~2023-03-27] VITALS: Ht 165.1 cm; Wt 72.6 kg
[2023-03-28 00:01] LABS: BASO # 0.1 10*3/uL (0.0-0.1); BASO % 0.7 % (0.0-1.0); EOS # 0.2 10*3/uL (0.0-0.4); EOS % 2.4 % (1.0-4.0); HEMATOCRIT 41.2 % (37.0-47.0); LYMPH # 3.1 10*3/uL (1.3-4.4); LYMPH % 37.4 % (27.0-41.0); MEAN CELL VOLUME 97.9 fl (81.0-99.0); MEAN CORPUSCULAR HGB CONC 34.7 g/dl (33.0-37.0); MEAN PLATELET VOLUME 9.5 fl (9.6-12.3); MONO # 0.6 10*3/uL (0.1-1.0); MONO % 6.7 % (3.0-9.0); NEUT # 4.3 10*3/uL (2.3-7.9); NEUT % 52.6 % (47.0-73.0); PLATELET COUNT AUTOMATED 277 10*3/uL (130-400); RED BLOOD COUNT 4.21 10*6/uL (4.10-5.10); RED CELL DISTRI WIDTH 13.2 % (0-14.5); WHITE BLOOD COUNT 8.2 10*3/uL (4.8-10.8)
[2023-03-28 00:22] LABS: ALKALINE PHOSPHATASE 80 U/L (46-116); CHLORIDE 105 mmol/L (98-107); POTASSIUM 3.3 mmol/L (3.4-5.1); TOTAL PROTEIN 6.1 gm/dL (6.0-8.0)
[2023-03-28 00:24] LABS: BUN < 5 mg/dl (9-23); SGPT/ALT < 7 U/L (10-49)
[2023-03-28 00:52] LABS: BILIRUBIN Negative (Negative); BLOOD Trace-Lysed (Negative); CLARITY Clear (Clear); COLOR Yellow (Yellow); GLUCOSE Negative (Negative); KETONE Trace (Negative); LEUKO ESTERASE Negative (Negative); NITRITE Negative (Negative); PH 5.5 (4.5-8.0); SPECIFIC GRAVITY 1.015 (1.001-1.030)
[2023-03-28 01:09] LABS: BACTERIA 1+; MUCOUS 1+
[2023-03-28] MEDS ORDERED: METRONIDAZOLE500 M1 PO ×2 (02:39→03:41)
[2023-03-28] MEDS ORDERED: CIPRO500 MG PO ×2 (02:39→03:41)
[2023-03-28] MEDS ORDERED: PREDNISONE10 M1 PO (02:39)
== END 2023-03-28 03:08 | disposition home or self-care (01) ==
LOC: ED 22:18
PROVIDERS: Emergency Medicine
DX: K52.9 Noninfective gastroenteritis and colitis, unspecified (principal); K50.90 Crohn's disease, unspecified, without complications; E87.6 Hypokalemia; E44.0 Moderate protein-calorie malnutrition; F17.200 Nicotine dependence, unspecified, uncomplicated; Z88.2 Allergy status to sulfonamides; Z79.899 Other long term (current) drug therapy; Z87.442 Personal history of urinary calculi; Z90.49 Acquired absence of other specified parts of digestive tract; Z90.711 Acquired absence of uterus with remaining cervical stump; Z90.89 Acquired absence of other organs

== ENCOUNTER 2023-04-10 19:54 | Emergency (ER) | payer MEDICARE ==
[~2023-04-10] VITALS: Ht 157.4 cm; Wt 72.6 kg
[2023-04-10 20:34] LABS: BASO # 0.1 10*3/uL (0.0-0.1); BASO % 0.4 % (0.0-1.0); EOS # 0.2 10*3/uL (0.0-0.4); EOS % 1.6 % (1.0-4.0); HEMATOCRIT 43.2 % (37.0-47.0); LYMPH # 3.6 10*3/uL (1.3-4.4); MEAN CELL VOLUME 97.3 fl (81.0-99.0); MEAN CORPUSCULAR HGB 33.8 pg (27.0-31.0); MEAN CORPUSCULAR HGB CONC 34.7 g/dl (33.0-37.0); MEAN PLATELET VOLUME 9.5 fl (9.6-12.3); MONO # 0.7 10*3/uL (0.1-1.0); MONO % 5.9 % (3.0-9.0); NEUT # 6.7 10*3/uL (2.3-7.9); NEUT % 59.7 % (47.0-73.0); PLATELET COUNT AUTOMATED 263 10*3/uL (130-400); RED BLOOD COUNT 4.44 10*6/uL (4.10-5.10); RED CELL DISTRI WIDTH 13.5 % (0-14.5); WHITE BLOOD COUNT 11.3 10*3/uL (4.8-10.8)
[2023-04-10] MEDS ORDERED: PREDNISONE10 MG PO (20:35)
[2023-04-10] MEDS ORDERED: OMEPRAZOLE40 MG PO (20:36)
[2023-04-10 21:02] LABS: ALKALINE PHOSPHATASE 60 U/L (46-116); BUN < 5 mg/dl (9-23); CHLORIDE 104 mmol/L (98-107); POTASSIUM 2.9 mmol/L (3.4-5.1); SGPT/ALT 10 U/L (10-49); TOTAL PROTEIN 5.9 gm/dL (6.0-8.0)
[2023-04-10 21:40] LABS: BILIRUBIN Negative (Negative); BLOOD Trace-Lysed (Negative); CLARITY Clear (Clear); COLOR Yellow (Yellow); GLUCOSE Negative (Negative); KETONE Negative (Negative); LEUKO ESTERASE Negative (Negative); NITRITE Negative (Negative); UROBILINOGEN 0.2 E.U./dl (0.0-1.0)
[2023-04-10 21:54] LABS: MUCOUS 1+
== END 2023-04-11 01:36 | disposition home or self-care (01) ==
LOC: ED 19:54
PROVIDERS: Nurse Practitioner Family
DX: K50.90 Crohn's disease, unspecified, without complications (principal); R19.7 Diarrhea, unspecified; E87.6 Hypokalemia; F17.200 Nicotine dependence, unspecified, uncomplicated; Z88.2 Allergy status to sulfonamides; Z79.899 Other long term (current) drug therapy; Z90.49 Acquired absence of other specified parts of digestive tract; Z90.711 Acquired absence of uterus with remaining cervical stump; Z90.89 Acquired absence of other organs

== ENCOUNTER 2023-04-14 19:31 | Emergency (ER) | payer MEDICARE ==
[~2023-04-14] VITALS: Ht 157.4 cm; Wt 70.3 kg
[~2023-04-14 19:31] MED LIST changes: +OMEPRAZOLE40 MG PO
[2023-04-14 21:53] LABS: BASO # 0.1 10*3/uL (0.0-0.1); BASO % 0.5 % (0.0-1.0); EOS # 0.2 10*3/uL (0.0-0.4); HEMATOCRIT 45.4 % (37.0-47.0); LYMPH # 3.2 10*3/uL (1.3-4.4); LYMPH % 29.7 % (27.0-41.0); MEAN CELL VOLUME 98.5 fl (81.0-99.0); MEAN CORPUSCULAR HGB 34.1 pg (27.0-31.0); MEAN CORPUSCULAR HGB CONC 34.6 g/dl (33.0-37.0); MEAN PLATELET VOLUME 9.6 fl (9.6-12.3); MONO # 0.7 10*3/uL (0.1-1.0); MONO % 6.1 % (3.0-9.0); NEUT # 6.6 10*3/uL (2.3-7.9); NEUT % 61.2 % (47.0-73.0); PLATELET COUNT AUTOMATED 269 10*3/uL (130-400); RED BLOOD COUNT 4.61 10*6/uL (4.10-5.10); RED CELL DISTRI WIDTH 13.2 % (0-14.5); WHITE BLOOD COUNT 10.8 10*3/uL (4.8-10.8)
[2023-04-14 22:15] LABS: ALKALINE PHOSPHATASE 68 U/L (46-116); BUN 6 mg/dl (9-23); CHLORIDE 105 mmol/L (98-107); LIPASE 40 U/L (12-53); POTASSIUM 4.2 mmol/L (3.4-5.1); SGPT/ALT 8 U/L (10-49); TOTAL PROTEIN 6.5 gm/dL (6.0-8.0)
[2023-04-14] MEDS ORDERED: ONDANSETRON4 MG SL (22:38)
== END 2023-04-14 23:10 | disposition home or self-care (01) ==
LOC: ED 19:31
PROVIDERS: Physician Assistant Medical
DX: K50.90 Crohn's disease, unspecified, without complications (principal); R19.7 Diarrhea, unspecified; R11.2 Nausea with vomiting, unspecified; F32.A Depression, unspecified; J45.909 Unspecified asthma, uncomplicated; Z88.2 Allergy status to sulfonamides; Z90.49 Acquired absence of other specified parts of digestive tract; Z98.890 Other specified postprocedural states; Z90.89 Acquired absence of other organs; Z90.710 Acquired absence of both cervix and uterus; F17.200 Nicotine dependence, unspecified, uncomplicated

== ENCOUNTER 2023-04-30 20:07 | Emergency (ER) | payer MEDICARE ==
[~2023-04-30] VITALS: Ht 157.5 cm; Wt 75.7 kg
[2023-04-30 20:39] LABS: BASO % 0.5 % (0.0-1.0); EOS # 0.2 10*3/uL (0.0-0.4); EOS % 2.4 % (1.0-4.0); LYMPH # 2.9 10*3/uL (1.3-4.4); LYMPH % 43.1 % (27.0-41.0); MEAN CELL VOLUME 99.5 fl (81.0-99.0); MEAN CORPUSCULAR HGB 34.4 pg (27.0-31.0); MEAN CORPUSCULAR HGB CONC 34.5 g/dl (33.0-37.0); MEAN PLATELET VOLUME 9.7 fl (9.6-12.3); MONO # 0.4 10*3/uL (0.1-1.0); MONO % 6.6 % (3.0-9.0); NEUT # 3.1 10*3/uL (2.3-7.9); NEUT % 47.1 % (47.0-73.0); PLATELET COUNT AUTOMATED 318 10*3/uL (130-400); RED BLOOD COUNT 4.22 10*6/uL (4.10-5.10); RED CELL DISTRI WIDTH 12.8 % (0-14.5); WHITE BLOOD COUNT 6.7 10*3/uL (4.8-10.8)
[2023-04-30 20:49] LABS: ACT PARTIAL THROMBO TIME 30.5 SECONDS (20.0-32.1)
[2023-04-30 20:57] LABS: ALKALINE PHOSPHATASE 78 U/L (46-116); BUN 6 mg/dl (9-23); CHLORIDE 108 mmol/L (98-107); LIPASE 29 U/L (12-53); POTASSIUM 3.3 mmol/L (3.4-5.1); SGPT/ALT 10 U/L (10-49); TOTAL PROTEIN 6.2 gm/dL (6.0-8.0)
[2023-04-30] MEDS ORDERED: PREDNISONE20 M1 PO (21:00)
== END 2023-04-30 21:41 | disposition home or self-care (01) ==
LOC: ED 20:07
PROVIDERS: Internal Medicine
DX: K50.90 Crohn's disease, unspecified, without complications (principal); F32.A Depression, unspecified; J45.909 Unspecified asthma, uncomplicated; Z88.2 Allergy status to sulfonamides; Z90.49 Acquired absence of other specified parts of digestive tract; Z90.89 Acquired absence of other organs; Z98.890 Other specified postprocedural states; Z90.710 Acquired absence of both cervix and uterus; F17.200 Nicotine dependence, unspecified, uncomplicated

== ENCOUNTER 2023-05-10 21:32 | Emergency (ER) | payer MEDICARE ==
[~2023-05-10] VITALS: Ht 157.4 cm; Wt 70.3 kg
[2023-05-10 22:54] LABS: BASO # 0.1 10*3/uL (0.0-0.1); BASO % 0.6 % (0.0-1.0); EOS # 0.1 10*3/uL (0.0-0.4); EOS % 0.9 % (1.0-4.0); HEMATOCRIT 40.1 % (37.0-47.0); LYMPH # 2.7 10*3/uL (1.3-4.4); LYMPH % 34.3 % (27.0-41.0); MEAN CELL VOLUME 96.6 fl (81.0-99.0); MEAN CORPUSCULAR HGB CONC 35.2 g/dl (33.0-37.0); MEAN PLATELET VOLUME 9.4 fl (9.6-12.3); MONO # 0.6 10*3/uL (0.1-1.0); MONO % 7.5 % (3.0-9.0); NEUT # 4.4 10*3/uL (2.3-7.9); NEUT % 56.3 % (47.0-73.0); PLATELET COUNT AUTOMATED 264 10*3/uL (130-400); RED BLOOD COUNT 4.15 10*6/uL (4.10-5.10); RED CELL DISTRI WIDTH 12.7 % (0-14.5); WHITE BLOOD COUNT 7.9 10*3/uL (4.8-10.8)
[2023-05-10 23:03] LABS: BILIRUBIN Negative (Negative); BLOOD Trace-Intact (Negative); CLARITY Clear (Clear); COLOR Yellow (Yellow); GLUCOSE Negative (Negative); KETONE Negative (Negative); LEUKO ESTERASE Negative (Negative); NITRITE Negative (Negative); SPECIFIC GRAVITY <= 1.005 (1.001-1.030); UROBILINOGEN 0.2 E.U./dl (0.0-1.0)
[2023-05-10 23:05] LABS: ACT PARTIAL THROMBO TIME 28.2 SECONDS (20.0-32.1)
[2023-05-10 23:15] LABS: ALKALINE PHOSPHATASE 71 U/L (46-116); CHLORIDE 109 mmol/L (98-107); LIPASE 35 U/L (12-53); POTASSIUM 3.3 mmol/L (3.4-5.1); SGPT/ALT 8 U/L (10-49); TOTAL PROTEIN 5.8 gm/dL (6.0-8.0)
[2023-05-10 23:16] LABS: BUN < 5 mg/dl (9-23)
[2023-05-11] MEDS ORDERED: METRONIDAZOLE500 M1 PO (02:15)
[2023-05-11] MEDS ORDERED: CIPRO500 MG PO (02:15)
== END 2023-05-11 03:04 | disposition home or self-care (01) ==
LOC: ED 21:32
PROVIDERS: Internal Medicine
DX: K52.9 Noninfective gastroenteritis and colitis, unspecified (principal); F32.A Depression, unspecified; J45.909 Unspecified asthma, uncomplicated; Z88.2 Allergy status to sulfonamides; Z90.49 Acquired absence of other specified parts of digestive tract; Z90.710 Acquired absence of both cervix and uterus; Z90.89 Acquired absence of other organs; Z98.890 Other specified postprocedural states; F17.200 Nicotine dependence, unspecified, uncomplicated

== ENCOUNTER 2023-06-12 17:17 | Emergency (ER) | payer MEDICARE ==
[~2023-06-12] VITALS: Ht 157.4 cm; Wt 68.0 kg
[2023-06-12] MEDS ORDERED: CEPHALEXIN500 M1 PO (18:04)
[2023-06-12] MEDS ORDERED: MELOXICAM15 MG PO (18:04)
== END 2023-06-12 18:15 | disposition home or self-care (01) ==
LOC: ED 17:17
DX: I80.8 Phlebitis and thrombophlebitis of other sites (principal); L03.113 Cellulitis of right upper limb; F32.A Depression, unspecified; J45.909 Unspecified asthma, uncomplicated; Z88.2 Allergy status to sulfonamides; Z90.49 Acquired absence of other specified parts of digestive tract; Z98.890 Other specified postprocedural states; Z90.89 Acquired absence of other organs; Z90.710 Acquired absence of both cervix and uterus; F12.90 Cannabis use, unspecified, uncomplicated; F17.290 Nicotine dependence, other tobacco product, uncomplicated

== ENCOUNTER → 2023-06-15 | Outpatient (CLI) | payer OTHER ==
[~2023-06-15] MED LIST changes: +MELOXICAM15 MG PO
== END ==
LOC: MAMMO 11:00
PROVIDERS: ATTEND Internal Medicine
DX: Z12.31 Encounter for screening mammogram for malignant neoplasm of breast (principal)

== ENCOUNTER 2023-06-28 13:27 | Emergency (ER) | payer OTHER ==
[~2023-06-28] VITALS: Ht 157.4 cm; Wt 68.0 kg
[2023-06-28 14:54] LABS: BASO # 0.1 10*3/uL (0.0-0.1); BASO % 0.5 % (0.0-1.0); EOS # 0.1 10*3/uL (0.0-0.4); EOS % 1.3 % (1.0-4.0); HEMATOCRIT 44.2 % (37.0-47.0); LYMPH # 3.2 10*3/uL (1.3-4.4); LYMPH % 30.9 % (27.0-41.0); MEAN CELL VOLUME 98.9 fl (81.0-99.0); MEAN CORPUSCULAR HGB 33.8 pg (27.0-31.0); MEAN CORPUSCULAR HGB CONC 34.2 g/dl (33.0-37.0); MEAN PLATELET VOLUME 9.4 fl (9.6-12.3); MONO # 0.6 10*3/uL (0.1-1.0); MONO % 5.4 % (3.0-9.0); NEUT # 6.3 10*3/uL (2.3-7.9); NEUT % 61.5 % (47.0-73.0); PLATELET COUNT AUTOMATED 299 10*3/uL (130-400); RED BLOOD COUNT 4.47 10*6/uL (4.10-5.10); RED CELL DISTRI WIDTH 12.7 % (0-14.5); WHITE BLOOD COUNT 10.3 10*3/uL (4.8-10.8)
[2023-06-28 15:17] LABS: ALKALINE PHOSPHATASE 79 U/L (46-116); BUN 7 mg/dl (9-23); CHLORIDE 106 mmol/L (98-107); LIPASE 47 U/L (12-53); POTASSIUM 3.9 mmol/L (3.4-5.1); SGPT/ALT 12 U/L (5-49); TOTAL PROTEIN 6.4 gm/dL (6.0-8.0)
[2023-06-28] MEDS ORDERED: ONDANSETRON4 MG SL (17:20)
[2023-06-28] MEDS ORDERED: HYDROCODONE-AC1 EAC1 PO (17:20)
== END 2023-06-28 17:26 | disposition home or self-care (01) ==
LOC: ED 13:27
PROVIDERS: Emergency Medicine
DX: R10.84 Generalized abdominal pain (principal); R11.2 Nausea with vomiting, unspecified; R19.7 Diarrhea, unspecified; F17.200 Nicotine dependence, unspecified, uncomplicated; Z88.2 Allergy status to sulfonamides; Z79.899 Other long term (current) drug therapy; Z79.2 Long term (current) use of antibiotics; Z90.49 Acquired absence of other specified parts of digestive tract; Z90.711 Acquired absence of uterus with remaining cervical stump; Z90.89 Acquired absence of other organs

== ENCOUNTER 2023-09-13 20:40 | Emergency (ER) | payer OTHER ==
[~2023-09-13] VITALS: Ht 157.4 cm; Wt 68.0 kg
[2023-09-13 21:35] LABS: BASO # 0.1 10*3/uL (0.0-0.1); BASO % 0.6 % (0.0-1.0); EOS # 0.2 10*3/uL (0.0-0.4); HEMATOCRIT 42.6 % (37.0-47.0); LYMPH # 3.2 10*3/uL (1.3-4.4); LYMPH % 40.2 % (27.0-41.0); MEAN CELL VOLUME 97.9 fl (81.0-99.0); MEAN CORPUSCULAR HGB 33.1 pg (27.0-31.0); MEAN CORPUSCULAR HGB CONC 33.8 g/dl (33.0-37.0); MEAN PLATELET VOLUME 9.1 fl (9.6-12.3); MONO # 0.6 10*3/uL (0.1-1.0); MONO % 7.2 % (3.0-9.0); NEUT # 3.9 10*3/uL (2.3-7.9); NEUT % 49.7 % (47.0-73.0); PLATELET COUNT AUTOMATED 302 10*3/uL (130-400); RED BLOOD COUNT 4.35 10*6/uL (4.10-5.10); RED CELL DISTRI WIDTH 12.3 % (0-14.5); WHITE BLOOD COUNT 7.9 10*3/uL (4.8-10.8)
[2023-09-13 21:45] LABS: ACT PARTIAL THROMBO TIME 27.6 SECONDS (20.0-32.1)
[2023-09-13 21:54] LABS: ALKALINE PHOSPHATASE 72 U/L (46-116); BUN 7 mg/dl (9-23); CHLORIDE 108 mmol/L (98-107); LIPASE 39 U/L (12-53); POTASSIUM 3.1 mmol/L (3.4-5.1); SGPT/ALT 9 U/L (5-49); TOTAL PROTEIN 6.1 gm/dL (6.0-8.0)
[2023-09-13 22:27] LABS: BILIRUBIN Negative (Negative); BLOOD Negative (Negative); CLARITY Clear (Clear); COLOR Yellow (Yellow); GLUCOSE Negative (Negative); KETONE Trace (Negative); LEUKO ESTERASE Negative (Negative); NITRITE Negative (Negative); SPECIFIC GRAVITY 1.025 (1.001-1.030)
[2023-09-13 22:56] LABS: WBC 0-2 wbc/hpf (0-5)
== END 2023-09-14 05:11 | disposition home or self-care (01) ==
LOC: ED 20:40
PROVIDERS: Family Medicine
DX: R10.32 Left lower quadrant pain (principal); E87.6 Hypokalemia; R11.0 Nausea; F32.A Depression, unspecified; J45.909 Unspecified asthma, uncomplicated; Z88.2 Allergy status to sulfonamides; Z90.49 Acquired absence of other specified parts of digestive tract; Z90.89 Acquired absence of other organs; Z90.710 Acquired absence of both cervix and uterus; Z98.890 Other specified postprocedural states; F17.200 Nicotine dependence, unspecified, uncomplicated; F12.90 Cannabis use, unspecified, uncomplicated

== ENCOUNTER 2023-09-24 12:53 | Emergency (ER) | payer OTHER ==
[~2023-09-24] VITALS: Ht 157.4 cm; Wt 68.0 kg
[2023-09-24 13:58] LABS: BASO # 0.1 10*3/uL (0.0-0.1); BASO % 0.6 % (0.0-1.0); EOS # 0.1 10*3/uL (0.0-0.4); EOS % 1.4 % (1.0-4.0); HEMATOCRIT 43.7 % (37.0-47.0); LYMPH # 2.8 10*3/uL (1.3-4.4); LYMPH % 31.4 % (27.0-41.0); MEAN CELL VOLUME 100.5 fl (81.0-99.0); MEAN CORPUSCULAR HGB 33.6 pg (27.0-31.0); MEAN CORPUSCULAR HGB CONC 33.4 g/dl (33.0-37.0); MONO # 0.5 10*3/uL (0.1-1.0); MONO % 5.9 % (3.0-9.0); NEUT # 5.3 10*3/uL (2.3-7.9); NEUT % 60.4 % (47.0-73.0); PLATELET COUNT AUTOMATED 311 10*3/uL (130-400); RED BLOOD COUNT 4.35 10*6/uL (4.10-5.10); RED CELL DISTRI WIDTH 12.5 % (0-14.5); WHITE BLOOD COUNT 8.8 10*3/uL (4.8-10.8)
[2023-09-24 14:18] LABS: ALKALINE PHOSPHATASE 77 U/L (46-116); CHLORIDE 108 mmol/L (98-107); POTASSIUM 3.5 mmol/L (3.4-5.1); SGPT/ALT 11 U/L (5-49); TOTAL PROTEIN 6.3 gm/dL (6.0-8.0)
[2023-09-24 14:21] LABS: BUN < 5 mg/dl (9-23)
[2023-09-24] MEDS ORDERED: CLINDAMYCIN HC300 MG PO (14:28)
== END 2023-09-24 14:38 | disposition home or self-care (01) ==
LOC: ED 12:53
PROVIDERS: Nurse Practitioner
DX: L03.115 Cellulitis of right lower limb (principal); F17.200 Nicotine dependence, unspecified, uncomplicated; Z88.2 Allergy status to sulfonamides; Z79.899 Other long term (current) drug therapy; Z90.49 Acquired absence of other specified parts of digestive tract; Z90.711 Acquired absence of uterus with remaining cervical stump; Z90.89 Acquired absence of other organs

== ENCOUNTER 2023-11-21 11:24 | Emergency (ER) | payer OTHER ==
[~2023-11-21] VITALS: Ht 157.4 cm; Wt 70.3 kg
[2023-11-21] MEDS ORDERED: SODIUM CHLORIDE 0.9% 1,000 ML IV ONE (11:55)
[2023-11-21 12:12] LABS: BASO # 0.1 10*3/uL (0.0-0.1); BASO % 0.7 % (0.0-1.0); EOS # 0.1 10*3/uL (0.0-0.4); EOS % 1.3 % (1.0-4.0); HEMATOCRIT 45.2 % (37.0-47.0); LYMPH # 2.7 10*3/uL (1.3-4.4); LYMPH % 31.3 % (27.0-41.0); MEAN CELL VOLUME 99.8 fl (81.0-99.0); MEAN CORPUSCULAR HGB 33.1 pg (27.0-31.0); MEAN CORPUSCULAR HGB CONC 33.2 g/dl (33.0-37.0); MEAN PLATELET VOLUME 9.5 fl (9.6-12.3); MONO # 0.4 10*3/uL (0.1-1.0); MONO % 4.9 % (3.0-9.0); NEUT # 5.2 10*3/uL (2.3-7.9); NEUT % 61.4 % (47.0-73.0); PLATELET COUNT AUTOMATED 299 10*3/uL (130-400); RED BLOOD COUNT 4.53 10*6/uL (4.10-5.10); RED CELL DISTRI WIDTH 12.1 % (0-14.5); WHITE BLOOD COUNT 8.5 10*3/uL (4.8-10.8)
[2023-11-21] MEDS ORDERED: IOHEXOL 300 MG/ML 100 ML VIAL IV ONE (12:25)
[2023-11-21 12:27] LABS: ALKALINE PHOSPHATASE 80 U/L (46-116); CHLORIDE 108 mmol/L (98-107); LIPASE 33 U/L (12-53); POTASSIUM 3.5 mmol/L (3.4-5.1); SGPT/ALT 8 U/L (5-49); TOTAL PROTEIN 6.8 gm/dL (6.0-8.0)
[2023-11-21 12:28] LABS: BUN < 5 mg/dl (9-23)
[2023-11-21 12:32] LABS: BILIRUBIN Negative (Negative); BLOOD 1+ (Negative); CLARITY Clear (Clear); COLOR Yellow (Yellow); GLUCOSE Negative (Negative); KETONE Trace (Negative); LEUKO ESTERASE Negative (Negative); NITRITE Negative (Negative); PH 5.5 (4.5-8.0)
[2023-11-21 13:10] LABS: BACTERIA 1+; CALCIUM OXALATE CRYSTALS Trace
[2023-11-21 13:11] LABS: MUCOUS 2+
[2023-11-21] MEDS ORDERED: Dexamethasone Sodium Phospha 20 MG/5 ML VIAL IV ONE (14:15)
[2023-11-21] MEDS ORDERED: PREDNISONE50 MG PO (14:17)
== END 2023-11-21 14:37 | disposition home or self-care (01) ==
LOC: ED 11:24
PROVIDERS: Internal Medicine
DX: K50.00 Crohn's disease of small intestine without complications (principal); R11.2 Nausea with vomiting, unspecified; Z88.2 Allergy status to sulfonamides; Z90.49 Acquired absence of other specified parts of digestive tract; Z98.890 Other specified postprocedural states; Z90.89 Acquired absence of other organs; Z90.710 Acquired absence of both cervix and uterus; F17.200 Nicotine dependence, unspecified, uncomplicated; F12.90 Cannabis use, unspecified, uncomplicated

== ENCOUNTER 2023-12-27 21:22 | Emergency (ER) | payer OTHER ==
[~2023-12-27] VITALS: Ht 157.4 cm; Wt 66.7 kg
[~2023-12-27 21:22] MED LIST changes: +PREDNISONE50 MG PO
[2023-12-27 22:01] LABS: BASO # 0.1 10*3/uL (0.0-0.1); BASO % 0.7 % (0.0-1.0); EOS # 0.2 10*3/uL (0.0-0.4); EOS % 2.1 % (1.0-4.0); HEMATOCRIT 43.7 % (37.0-47.0); LYMPH # 2.8 10*3/uL (1.3-4.4); LYMPH % 36.6 % (27.0-41.0); MEAN CELL VOLUME 98.6 fl (81.0-99.0); MEAN CORPUSCULAR HGB CONC 33.4 g/dl (33.0-37.0); MONO # 0.5 10*3/uL (0.1-1.0); MONO % 6.6 % (3.0-9.0); NEUT # 4.1 10*3/uL (2.3-7.9); NEUT % 53.7 % (47.0-73.0); PLATELET COUNT AUTOMATED 296 10*3/uL (130-400); RED BLOOD COUNT 4.43 10*6/uL (4.10-5.10); RED CELL DISTRI WIDTH 12.3 % (0-14.5); WHITE BLOOD COUNT 7.6 10*3/uL (4.8-10.8)
[2023-12-27] MEDS ORDERED: Ondansetron Hydrochloride 4 MG/2 ML VIAL IV ONE (22:05)
[2023-12-27] MEDS ORDERED: HYDROmorphONE Hydrochloride 0.5 MG/0.5 ML SYRINGE IV ONE (22:05)
[2023-12-27] MEDS ORDERED: IOHEXOL 300 MG/ML 100 ML VIAL IV ONE (22:15)
[2023-12-27 22:23] LABS: ALKALINE PHOSPHATASE 72 U/L (46-116); CHLORIDE 106 mmol/L (98-107); LIPASE 44 U/L (12-53); POTASSIUM 3.4 mmol/L (3.4-5.1); SGPT/ALT 10 U/L (5-49); TOTAL PROTEIN 6.4 gm/dL (6.0-8.0)
[2023-12-27 22:25] LABS: BUN < 5 mg/dl (9-23)
[2023-12-27 22:26] LABS: BILIRUBIN Negative (Negative); BLOOD Negative (Negative); CLARITY Clear (Clear); COLOR Yellow (Yellow); GLUCOSE Negative (Negative); KETONE Negative (Negative); LEUKO ESTERASE Negative (Negative); NITRITE Negative (Negative); PH 5.5 (4.5-8.0); SPECIFIC GRAVITY <= 1.005 (1.001-1.030); UROBILINOGEN 0.2 E.U./dl (0.0-1.0)
[2023-12-27 22:43] LABS: RBC 0-2 rbc/hpf (0-2); WBC 0-2 wbc/hpf (0-5)
[2023-12-28] MEDS ORDERED: HYDROmorphONE Hydrochloride 0.5 MG/0.5 ML SYRINGE IV ONE (00:40)
== END 2023-12-28 01:34 | disposition home or self-care (01) ==
LOC: ED 21:22
PROVIDERS: Emergency Medicine
DX: K50.90 Crohn's disease, unspecified, without complications (principal); A08.8 Other specified intestinal infections; K08.89 Other specified disorders of teeth and supporting structures; Z88.2 Allergy status to sulfonamides; E78.00 Pure hypercholesterolemia, unspecified; E87.6 Hypokalemia; F32.A Depression, unspecified; J45.909 Unspecified asthma, uncomplicated; Z90.49 Acquired absence of other specified parts of digestive tract; Z98.890 Other specified postprocedural states; Z90.710 Acquired absence of both cervix and uterus; Z90.89 Acquired absence of other organs; F17.200 Nicotine dependence, unspecified, uncomplicated; F12.90 Cannabis use, unspecified, uncomplicated

== ENCOUNTER 2024-02-13 16:56 | Emergency (ER) | payer OTHER ==
[~2024-02-13] VITALS: Ht 157.4 cm; Wt 68.0 kg
[2024-02-13] MEDS ORDERED: methylPREDNISolone sod succ 125 MG VIAL IM ONE (19:00)
[2024-02-13 19:18] LABS: BASO # 0.1 10*3/uL (0.0-0.1); BASO % 0.7 % (0.0-1.0); EOS # 0.2 10*3/uL (0.0-0.4); HEMATOCRIT 41.2 % (37.0-47.0); MEAN CELL VOLUME 97.4 fl (81.0-99.0); MEAN CORPUSCULAR HGB 33.1 pg (27.0-31.0); MEAN PLATELET VOLUME 9.5 fl (9.6-12.3); MONO # 0.5 10*3/uL (0.1-1.0); MONO % 5.9 % (3.0-9.0); NEUT # 5.1 10*3/uL (2.3-7.9); NEUT % 57.2 % (47.0-73.0); PLATELET COUNT AUTOMATED 251 10*3/uL (130-400); RED BLOOD COUNT 4.23 10*6/uL (4.10-5.10); RED CELL DISTRI WIDTH 12.7 % (0-14.5); WHITE BLOOD COUNT 8.8 10*3/uL (4.8-10.8)
[2024-02-13 19:50] LABS: ALKALINE PHOSPHATASE 72 U/L (46-116); BUN 8 mg/dl (9-23); CHLORIDE 103 mmol/L (98-107); LIPASE 41 U/L (12-53); POTASSIUM 3.7 mmol/L (3.4-5.1); SGPT/ALT 7 U/L (5-49); TOTAL PROTEIN 6.2 gm/dL (6.0-8.0)
[2024-02-13] MEDS ORDERED: MEPERIDINE HYDROCHLORIDE 25 MG/1 ML VIAL IM ONE (21:10)
[2024-02-13] MEDS ORDERED: Promethazine Hydrochloride 25 MG/ML VIAL IM ONE (21:10)
== END 2024-02-13 21:14 | disposition home or self-care (01) ==
LOC: ED 16:56
PROVIDERS: Internal Medicine
DX: K50.90 Crohn's disease, unspecified, without complications (principal); R11.0 Nausea; R19.7 Diarrhea, unspecified; F32.A Depression, unspecified; J45.909 Unspecified asthma, uncomplicated; F17.200 Nicotine dependence, unspecified, uncomplicated; F12.90 Cannabis use, unspecified, uncomplicated; Z88.2 Allergy status to sulfonamides; Z90.49 Acquired absence of other specified parts of digestive tract; Z98.890 Other specified postprocedural states; Z90.710 Acquired absence of both cervix and uterus; Z90.89 Acquired absence of other organs

== ENCOUNTER 2024-02-20 21:54 | Emergency (ER) | payer OTHER ==
[~2024-02-20] VITALS: Ht 157.4 cm; Wt 68.0 kg
[2024-02-20 22:37] LABS: BASO # 0.1 10*3/uL (0.0-0.1); BASO % 0.9 % (0.0-1.0); EOS # 0.2 10*3/uL (0.0-0.4); EOS % 2.1 % (1.0-4.0); HEMATOCRIT 40.3 % (37.0-47.0); LYMPH # 3.4 10*3/uL (1.3-4.4); LYMPH % 43.9 % (27.0-41.0); MEAN CELL VOLUME 98.5 fl (81.0-99.0); MEAN CORPUSCULAR HGB CONC 33.5 g/dl (33.0-37.0); MEAN PLATELET VOLUME 9.1 fl (9.6-12.3); MONO # 0.5 10*3/uL (0.1-1.0); MONO % 6.5 % (3.0-9.0); NEUT # 3.6 10*3/uL (2.3-7.9); NEUT % 46.3 % (47.0-73.0); PLATELET COUNT AUTOMATED 266 10*3/uL (130-400); RED BLOOD COUNT 4.09 10*6/uL (4.10-5.10); RED CELL DISTRI WIDTH 12.5 % (0-14.5); WHITE BLOOD COUNT 7.8 10*3/uL (4.8-10.8)
[2024-02-20 22:55] LABS: ALKALINE PHOSPHATASE 68 U/L (46-116); BUN 8 mg/dl (9-23); CHLORIDE 107 mmol/L (98-107); LIPASE 74 U/L (12-53); POTASSIUM 3.5 mmol/L (3.4-5.1); SGPT/ALT 10 U/L (5-49)
[2024-02-21] MEDS ORDERED: Promethazine Hydrochloride 25 MG/ML VIAL IM ONE (00:05)
[2024-02-21] MEDS ORDERED: MEPERIDINE HYDROCHLORIDE 25 MG/1 ML VIAL IM ONE (00:05)
[2024-02-21] MEDS ORDERED: methylPREDNISolone sod succ 125 MG VIAL IM ONE (00:05)
== END 2024-02-21 00:43 | disposition home or self-care (01) ==
LOC: ED 21:54
PROVIDERS: Internal Medicine
DX: K50.90 Crohn's disease, unspecified, without complications (principal); F32.A Depression, unspecified; J45.909 Unspecified asthma, uncomplicated; F17.200 Nicotine dependence, unspecified, uncomplicated; Z88.2 Allergy status to sulfonamides; Z90.49 Acquired absence of other specified parts of digestive tract; Z90.710 Acquired absence of both cervix and uterus; Z90.89 Acquired absence of other organs; Z98.890 Other specified postprocedural states

== ENCOUNTER 2024-03-13 19:52 | Emergency (ER) | payer OTHER ==
[~2024-03-13] VITALS: Ht 157.4 cm; Wt 65.8 kg
[2024-03-13] MEDS ORDERED: Promethazine Hydrochloride 25 MG/ML VIAL IM ONE (20:20)
[2024-03-13] MEDS ORDERED: methylPREDNISolone sod succ 125 MG VIAL IM ONE (20:20)
[2024-03-13] MEDS ORDERED: MEPERIDINE HYDROCHLORIDE 25 MG/1 ML VIAL IM ONE (20:20)
[2024-03-13 20:27] LABS: BASO # 0.1 10*3/uL (0.0-0.1); EOS # 0.2 10*3/uL (0.0-0.4); EOS % 2.7 % (1.0-4.0); HEMATOCRIT 40.5 % (37.0-47.0); LYMPH # 3.4 10*3/uL (1.3-4.4); LYMPH % 45.8 % (27.0-41.0); MEAN CELL VOLUME 97.4 fl (81.0-99.0); MEAN CORPUSCULAR HGB 33.4 pg (27.0-31.0); MEAN CORPUSCULAR HGB CONC 34.3 g/dl (33.0-37.0); MEAN PLATELET VOLUME 9.3 fl (9.6-12.3); MONO # 0.5 10*3/uL (0.1-1.0); MONO % 7.2 % (3.0-9.0); NEUT # 3.2 10*3/uL (2.3-7.9); NEUT % 43.2 % (47.0-73.0); PLATELET COUNT AUTOMATED 264 10*3/uL (130-400); RED BLOOD COUNT 4.16 10*6/uL (4.10-5.10); RED CELL DISTRI WIDTH 12.8 % (0-14.5); WHITE BLOOD COUNT 7.3 10*3/uL (4.8-10.8)
[2024-03-13 20:45] LABS: ALKALINE PHOSPHATASE 74 U/L (46-116); BUN 6 mg/dl (9-23); CHLORIDE 107 mmol/L (98-107); LIPASE 35 U/L (12-53); POTASSIUM 3.3 mmol/L (3.4-5.1); SGPT/ALT 11 U/L (5-49); TOTAL PROTEIN 6.1 gm/dL (6.0-8.0)
[2024-03-13] MEDS ORDERED: POTASSIUM CHLORIDE 20 MEQ TAB PO ONE (20:50)
[2024-03-13] MEDS ORDERED: PREDNISONE50 MG PO (21:25)
== END 2024-03-13 21:41 | disposition home or self-care (01) ==
LOC: ED 19:52
PROVIDERS: Physician Assistant Medical
DX: K50.90 Crohn's disease, unspecified, without complications (principal); R19.7 Diarrhea, unspecified; F32.A Depression, unspecified; J45.909 Unspecified asthma, uncomplicated; F17.200 Nicotine dependence, unspecified, uncomplicated; F12.90 Cannabis use, unspecified, uncomplicated; Z88.2 Allergy status to sulfonamides; Z90.49 Acquired absence of other specified parts of digestive tract; Z98.890 Other specified postprocedural states; Z90.710 Acquired absence of both cervix and uterus; Z90.89 Acquired absence of other organs

== ENCOUNTER 2024-04-09 21:33 | Emergency (ER) | payer OTHER ==
[~2024-04-09] VITALS: Ht 157.4 cm; Wt 65.8 kg
[2024-04-09 22:41] LABS: BASO # 0.1 10*3/uL (0.0-0.1); BASO % 0.6 % (0.0-1.0); EOS # 0.3 10*3/uL (0.0-0.4); EOS % 3.7 % (1.0-4.0); HEMATOCRIT 42.5 % (37.0-47.0); LYMPH # 3.2 10*3/uL (1.3-4.4); MEAN CELL VOLUME 98.8 fl (81.0-99.0); MEAN CORPUSCULAR HGB CONC 33.4 g/dl (33.0-37.0); MEAN PLATELET VOLUME 9.4 fl (9.6-12.3); MONO # 0.5 10*3/uL (0.1-1.0); MONO % 6.2 % (3.0-9.0); NEUT # 3.9 10*3/uL (2.3-7.9); NEUT % 49.1 % (47.0-73.0); PLATELET COUNT AUTOMATED 306 10*3/uL (130-400); RED CELL DISTRI WIDTH 12.5 % (0-14.5); WHITE BLOOD COUNT 7.9 10*3/uL (4.8-10.8)
[2024-04-09 23:02] LABS: ALKALINE PHOSPHATASE 81 U/L (46-116); BUN 6 mg/dl (9-23); CHLORIDE 104 mmol/L (98-107); LIPASE 39 U/L (12-53); POTASSIUM 3.5 mmol/L (3.4-5.1); SGPT/ALT 9 U/L (5-49); TOTAL PROTEIN 6.4 gm/dL (6.0-8.0)
[2024-04-09] MEDS ORDERED: methylPREDNISolone sod succ 125 MG VIAL IM ONE (23:40)
[2024-04-09] MEDS ORDERED: Promethazine Hydrochloride 25 MG/ML VIAL IM ONE (23:40)
[2024-04-09] MEDS ORDERED: MEPERIDINE HYDROCHLORIDE 25 MG/1 ML VIAL IM ONE (23:40)
== END 2024-04-10 00:21 | disposition home or self-care (01) ==
LOC: ED 21:33
PROVIDERS: Internal Medicine
DX: K50.90 Crohn's disease, unspecified, without complications (principal); R19.7 Diarrhea, unspecified; F32.A Depression, unspecified; J45.909 Unspecified asthma, uncomplicated; F17.200 Nicotine dependence, unspecified, uncomplicated; F12.90 Cannabis use, unspecified, uncomplicated; Z88.2 Allergy status to sulfonamides; Z90.49 Acquired absence of other specified parts of digestive tract; Z98.890 Other specified postprocedural states; Z90.89 Acquired absence of other organs; Z90.710 Acquired absence of both cervix and uterus

== ENCOUNTER 2024-05-03 20:32 | Emergency (ER) | payer OTHER ==
[~2024-05-03] VITALS: Ht 157.4 cm; Wt 68.0 kg
[2024-05-03] MEDS ORDERED: Ketorolac Tromethamine 60 MG/2 ML VIAL IM ONE (21:05)
[2024-05-03] MEDS ORDERED: Amoxicillin/Clavulanate Pota 875 MG TAB PO ONE (21:05)
[2024-05-03] MEDS ORDERED: AMOX-CLAV 875-1 EACH PO (21:06)
[2024-05-03] MEDS ORDERED: MELOXICAM15 MG PO (21:06)
[2024-05-03] MEDS ORDERED: Acetaminophen/Oxycodone 5 MG/325 MG TABLET PO ONE (21:10)
== END 2024-05-03 21:35 | disposition home or self-care (01) ==
LOC: ED 20:32
DX: K04.7 Periapical abscess without sinus (principal); F17.210 Nicotine dependence, cigarettes, uncomplicated; Z88.2 Allergy status to sulfonamides; Z79.899 Other long term (current) drug therapy; Z90.49 Acquired absence of other specified parts of digestive tract; Z90.710 Acquired absence of both cervix and uterus; Z90.89 Acquired absence of other organs; Z98.890 Other specified postprocedural states

== ENCOUNTER 2024-06-04 21:28 | Emergency (ER) | payer OTHER ==
[~2024-06-04] VITALS: Ht 157.4 cm; Wt 68.0 kg
[~2024-06-04 21:28] MED LIST changes: +AMOX-CLAV 875-1 EACH PO
[2024-06-04] MEDS ORDERED: PREDNISONE20 M1 PO (21:58)
[2024-06-04] MEDS ORDERED: methylPREDNISolone sod succ 125 MG VIAL IM ONE (22:05)
== END 2024-06-04 22:43 | disposition home or self-care (01) ==
LOC: ED 21:28
DX: K50.90 Crohn's disease, unspecified, without complications (principal); F32.A Depression, unspecified; J45.909 Unspecified asthma, uncomplicated; F17.200 Nicotine dependence, unspecified, uncomplicated; F12.90 Cannabis use, unspecified, uncomplicated; Z88.2 Allergy status to sulfonamides; Z90.49 Acquired absence of other specified parts of digestive tract; Z98.890 Other specified postprocedural states; Z90.710 Acquired absence of both cervix and uterus; Z90.89 Acquired absence of other organs

== ENCOUNTER 2024-06-14 19:05 | Emergency (ER) | payer OTHER ==
[~2024-06-14] VITALS: Ht 157.4 cm; Wt 68.0 kg
[2024-06-14 19:53] LABS: BASO # 0.1 10*3/uL (0.0-0.1); BASO % 0.6 % (0.0-1.0); EOS # 0.2 10*3/uL (0.0-0.4); EOS % 1.8 % (1.0-4.0); HEMATOCRIT 42.1 % (37.0-47.0); LYMPH # 3.5 10*3/uL (1.3-4.4); MEAN CELL VOLUME 97.2 fl (81.0-99.0); MONO # 0.7 10*3/uL (0.1-1.0); MONO % 7.2 % (3.0-9.0); NEUT # 5.3 10*3/uL (2.3-7.9); PLATELET COUNT AUTOMATED 323 10*3/uL (130-400); RED BLOOD COUNT 4.33 10*6/uL (4.10-5.10); RED CELL DISTRI WIDTH 12.4 % (0-14.5); WHITE BLOOD COUNT 9.8 10*3/uL (4.8-10.8)
[2024-06-14 20:12] LABS: ALKALINE PHOSPHATASE 72 U/L (46-116); BUN 10 mg/dl (9-23); CHLORIDE 103 mmol/L (98-107); POTASSIUM 3.3 mmol/L (3.4-5.1); SGPT/ALT 9 U/L (5-49); TOTAL PROTEIN 6.4 gm/dL (6.0-8.0)
[2024-06-14] MEDS ORDERED: MEPERIDINE HYDROCHLORIDE 25 MG/1 ML VIAL IM ONE (20:30)
[2024-06-14] MEDS ORDERED: POTASSIUM CHLORIDE 20 MEQ TAB PO ONE (20:30)
[2024-06-14] MEDS ORDERED: methylPREDNISolone sod succ 125 MG VIAL IM ONE (20:30)
[2024-06-14] MEDS ORDERED: Promethazine Hydrochloride 25 MG/ML VIAL IM ONE (20:30)
== END 2024-06-14 20:55 | disposition home or self-care (01) ==
LOC: ED 19:05
PROVIDERS: Internal Medicine
DX: K50.90 Crohn's disease, unspecified, without complications (principal); E87.6 Hypokalemia; R19.7 Diarrhea, unspecified; F32.A Depression, unspecified; J45.909 Unspecified asthma, uncomplicated; F17.200 Nicotine dependence, unspecified, uncomplicated; F12.90 Cannabis use, unspecified, uncomplicated; Z88.2 Allergy status to sulfonamides; Z90.49 Acquired absence of other specified parts of digestive tract; Z90.89 Acquired absence of other organs; Z90.710 Acquired absence of both cervix and uterus; Z98.890 Other specified postprocedural states

== ENCOUNTER 2024-07-10 23:23 | Emergency (ER) | payer OTHER ==
[~2024-07-10] VITALS: Ht 167.6 cm; Wt 72.6 kg
[2024-07-11 00:13] LABS: BASO # 0.1 10*3/uL (0.0-0.1); BASO % 0.9 % (0.0-1.0); EOS # 0.2 10*3/uL (0.0-0.4); EOS % 2.5 % (1.0-4.0); HEMATOCRIT 43.5 % (37.0-47.0); MEAN CELL VOLUME 98.2 fl (81.0-99.0); MEAN CORPUSCULAR HGB CONC 33.6 g/dl (33.0-37.0); MEAN PLATELET VOLUME 9.1 fl (9.6-12.3); MONO # 0.7 10*3/uL (0.1-1.0); MONO % 8.6 % (3.0-9.0); NEUT # 4.1 10*3/uL (2.3-7.9); NEUT % 50.6 % (47.0-73.0); PLATELET COUNT AUTOMATED 275 10*3/uL (130-400); RED BLOOD COUNT 4.43 10*6/uL (4.10-5.10); RED CELL DISTRI WIDTH 12.5 % (0-14.5); WHITE BLOOD COUNT 8.1 10*3/uL (4.8-10.8)
[2024-07-11] MEDS ORDERED: Promethazine Hydrochloride 25 MG/ML VIAL IM ONE (00:40)
[2024-07-11] MEDS ORDERED: methylPREDNISolone sod succ 125 MG VIAL IM ONE (00:40)
[2024-07-11] MEDS ORDERED: MEPERIDINE HYDROCHLORIDE 25 MG/1 ML VIAL IM ONE (00:40)
[2024-07-11 00:48] LABS: ALKALINE PHOSPHATASE 67 U/L (46-116); BUN 9 mg/dl (9-23); CHLORIDE 106 mmol/L (98-107); LIPASE 41 U/L (12-53); POTASSIUM 3.3 mmol/L (3.4-5.1); SGPT/ALT 15 U/L (5-49); TOTAL PROTEIN 6.4 gm/dL (6.0-8.0)
[2024-07-11] MEDS ORDERED: POTASSIUM CHLORIDE 20 MEQ TAB PO ONE (01:00)
== END 2024-07-11 02:29 | disposition home or self-care (01) ==
LOC: ED 23:23
PROVIDERS: Internal Medicine
DX: K50.90 Crohn's disease, unspecified, without complications (principal); E87.6 Hypokalemia; J45.909 Unspecified asthma, uncomplicated; F32.A Depression, unspecified; F17.200 Nicotine dependence, unspecified, uncomplicated; F12.90 Cannabis use, unspecified, uncomplicated; Z88.2 Allergy status to sulfonamides; Z90.49 Acquired absence of other specified parts of digestive tract; Z98.890 Other specified postprocedural states; Z90.710 Acquired absence of both cervix and uterus; Z90.89 Acquired absence of other organs

== ENCOUNTER 2024-08-24 22:29 | Emergency (ER) | payer OTHER ==
[~2024-08-24] VITALS: Ht 157.4 cm; Wt 68.0 kg
[2024-08-24] MEDS ORDERED: methylPREDNISolone sod succ 1,000 MG/16 ML VIAL IM ONE (23:00)
[2024-08-24 23:18] LABS: BASO # 0.1 10*3/uL (0.0-0.1); BASO % 0.7 % (0.0-1.0); EOS # 0.1 10*3/uL (0.0-0.4); EOS % 1.2 % (1.0-4.0); HEMATOCRIT 43.4 % (37.0-47.0); MEAN CELL VOLUME 95.8 fl (81.0-99.0); MEAN CORPUSCULAR HGB 32.9 pg (27.0-31.0); MEAN CORPUSCULAR HGB CONC 34.3 g/dl (33.0-37.0); MEAN PLATELET VOLUME 9.2 fl (9.6-12.3); MONO # 0.7 10*3/uL (0.1-1.0); MONO % 6.5 % (3.0-9.0); NEUT # 6.3 10*3/uL (2.3-7.9); NEUT % 60.3 % (47.0-73.0); PLATELET COUNT AUTOMATED 292 10*3/uL (130-400); RED BLOOD COUNT 4.53 10*6/uL (4.10-5.10); RED CELL DISTRI WIDTH 12.1 % (0-14.5); WHITE BLOOD COUNT 10.4 10*3/uL (4.8-10.8)
[2024-08-24] MEDS ORDERED: methylPREDNISolone sod succ 125 MG VIAL IM ONE ×2 (23:20→23:40)
[2024-08-24 23:37] LABS: ALKALINE PHOSPHATASE 79 U/L (46-116); BUN 6 mg/dl (9-23); CHLORIDE 106 mmol/L (98-107); POTASSIUM 3.4 mmol/L (3.4-5.1); SGPT/ALT 10 U/L (5-49); TOTAL PROTEIN 6.6 gm/dL (6.0-8.0)
== END 2024-08-25 00:39 | disposition home or self-care (01) ==
LOC: ED 22:29
PROVIDERS: Internal Medicine
DX: K52.89 Other specified noninfective gastroenteritis and colitis (principal); F32.A Depression, unspecified; J45.909 Unspecified asthma, uncomplicated; Z88.2 Allergy status to sulfonamides; F17.200 Nicotine dependence, unspecified, uncomplicated; Z90.49 Acquired absence of other specified parts of digestive tract; Z90.89 Acquired absence of other organs; Z90.710 Acquired absence of both cervix and uterus; Z98.890 Other specified postprocedural states

== ENCOUNTER 2024-10-09 20:24 | Emergency (ER) | payer OTHER ==
[~2024-10-09] VITALS: Ht 157.4 cm; Wt 68.0 kg
[2024-10-09] MEDS ORDERED: Ondansetron Hydrochloride 4 MG TAB SL ONE (21:15)
[2024-10-09 21:22] LABS: BASO # 0.1 10*3/uL (0.0-0.1); BASO % 0.6 % (0.0-1.0); EOS # 0.3 10*3/uL (0.0-0.4); EOS % 2.6 % (1.0-4.0); HEMATOCRIT 39.3 % (37.0-47.0); MEAN CELL VOLUME 96.3 fl (81.0-99.0); MEAN CORPUSCULAR HGB 32.8 pg (27.0-31.0); MEAN CORPUSCULAR HGB CONC 34.1 g/dl (33.0-37.0); MEAN PLATELET VOLUME 9.2 fl (9.6-12.3); MONO # 0.7 10*3/uL (0.1-1.0); MONO % 6.7 % (3.0-9.0); NEUT % 49.9 % (47.0-73.0); PLATELET COUNT AUTOMATED 324 10*3/uL (130-400); RED BLOOD COUNT 4.08 10*6/uL (4.10-5.10); RED CELL DISTRI WIDTH 12.1 % (0-14.5)
[2024-10-09 21:45] LABS: ALKALINE PHOSPHATASE 63 U/L (46-116); CHLORIDE 105 mmol/L (98-107); LIPASE 37 U/L (12-53); POTASSIUM 3.1 mmol/L (3.4-5.1); SGPT/ALT 9 U/L (5-49); TOTAL PROTEIN 5.9 gm/dL (6.0-8.0)
[2024-10-09 21:46] LABS: BUN < 5 mg/dl (9-23)
[2024-10-10] MEDS ORDERED: POTASSIUM CHLORIDE 20 MEQ TAB PO ONE (00:30)
[2024-10-10] MEDS ORDERED: methylPREDNISolone sod succ 125 MG VIAL IM ONE (00:30)
[2024-10-10] MEDS ORDERED: Promethazine Hydrochloride 25 MG/ML VIAL IM ONE (00:30)
[2024-10-10] MEDS ORDERED: MEPERIDINE HYDROCHLORIDE 25 MG/1 ML VIAL IM ONE (00:30)
== END 2024-10-10 01:00 | disposition home or self-care (01) ==
LOC: ED 20:24
PROVIDERS: Internal Medicine
DX: K50.90 Crohn's disease, unspecified, without complications (principal); E87.6 Hypokalemia; F32.A Depression, unspecified; K92.1 Melena; J45.909 Unspecified asthma, uncomplicated; F17.200 Nicotine dependence, unspecified, uncomplicated; Z88.2 Allergy status to sulfonamides; Z90.49 Acquired absence of other specified parts of digestive tract; Z90.89 Acquired absence of other organs; Z90.710 Acquired absence of both cervix and uterus; Z98.890 Other specified postprocedural states